=== PATIENT | male | born 1945 | race Caucasian/White ===

== ENCOUNTER 2024-02-17 13:43 | Emergency (ER) | payer MEDICARE, OTHER, SELFPAY ==
[2024-02-17 13:56] VITALS: BP 136/89
[2024-02-17] MEDS: TYLENOL 650 MG PO (17:51)
[2024-02-17] MEDS: MOTRIN 600 MG PO (17:52)
--- NOTE | 2024-02-17 17:57 | ED.GENMED ---
History of Present Illness
General
Chief Complaint: Extremity Pain (non-traumatic)
Source: patient and spouse
Exam Limitations: none
Time Seen by Provider: 02/17/24 15:40
Nursing documentation reviewed up to this point in time: agreed with
History of Present Illness
History of Present Illness:
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 He claims
that he had intermittent pain with movement and positioning over the past few months does have some chronic neck issues. He claims that today after doing the work he noticed increased stiffness discomfort with overhead movement. Denies any chest
pain shortness of breath nausea vomiting or diaphoresis.
Review of Systems
Review of Systems
Allergies reviewed?: Yes
All Other Systems: ROS reviewed and negative except as documented in HPI and ROS
Phy Exam
Physical Exam
Physical Exam:
GENERAL: Alert , in no apparent distress
EYE: pupils equal and reactive
NECK: Supple, no significant adenopathy.
ENT: o/p clr, mmm.
CARDIAC: Regular rate and rhythm .
LUNGS: Clear breath sounds bilaterally, no acute respiratory distress, no wheezes/rales/rhonchi
ABDOMEN: Soft, without focal tenderness, no r/g, no cvat
NEUROLOGICAL: Alert and oriented, no focal neuro deficits
SKIN: Warm and dry, skin intact.
MUSCULOSKELETAL: Increased discomfort with movement of the left shoulder especially with overhead movement and reproducible discomfort to left shoulder when palpating. No edema, well perfused.
PSYCH: Normal and appropriate interaction.
Course
Orders/Labs/Results
Orders:
Orders
02/17/24 13:59
ECG [Electrocardiogram (*1)] Urgent
Reason for Study: Other
Other Reason for Exam: L shoulder pain
EKG- Treatment ONCE
Shoulder, Left, Trauma CR [CR Shoulder, Trauma - Left] Urgent
Comment:
Reason For Exam: pain
02/17/24 17:39
Sling Left-Treatment ONCE
Acetaminophen [Tylenol] 650 mg PO NOW STA
Ibuprofen [Motrin] 600 mg PO NOW STA
Vital Signs
Initial and Last Documented VS:
Initial Vital Signs
Temp Pulse Resp BP Pulse Ox
99.0 F 67 18 136/89 97
02/17/24 13:56 02/17/24 13:56 02/17/24 13:56 02/17/24 13:56 02/17/24 13:56
Last Documented Vital Signs
Temp Pulse Resp BP Pulse Ox
99.0 F 67 18 136/89 97
02/17/24 13:56 02/17/24 13:56 02/17/24 13:56 02/17/24 13:56 02/17/24 13:56
MDM/Problems Addressed
MDM/Problems Addressed:
78-year-old male presenting to the emergency department with concerns of left shoulder discomfort. Pain is made worse with certain movements and palpation blood pressure and vital signs are normal upon arrival here. Denies any chest pain shortness
of breath nausea vomiting. No radiation of symptoms. Initial EKG with no acute abnormalities. X-ray with significant degenerative changes but no acute processes. No evidence of infection redness or warmth. Symptoms do not sound to be consistent
with referred pain with lack of additional associated symptoms and reproducibility of symptoms as well as chronicity of symptoms. Patient advised for close outpatient follow-up return precautions given.
*Critical Care Note
Total Time (30-74mins, 75-104mins- exclusive of procedures): Not Applicable
ED Attending Note
-
Portions of this chart may have been created with voice recognition software.� Occasional wrong word or��sound alike� substitutions may have occurred due to the inherent limitations of voice recognition software.
Discharge Plan
Departure
Patient Disposition: Home (Routine Discharge)
Date of Disposition: 02/17/24
Time of Disposition: 17:57
Patient with high blood pressure during this ER visit?: No
Condition: Good
Covid-19: Not Applicable
Discharge Problem:
Left shoulder pain
Instructions: Shoulder Sprain (DC)
Prescriptions:
New
ibuprofen 400 mg tablet
400 mg PO Q8H PRN (Reason: Pain) Qty: 7 0RF
acetaminophen 325 mg capsule
650 mg PO Q6H PRN (Reason: Pain) Qty: 10 0RF
No Action
cefdinir 300 mg capsule
300 mg PO BID 7 Days Qty: 14 0RF
Referrals:
Chalino nKott MD [Family Provider] -
Elliot Jara MD [Active] - Follow up in 5-7 days
Activity Restrictions/Additional Instructions:
You can to the emergency department today with concerns of shoulder discomfort. Please rest and lightly exercise the area until follow-up orthopedics. Return to the emergency department for any worsening, new or concerning symptoms.
Discharge Date and Time
Print Language: GERMAN
[2024-02-17 18:39] VITALS: BP 172/82
== END 2024-02-17 18:40 | disposition home or self-care (01) ==
LOC: EMR 13:43
PROVIDERS: EMERGENCY PHYSICIAN Emergency Medicine; FAMILY PHYSICIAN Family Medicine
DX: M25.512 Pain in left shoulder (principal); G40.909 Epilepsy, unspecified, not intractable, without status epilepticus; Z86.73 Personal history of transient ischemic attack (TIA), and cerebral infarction without residual deficits
CPT/HCPCS: 99283; 73030; 93005

== ENCOUNTER 2024-05-12 19:03 | Inpatient (IN) | payer MEDICARE, OTHER, SELFPAY ==
[2024-05-12 15:28] VITALS: BP 105/70
[2024-05-12 16:06] LABS: ALT (SGPT) 37 U/L (0-50); AST (SGOT) 33 U/L (17-59); Albumin 3.1 g/dl (3.5-5.0); Alkaline Phosphatase 114 U/L (38-126); Blood Urea Nitrogen 25 mg/dl (9-20); Calcium 8.4 mg/dl (8.4-10.2); Carbon Dioxide 24 mmol/L (22-30); Chloride 97 mmol/L (98-107); Glucose 166 mg/dl (70-99); Potassium 3.7 mmol/L (3.5-5.1); Sodium 136 mmol/L (135-145); Total Bilirubin 0.7 mg/dl (0.2-1.3); Total Protein 5.9 g/dl (6.3-8.2); eGFR > 60.00
[2024-05-12 16:14] LABS: COVID-19 Antigen Negative (Negative)
--- NOTE | 2024-05-12 16:24 | ED.GENMED ---
History of Present Illness
General
Chief Complaint: Cold/Flu/URI Symptoms
Source: patient
Exam Limitations: none
Time Seen by Provider: 05/12/24 16:23
Nursing documentation reviewed up to this point in time: agreed with
History of Present Illness
History of Present Illness:
78-year-old male history of CVA, hypertension, seizure disorder presenting emergency department today with concerns of shortness of breath, fever and cough for the past week. He notes that his cough is productive and he will occasionally cough up
sputum. Patient reports that this started a week ago and he attributed it to the flu. Patient states that he then saw his primary care provider in the office who recommended getting a chest x-ray. His fever today was 103 F, he subsequently took
Tylenol. He lives at home. He also notes chest discomfort across his chest associated with coughing. He denies back pain. Denies recent long distance travel. Denies smoking. Denies redness or swelling in his legs, headaches, sore throat.
Review of Systems
Review of Systems
All Other Systems: ROS reviewed and negative except as documented in HPI and ROS
Phy Exam
Physical Exam
Physical Exam:
General: Patient is well appearing and in no acute distress; non-toxic
Skin: Warm and dry, no rashes or lesions
Head: Normocephalic, atraumatic
Eyes: Sclera non-icteric. EOMs intact. PERRLA.
Cardiac: Regular rate and rhythm, no murmurs
Peripheral Vascular: No lower extremity swelling or edema
Pulm: Patient mildly tachypneic otherwise normal respiratory effort, decreased lung sounds on the left with scattered rhonchi
Abdomen: No abdominal tenderness to palpation, no palpable masses
Neuro: CN II-XII intact, no focal neurologic deficits.
Psychiatric: Appropriate mood and affect.
Sepsis
Sepsis Screening
Sepsis Assessment: Sepsis
Sepsis Screen
Sepsis Screen: Sepsis
Date: 05/12/24
Time: 18:11
Course
Orders/Labs/Results
Orders:
Orders
05/12/24 15:25
CR Chest - 2 Views Urgent
Comment:
Reason For Exam: cough
05/12/24 15:36
COVID-19 Antigen Urgent
Source: Nasal Swab
Complete Blood Count/With Diff Urgent
Comprehensive Metabolic Panel Urgent
Influenza A+B Rapid Molecular Urgent
CRYSTAL Source: Nasal Swab
Specimen Description:
05/12/24 16:47
CT Chest With Iv Contrast Urgent
Comment:
Reason For Exam: generalized chest pain, left pleural effusion
0.9% Sodium Chloride 500 ml [Nss] 500 ml IV BOLUS
Azithromycin [Zithromax] 500 mg PO NOW STA
CefTRIAXone [Rocephin] 1,000 mg IV NOW STA
05/12/24 17:01
Lactic Acid Urgent
Blood Culture Routine
CRYSTAL Source: Blood/Venous
Specimen Description:
Blood Culture Urgent
CRYSTAL Source: Blood/Venous
Specimen Description:
05/12/24 17:07
Sterile Water [Sterile Water For Injection] 10 ml .ROUTE .[facility]
Abnormal Lab Results
05/12/24
15:36
WBC 37.0 H 10^3/uL
(4.8-10.8)
RBC 3.79 L 10^6/uL
(4.70-6.10)
Hgb 11.6 L g/dL
(13.0-18.0)
Hct 32.2 L %
(39.0-52.0)
Plt Count 767 H 10^3/uL
(130-400)
Abs Immat Gran (auto) 0.5 H 10^3/uL
(0-0.05)
Absolute Neuts (auto) 33.5 H 10^3/uL
(1.4-6.5)
Absolute Lymphs (auto) 1.0 L 10^3/uL
(1.2-3.4)
Absolute Monos (auto) 2.0 H 10^3/uL
(0.1-0.6)
Immature Gran % 1.2 H %
(0-0.5)
Neutrophils % 90.5 H %
(42.2-75.2)
Lymphocytes % 2.8 L %
(20.5-51.1)
Chloride 97 L mmol/L
(98-107)
BUN 25 H mg/dl
(9-20)
Glucose 166 H mg/dl
(70-99)
Total Protein 5.9 L g/dl
(6.3-8.2)
Albumin 3.1 L g/dl
(3.5-5.0)
05/12/24 15:36
05/12/24 15:36
Vital Signs
Initial and Last Documented VS:
Initial Vital Signs
Temp Pulse Resp BP Pulse Ox
98.9 F 105 24 105/70 95
05/12/24 15:28 05/12/24 15:28 05/12/24 15:28 05/12/24 15:28 05/12/24 15:28
Last Documented Vital Signs
Temp Pulse Resp BP Pulse Ox
98.9 F 87 26 145/63 92
05/12/24 15:28 05/12/24 17:15 05/12/24 17:15 05/12/24 17:00 05/12/24 17:15
MDM/Problems Addressed
Differential Diagnosis Includes:
Differentials include pneumonia, pleural effusion, COVID-19, influenza, acute bronchitis, heart failure
MDM/Problems Addressed:
78-year-old male history of CVA, hypertension presents emergency department today with a week of shortness of breath, fever, and flulike symptoms. He did have a fever at home but was afebrile upon presentation to the emergency department. He was
mildly hypotensive at 105/70 and mildly tachycardic at 105 upon arrival. He has decreased breath sounds on the left side. He was found to have a left-sided pleural effusion with possible underlying pneumonia or mass, blood cultures ordered,
lactate ordered, IV fluids and antibiotics started. He comes from home and has no obvious risk factors for drug-resistant pneumonia CBC reveals leukocytosis of 37 K with left shift, this will require further workup, concern for malignancy. CT
ordered for better characterization of pulmonary disease. Hospitalist notified.
Chronic conditions affecting care:
HTN, CVA
Acute Exacerbation and/or Progression of Chronic Illness:
n/a
*Pulse Oximetry
Patient hypoxic: no
*Critical Care Note
Total Time (30-74mins, 75-104mins- exclusive of procedures): Not Applicable
Data Reviewed
Review of Other/Old Records Reveals: Records (No hospital discharge summary in [facility] to review, reviewed previous ER physician documentation from 02/17/2024 patient was seen for left shoulder pain, also reviewed previous ER visit or patient was
seen for general malaise and fatigue)
Source: patient and records
Patient Management
Escalation/DeEscalation of care consider admission/obs:
Reviewed case with my attending Dr. Chapa. Patient referred for admission
ED Attending Note
-
Portions of this chart may have been created with voice recognition software.� Occasional wrong word or��sound alike� substitutions may have occurred due to the inherent limitations of voice recognition software.
Discharge Plan
Departure
Patient Disposition: Admit
Date of Disposition: 05/12/24
Time of Disposition: 17:50
Admit to: Med/Surg
Presentation/result/management discussed w/ accepting MD/DO: Hospitalist
Condition: Good
Discharge Problem:
Pleural effusion on right, Community acquired pneumonia
Prescriptions:
No Action
cefdinir 300 mg capsule
300 mg PO BID 7 Days Qty: 14 0RF
ibuprofen 400 mg tablet
400 mg PO Q8H PRN (Reason: Pain) Qty: 7 0RF
acetaminophen 325 mg capsule
650 mg PO Q6H PRN (Reason: Pain) Qty: 10 0RF
Referrals:
UNKNOWN - PT DOES,NOT KNOW [Unknown Provider] -
Interventions
Interventions:
*Risk Screen - Suicide Last Done: 05/12/24 15:28
*General Assessment Last Done: 05/12/24 15:28
*Neglect/Abuse Screening Last Done: 05/12/24 15:28
*ED COVID-19 Vaccine History Last Done: 05/12/24 17:03
ED- Pulmonary Assessment Last Done: 05/12/24 17:03
Discharge Date and Time
Print Language: TRINIDADIAN
[2024-05-12 16:37] LABS: % Basophils 0.2 % (0-2); % Immature Granulocytes 1.2 % (0-0.5); % Lymphocytes 2.8 % (20.5-51.1); % Monocytes 5.3 % (1.7-9.3); % Neutrophils 90.5 % (42.2-75.2); Absolute Basophils 0.1 10^3/uL (0-0.2); Absolute Immature Granulocytes 0.5 10^3/uL (0-0.05); Absolute Neutrophils 33.5 10^3/uL (1.4-6.5); Hematocrit 32.2 % (39.0-52.0); Hemoglobin 11.6 g/dL (13.0-18.0); Mean Corpuscular Hgb 30.6 pg (27.0-31.0); Mean Platelet Volume 8.9 fL (7.4-10.4); Nucleated Red Blood Cells % 0 % (-); Platelet Count 767 10^3/uL (130-400); Red Blood Cell Count 3.79 10^6/uL (4.70-6.10); Red Cell Dist. Width 13.2 % (11.5-14.5)
[2024-05-12 16:54] VITALS: BP 134/74
[2024-05-12 17:00] VITALS: BP 145/63
[2024-05-12 17:02] VITALS: BMI 20.3
[2024-05-12] MEDS: ZITHROMAX 500 MG PO (17:09)
[2024-05-12] MEDS: ROCEPHIN 1000 MG IV (17:09)
[2024-05-12] MEDS: NSS 500 IV (17:09)
[2024-05-12 17:27] LABS: Lactic Acid 1.9 mmol/L (0.7-2.0)
--- NOTE | 2024-05-12 18:26 | HPS.HSE ---
Family Physician
-
Family Physician: Chalino Knott
Chief Complaint
-
Fever, cough and shortness of breath
History of Present Illness
It started 2 weeks ago. He started to have nasal congestion, cough and not feeling well. He took Mucinex. He felt better but then since last week symptoms started to come back. He is having persistent chest congestion now. Inability to
expectorate. Started to have fevers and chills. No sweats. And then he started to notice shortness which is getting worse.
Didn't not yet take antibiotics.
Denies any primary lung problem. Denies any prior history of pneumonia. Neck smoker quit 4 years ago.
Denies any cardiac disease-no CAD or heart failure.
Denies any nausea vomiting or diarrhea.
No abdominal pain.
No recent travel anywhere.
No contact with sick people.
Medical History
Past Medical History
Past Medical History: Reports CVA (TIA), Seizures and Other (TBI)
Past Surgical History: Reports None
Social History
Tobacco: Former Smoker
Personal:
Living: With Family
Employment: Retired
Family History
Family History: Not pertinent
Allergies / Home Medications
Allergies reflects when Allergies were last updated in [facility].
Home Medications with original date entered in [facility]
Allergy/Medication List:
Allergies
Allergy/AdvReac Type Severity Reaction Status Date / Time
levetiracetam [From [facility]] Allergy Unknown Verified 05/12/24 15:33
oxcarbazepine Allergy Unknown Verified 05/12/24 15:33
Home Medications
aspirin 81 mg tablet,delayed release 81 mg PO DAILY@1300 05/12/24
budesonide 3 mg capsule,delayed,extended release 3 mg PO DAILY@1300 05/12/24
cyanocobalamin (vitamin B-12) 1,000 mcg tablet 1,000 mcg PO DAILY@1300 05/12/24
doxazosin 1 mg tablet 1 mg PO DAILY 05/12/24
gabapentin 100 mg capsule 100 mg PO QPM 05/12/24
lacosamide 100 mg tablet 100 mg PO BID 05/12/24
lorazepam 1 mg tablet 1 mg PO QPM 05/12/24
omeprazole 40 mg capsule,delayed release 40 mg PO DAILY@1300 05/12/24
Review of Systems
-
A 12 point ROS was completed and negative except as noted: Yes
Physical Exam
Vital Signs
Vital Signs
Temp Pulse Resp BP Pulse Ox
98.9 F 87 26 145/63 92
05/12/24 15:28 05/12/24 17:15 05/12/24 17:15 05/12/24 17:00 05/12/24 17:15
Physical Exam
General: Comfortable
Respiratory: Crackles (Few in right base), Non Labored Respirations and Decreased Breath Sounds (right base); No Accessory Resp Muscle Use
GI: Soft, Non Tender and No Hepatosplenomegaly
Neuro: AO x 3
Psych: Calm
Laboratory Results
-
05/12/24 15:36
05/12/24 15:36
Laboratory Results
Lactic Acid 1.9 mmol/L (0.7-2.0) 05/12/24 17:01
Total Bilirubin 0.7 mg/dl (0.2-1.3) 05/12/24 15:36
AST 33 U/L (17-59) 05/12/24 15:36
ALT 37 U/L (0-50) 05/12/24 15:36
Alkaline Phosphatase 114 U/L (38-126) 05/12/24 15:36
Data Reviewed
-
Diagnostic Radiology: Report Reviewed by me (cxr)
Lab Data: Labs Reviewed by me
Impression/Plan
-
Community-acquired pneumonia involving the right lung and complicated by moderate right pleural effusion. Patient without any underlying lung disease but I do see a CT in 2020 showed right lower lobe pulmonary nodules. He does not remember getting
a follow-up CAT scan. But based on the history of 2 weeks of symptoms and fevers concerned more about infectious pneumonia. Immunocompetent patient.
Admit to hospital. Start on empirical ceftriaxone and doxycycline. Check blood cultures, sputum cultures and Legionella antigen.
Consult pulmonary.
Start on antitussives.
Consult IR for diagnostic and therapeutic right thoracentesis. Labs were right thoracentesis requested.
Follow Chest CT ordered in ED.
Leukocytosis - significant elevation with thrombocytosis - no prior hx of myeloproliferative disorder. Treat pneumonia and follow white count.
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
Full code
[2024-05-12 18:43] VITALS: BP 139/72
[2024-05-12 19:00] VITALS: BP 144/66
[2024-05-12 20:14] VITALS: BP 127/73
[2024-05-12 20:15] VITALS: BMI 19.8
[2024-05-12] MEDS: NEURONTIN 100 MG PO (21:15)
[2024-05-12] MEDS: TYLENOL 650 MG PO (21:15)
[2024-05-12] MEDS: MELATONIN 5 MG PO (21:15)
[2024-05-12] MEDS: ATIVAN 1 MG PO (21:15)
[2024-05-12] MEDS: VIMPAT 100 MG PO (21:15)
[2024-05-12] MEDS: MUCINEX 600 MG PO (21:15)
[2024-05-12] MEDS: VIBRAMYCIN 100 MG PO (21:15)
[2024-05-12 22:13] LABS: LDH 184 U/L (120-246)
[2024-05-12] MEDS: STERILE WATER FOR INJECTION 10 ML IV (23:00)
[2024-05-12] MEDS: MAXIPIME 1000 MG IV (23:25)
[2024-05-13] VITALS (8 sets, daily range): BP systolic 88–149; BP diastolic 63–79; PULSE 87; O2SAT 96
[2024-05-13 07:27] LABS: Hematocrit 32.7 % (39.0-52.0); Hemoglobin 11.7 g/dL (13.0-18.0); Mean Corp Hgb Conc. 35.8 g/dL (33.0-37.0); Mean Corpuscular Hgb 31.8 pg (27.0-31.0); Mean Corpuscular Volume 88.9 fL (80.0-94.0); Mean Platelet Volume 8.9 fL (7.4-10.4); Platelet Count 803 10^3/uL (130-400); Red Blood Cell Count 3.68 10^6/uL (4.70-6.10); Red Cell Dist. Width 13.2 % (11.5-14.5); White Blood Cell Count 46.8 10^3/uL (4.8-10.8)
[2024-05-13 07:46] LABS: Blood Urea Nitrogen 23 mg/dl (9-20); Calcium 8.2 mg/dl (8.4-10.2); Carbon Dioxide 30 mmol/L (22-30); Chloride 96 mmol/L (98-107); Estimated Creatinine Clearance 68 ml/min; Glucose 100 mg/dl (70-99); Potassium 3.5 mmol/L (3.5-5.1); Sodium 139 mmol/L (135-145); eGFR > 60.00
[2024-05-13] MEDS: MUCINEX 600 MG PO ×2 (07:53→20:12)
[2024-05-13] MEDS: VIBRAMYCIN 100 MG PO ×2 (07:53→20:12)
[2024-05-13] MEDS: VIMPAT 100 MG PO ×2 (07:54→20:13)
[2024-05-13] MEDS: CARDURA 1 MG PO (07:54)
--- NOTE | 2024-05-13 09:39 | PTOTSP ---
Addendum entered and electronically signed by Pam Romero MS, ST, CCC, PIZZA CHEF 05/22/24 07:31:
BEDSIDE SWALLOW ASSESSMENT Not video swallow
Original Note:
Video Swallow Examination
Patient without gross signs of aspiration, but past VSE demonstrated pharyngeal stasis and trace transient laryngeal penetration. Given this history and current CT findings of possible right lower lobe pna, recommend VSE to objectively assess for
aspiration.
Recommend
1. Continue current diet of Regular solids and thin liquids with patient electing to choose soft foods.
2. Video Swallow Examination
3. Aspiration precautions.
4. Meds as tolerated
Further recommendations based on results of VSE.
--- NOTE | 2024-05-13 12:05 | PTOTSP ---
Video Swallow Examination
No aspiration, however one instance of trace upper laryngeal penetration of thin liquid by consecutive straw sips. Mild pharyngeal stasis mainly within pyriform sinuses increases risk for chronic trace penetration/aspiration.
Recommend
1. Continue current diet of regular solids and thin liquids.
2. NO STRAWS. Encourage dry swallows
3. Meds as tolerated.
4. Aspiration precautions.
[2024-05-13 12:27] LABS: Body Fluid pH 6.94
[2024-05-13] MEDS: TYLENOL 650 MG PO (12:39)
[2024-05-13] MEDS: ASPIR LOW (ENTERIC COATED) 81 MG PO (12:40)
[2024-05-13] MEDS: ENTOCORT EC 3 MG PO (12:40)
[2024-05-13] MEDS: PROTONIX 40 MG PO (12:40)
[2024-05-13] MEDS: VITAMIN B-12 1000 MCG PO (12:41)
[2024-05-13 12:45] LABS: Body Fluid Protein 3.7 g/dl
--- NOTE | 2024-05-13 12:45 | PTCARENOTE ---
Pt returned from [facility] s/p right thoracentesis. Bandaid to right back CDI. Pt drowsy, unsteady on feet, feeling warm, temp checked 102.3. Medicated with tylenol, reassessed, more awake, conversive temp 99.0, requesting a fan, Family at bedside,
updated, plan of care continues.
[2024-05-13 12:53] LABS: Body Fluid LDH 1252 U/L
--- NOTE | 2024-05-13 15:22 | W.PN.HOSP.TC ---
Today's Communication/Plan
-
Consult IR for CT.
Consult ID for abx choice.
Follow cx data.
Assessment / Plan
Assessment / Plan
Community-acquired pneumonia involving the right lung and complicated by moderate right pleural effusion. Patient without any underlying lung disease but I do see a CT in 2020 showed right lower lobe pulmonary nodules. He does not remember getting
a follow-up CAT scan. But based on the history of 2 weeks of symptoms and fevers concerned more about infectious pneumonia. Immunocompetent patient.
No ongoing fevers, significant elevation close leukemoid reaction with regards to white count, fluid pH 6.94, and exudative pleural fluid.
only 120 mL of fluid came out with the initial thoracentesis. Post tomosynthesis chest x-ray still shows significant pleural effusion.
Would benefit chest 2. Consulted IR.
cw empirical ceftriaxone and doxycycline. Check blood cultures, sputum cultures and Legionella antigen. Consult IR.
Consult pulmonary -discussed todat
cw antitussives.
Chest CT noted
Leukocytosis - significant elevation with thrombocytosis - no prior hx of myeloproliferative disorder. Treat pneumonia and follow white count.
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
Full code
DW at bedside
Total time spent on today's encounter was 52 minutes which included time spent in counseling the patient/family regarding diagnosis and treatment plan as listed above, goals of care, and symptom management. Case was discussed with nursing staff,
specialists, and care coordinators/case management. All labs and imaging personally reviewed by me. Remainder the time spent in detailed review of previous records, lab data, imaging, and other medical provider documentation.
Anticipated Discharge: > 48 hours
Subjective/Interval History
-
Date of Service: May 13, 2024
Denies right-sided chest pain. Denies shortness of breath at rest. On room air.
Does not really feel the fevers.
No nausea vomiting.
Objective Data
-
Labs:
Laboratory Results
05/13/24
06:53
WBC 46.8 H*
Hgb 11.7 L
Hct 32.7 L
Plt Count 803 H
Sodium 139
Potassium 3.5
Chloride 96 L
Carbon Dioxide 30
BUN 23 H
Creatinine 0.8
Glucose 100 H
Calcium 8.2 L
Vital Signs:
Vital Signs
Temp Pulse Resp BP Pulse Ox
99.0 F 87 18 141/75 98
05/13/24 14:47 05/13/24 12:41 05/13/24 12:41 05/13/24 12:41 05/13/24 12:41
I&O
05/12/24 05/13/24 05/14/24
06:59 06:59 06:59
Intake Total 240 / 240
Output Total 150 / 150
Balance 90 / 90
Review of Systems
-
Constitutional: Denies Fever
EENT: Denies Sore Throat
Respiratory: Denies Cough or Trouble Breathing
Cardiac: Denies Chest Pain
Abdomen/GI: Denies Abdominal Pain, Nausea or Vomiting
Neuro: Denies Dizzy
Physical Exam
-
General: No Apparent Distress
HEENT: Moist Mucous Membranes
Respiratory: Decreased Breath Sounds (rt base); Negative Wheezes
Cardiac: Regular Rhythm and S1/S2
GI: Soft and Nontender
Neuro: AO x 3
Data Reviewed
-
Labs: Labs Reviewed by me
--- NOTE | 2024-05-13 15:44 | CON.PUL ---
Consultation
Consultation Request
Date/Time Consultation Requested: 05/13/2024
Date/Time Consultation Performed: 05/13/2024
Requesting Provider: Dr. Fischer
Performing Provider: Dr. Jose R García
Reason for Consultation: Pneumonia/Pleural effusion
Medical History
-
History of Present Illness:
78-year-old male with past medical history significant for prior CVA, history of seizures, post TBI who came to the hospital with 2-week history of coughing, chest congestion, feeling tired and weak. Reports some phlegm production without
hemoptysis. Low-grade fevers.
Denied any nausea vomiting or diarrhea.
He had difficulty expectorating. Few days ago started having high fevers and chills. Also progressive shortness of breath.
He denies any underlying pulmonary problems from
He does report intermittent swallowing dysfunction.
Admitted to the hospital on 05/12/2024 for further evaluation given significantly abnormal chest x-ray with right lower lobe abnormality with moderate pleural effusion.
Past Medical History
Past Medical History: Other (See assessment and plan)
Social History
Tobacco: Former Smoker (Longer than 20 years ago he quit)
Alcohol: None
Drug: None
Personal:
Living: With Family
Employment: Retired
Family History
Family History: Reviewed & Not Pertinent
Allergies / Home Medications
Allergies
Allergy/AdvReac Type Severity Reaction Status Date / Time
levetiracetam [From Kera] Allergy Unknown Verified 05/12/24 15:33
oxcarbazepine Allergy Unknown Verified 05/12/24 15:33
Home Medications
�Medication �Instructions �Recorded �Confirmed �Last Taken �Type
aspirin 81 mg tablet,delayed 81 mg PO DAILY@1300 05/12/24 05/12/24 05/11/24 History
release
budesonide 3 mg 3 mg PO DAILY@1300 05/12/24 05/12/24 05/11/24 History
capsule,delayed,extended release
cyanocobalamin (vitamin B-12) 1,000 mcg PO DAILY@1300 05/12/24 05/12/24 05/11/24 History
1,000 mcg tablet
doxazosin 1 mg tablet 1 mg PO DAILY 05/12/24 05/12/24 05/12/24 History
gabapentin 100 mg capsule 100 mg PO QPM 05/12/24 05/12/24 05/11/24 History
lacosamide 100 mg tablet 100 mg PO BID 05/12/24 05/12/24 05/12/24 History
lorazepam 1 mg tablet 1 mg PO QPM 05/12/24 05/12/24 05/11/24 History
omeprazole 40 mg capsule,delayed 40 mg PO DAILY@1300 05/12/24 05/12/24 05/11/24 History
release
Review of Systems
-
History Source: Patient
All other systems: Negative unless noted
Vitals / Labs / Diagnostic Testing
Vital Signs
Temp Pulse Resp BP Pulse Ox
99.0 F 87 18 141/75 98
05/13/24 14:47 05/13/24 12:41 05/13/24 12:41 05/13/24 12:41 05/13/24 12:41
Lab Data
05/13/24 06:53
05/13/24 06:53
Microbiology
05/13/24 11:58 Pleural Fluid Gram Stain - Preliminary
05/13/24 07:41 Sputum Gram Stain - Preliminary
05/13/24 05:32 Urine Legionella Urinary Antigen - Final
Negative for Legionella pneumophila Serogroup 1 antigen.
A negative result does not rule out the possiblity of
Legionella infection due to other serogroups or species of
Legionella. Clinical correlation is recommended.
05/12/24 15:36 Nasal Swab Influenza Types A & B (KRISTYN) - Final
Negative for Influenza A & B, NAAT
Negative results must be combined with clinical observations
and patient history.
Nucleic Acid Amplification test (NAAT)performed on the
[employer] platform.
Diagnostic Testing:
Physical Exam
-
HEENT: Normocephalic
Cardiovascular: S1/S2
Respiratory: Other (Decreased breath sounds in the right)
GI: Soft and Non Distended
Neurology: Awake, Alert, AO x 3 and No Motor Deficits
Skin: Warm
General: Comfortable
Assessment
-
Severe large right lower lobe pneumonia with complicated parapneumonic effusion-cannot rule out empyema
Leukocytosis/Fever
Cannot rule out aspiration event as patient has poor dentition and swallowing dysfunction that is chronic.
Conditions present prior admission:
History of CVA
History of TBI
History of seizure disorder.
Assessment and plan:
Imaging reviewed, CT of the chest with right lower lobe consolidation with moderate pleural effusion.
Cannot rule out underlying lung nodule or mass
Aspiration a possibility despite normal bedside speech evaluation.
Continue with aspiration precaution
Broad-spectrum antibiotics: Cefepime/doxycycline-follow cultures and will adjust antibiotics as necessary.
Follow cultures
Secretion clearance interventions will continue
Thoracentesis performed today 05/13/2024: Exudative. pH<7
Repeat chest x-ray reviewed, with persistent right loculated Pleural effusion.
Cultures pending
Discussed with Dr. Rock, agree with chest tube placement.
-
Monitor fever curve and leukocytosis
-
Will continue to follow
-
Dr. García updated patient and at the bedside on 05/13/2024.
[2024-05-13] MEDS: NEURONTIN 100 MG PO (18:17)
[2024-05-13] MEDS: ATIVAN 1 MG PO (18:17)
[2024-05-13] MEDS: LOVENOX 40 MG SC (18:18)
[2024-05-13] MEDS: MAXIPIME 2000 MG IV (18:18)
[2024-05-13] MEDS: STERILE WATER FOR INJECTION 10 ML IV (18:19)
--- NOTE | 2024-05-13 19:43 | CON.ID ---
Consultation
-
Date/Time Consultation Requested: 05/13/2024 1522
Date/Time Consultation Performed: 05/13/2024 1937
Requesting Provider: Dr. Rock
Performing Provider: Dr. Puga
Reason for Consultation: Pneumonia; suspected empyema; leukocytosis
Chief Complaint / Past History
History of Present Illness
Henri Sánchez is a 78-year-old man being evaluated at the request of Dr. Rock in regards to pneumonia and suspected empyema. History is obtained from chart review, along with patient interview. Additional history was obtained from the patient's
who is present at the bedside.
The patient has underlying history of CVA, seizure disorder and TBI. He resides at home with his and was in his usual state of health until approximately 2 weeks ago when he developed a upper respiratory infection with associated nasal
congestion, runny nose and some sputum. This lasted approximately 5 days and then he felt for approximately 2 days, with subsequent development of fevers, anterior chest tightness. Cough also returned, but at this time no sputum was being
produced. Because of the ongoing respiratory cough and pleuritic chest pain he presented to the emergency room for further evaluation. Here he was found to have a marked right lower lobe infiltrate and suspected pleural effusion/possible empyema.
Infectious Diseases is asked to comment upon further antimicrobial therapy.
The patient reports no sick contacts at home. There is been no recent travel. No history of tuberculosis in the family.
Past History
Additional Past Medical History:
CVA
HTN
Seizure disorder
Hx TBI
Additional Past Surgical History:
Neck fracture; C1-2 fusion
Allergy History:
levetiracetam [From Keppra] Allergy (Verified 05/12/24 15:33)
Unknown
oxcarbazepine Allergy (Verified 05/12/24 15:33)
Unknown
Medications Reviewed: Yes
Current Antibiotics:
Cefepime 2 g IV every 8 hours
Doxycycline
Social History
Tobacco: Former Smoker
Alcohol: None
Drug: None
Personal:
Living: With Family
Employment: Retired ( [employer])
Review of Systems
Vital Signs
Temp Pulse Resp BP Pulse Ox
99 F 82 18 132/74 95
05/13/24 16:40 05/13/24 16:40 05/13/24 16:40 05/13/24 16:40 05/13/24 16:40
Physical Exam
Physical Exam
Constitutional: No Acute Distress, Comfortable, Chronically Ill and Non-toxic
Eyes: No Conjunctival Hemorrhage and Sclera Anicteric
Oral: No Thrush and No Ulcers
Cardiovascular: S1/S2; Negative S3/S4
Pulmonary: Coarse, Non Labored and Other (Decreased breath sounds right base)
Gastrointestinal: Soft, Non Tender, Non Distended, Normal Bowel Sounds and No Rebound
Genito-Urinary: Negative CVA Tenderness
Extremities: Negative Edema, Cyanosis or Erythema
Skin: Warm and Dry; Negative Jaundice
Neurological: Awake and Alert
Psychological: Calm
Lab / Diagnostic Study Results
05/13/24 06:53
05/13/24 06:53
Abs Immat Gran (auto) 0.5 10^3/uL (0-0.05) H 05/12/24 15:36
Absolute Neuts (auto) 33.5 10^3/uL (1.4-6.5) H 05/12/24 15:36
Absolute Lymphs (auto) 1.0 10^3/uL (1.2-3.4) L 05/12/24 15:36
Absolute Monos (auto) 2.0 10^3/uL (0.1-0.6) H 05/12/24 15:36
Absolute Basos (auto) 0.1 10^3/uL (0-0.2) 05/12/24 15:36
Immature Gran % 1.2 % (0-0.5) H 05/12/24 15:36
Neutrophils % 90.5 % (42.2-75.2) H 05/12/24 15:36
Lymphocytes % 2.8 % (20.5-51.1) L 05/12/24 15:36
Monocytes % 5.3 % (1.7-9.3) 05/12/24 15:36
Eosinophils % 0.0 % (0-6) 05/12/24 15:36
Basophils % 0.2 % (0-2) 05/12/24 15:36
Lactic Acid 1.9 mmol/L (0.7-2.0) 05/12/24 17:01
Microbiology Results
Micro:
05/12/24 17:01 Blood Culture - Preliminary
Blood/Venous No Growth in 24 hours- Final report to follow
05/12/24 17:01 Blood Culture - Preliminary
Blood/Venous No Growth in 24 hours- Final report to follow
05/13/24 11:58 Body Fluid Culture - Pending
Pleural Fluid Gram Stain - Preliminary
05/13/24 07:41 Respiratory Culture - Pending
Sputum Gram Stain - Preliminary
05/13/24 05:32 Legionella Urinary Antigen - Final
Urine Negative for Legionella pneumophila Serogroup 1 antigen.
A negative result does not rule out the possiblity of
Legionella infection due to other serogroups or species of
Legionella. Clinical correlation is recommended.
05/12/24 15:36 Influenza Types A & B (KRISTYN) - Final
Nasal Swab Negative for Influenza A & B, NAAT
Negative results must be combined with clinical observations
and patient history.
Nucleic Acid Amplification test (NAAT)performed on the
[employer] platform.
Imaging:
05/13/2024 CXR (portable): Persistent moderate loculated right-sided pleural effusion with adjacent atelectasis. No visible pneumothorax.
05/12/2024 CT chest with contrast: Moderate to large lobulated right pleural effusion, possibly partially loculated, new in the interval since the comparison CT of 2020. Accompanying somewhat rounded/oblong shaped area of heterogeneous slight
decreased attenuation in the right lower lobe measuring approximately 5 cm. Differential diagnostic possibilities include infectious process (such as pneumonia) or mass/tumor. Please see full dictation for additional detail. Film personally
reviewed.
Assessment / Plan
Right lower lobe pneumonia
Pleural effusion versus empyema.
Marked leukocytosis; possible leukemoid reaction
Anemia
Thrombocytosis
CVA
HTN
Seizure disorder
Hx TBI
Recommendations:
Continue with empiric cefepime and doxycycline for the present. Transition cefepime to 1 g IV every 6 hours.
Sputum culture and pleural fluid culture are currently pending.
Legionella urinary antigen negative
Follow white count and temperature curve.
Await possible chest tube placement
Check screening MRSA PCR.
[2024-05-13] MEDS: MELATONIN 5 MG PO (20:13)
[2024-05-14] VITALS (14 sets, daily range): BP systolic 80–157; BP diastolic 54–85; PULSE 97; O2SAT 94; BMI 19.5
[2024-05-14] MEDS: STERILE WATER FOR INJECTION 10 ML IV ×4 (00:37→17:58)
[2024-05-14] MEDS: MAXIPIME 1000 MG IV ×4 (00:37→17:58)
[2024-05-14] MEDS: TYLENOL 650 MG PO ×2 (05:59→17:54)
--- NOTE | 2024-05-14 08:19 | CM ---
met with patient at bedside.patient lives with his in house witb no bertram,his bed andbath is on the second level,he amb i and is I with his adl.he hs no home oxygen.he has had a vn in past and has been to ip rehab at [facility]
PCP:dr manpreet newsome Pharmacy: [facility]
DME:walker,shower chair
PMH:fprmer smoker,cva,seizures,post traumatic brain injury
patient is adm with severe rll pna,on iv abx,po doxy,mucinex,sating 93% on ra,sp r thoracentesis for r pleurl effusion with 150cc fluid obtained,follow cxs.seen by therapy-home pt recommnded,may need st rehab.Plan:home pt vs need for ip rehab.
[2024-05-14 09:11] LABS: Hematocrit 29.9 % (39.0-52.0); Hemoglobin 10.3 g/dL (13.0-18.0); Mean Corp Hgb Conc. 34.4 g/dL (33.0-37.0); Mean Corpuscular Hgb 29.8 pg (27.0-31.0); Mean Corpuscular Volume 86.4 fL (80.0-94.0); Mean Platelet Volume 9.3 fL (7.4-10.4); Platelet Count 739 10^3/uL (130-400); Red Blood Cell Count 3.46 10^6/uL (4.70-6.10); Red Cell Dist. Width 13.2 % (11.5-14.5); White Blood Cell Count 32.7 10^3/uL (4.8-10.8)
[2024-05-14] MEDS: CARDURA 1 MG PO (09:52)
[2024-05-14] MEDS: VIMPAT 100 MG PO ×2 (09:52→21:18)
[2024-05-14] MEDS: VIBRAMYCIN 100 MG PO ×2 (09:52→21:18)
[2024-05-14] MEDS: MUCINEX 600 MG PO ×2 (09:52→21:18)
[2024-05-14 10:14] LABS: Blood Urea Nitrogen 24 mg/dl (9-20); Calcium 7.9 mg/dl (8.4-10.2); Carbon Dioxide 28 mmol/L (22-30); Chloride 97 mmol/L (98-107); Estimated Creatinine Clearance 67 ml/min; Glucose 85 mg/dl (70-99); Potassium 3.7 mmol/L (3.5-5.1); Sodium 135 mmol/L (135-145); eGFR > 60.00
--- NOTE | 2024-05-14 11:02 | W.PN.PUL3 ---
Today's Communication / Plan
-
Continue antibiotics
Chest tube placement
Assessment
-
Severe large right lower lobe pneumonia with complicated parapneumonic effusion-cannot rule out empyema
Leukocytosis/Fever
Cannot rule out aspiration event as patient has poor dentition and swallowing dysfunction that is chronic.
Conditions present prior admission:
History of CVA
History of TBI
History of seizure disorder.
Assessment and plan:
Imaging reviewed, CT of the chest with right lower lobe consolidation with moderate pleural effusion-rule out empyema versus complicated parapneumonic effusion.
Cannot rule out underlying lung nodule or mass
Aspiration a possibility despite normal bedside speech evaluation.
Continue with aspiration precaution
Broad-spectrum antibiotics: Cefepime/doxycycline-follow cultures and will adjust antibiotics as necessary.
Infectious disease consulted, correspondence reviewed.
Follow cultures
Secretion clearance interventions will continue
Thoracentesis performed 05/13/2024: Exudative. pH<7, pH 7.94, total protein 3.7, LDH 1252.
Repeat chest x-ray, with persistent right loculated Pleural effusion.
So far pleural fluid negative
Sputum culture with normal respiratory mic
Discussed with Dr. Rock, agree with chest tube placement. Hopefully chest tube placement today.
Thrombolysis/dornase alpha may be necessary.
Daily chest x-ray
-
Monitor fever curve and leukocytosis-fever curves improving. Leukocytosis improving
-
Will continue to follow
-
Dr. García updated patient and at the bedside on 05/13/2024.
Subjective Data
-
Date of Service:
Date of Service: May 14, 2024
Chief Complaint: Pulmonary Follow Up (Pneumonia with parapneumonic effusion)
Subjective:
No new complaints overnight
Fever curve appears to be trending lower
Denies hemoptysis
Continues to report some coughing
Denies any chest pain
Review of Systems
Cardiopulmonary: Dyspnea (none at rest)
GI: Abdominal Pain (n) and Nausea (n)
Neuro: Headache (n)
Objective Data
Data Reviewed
Vital Signs / I&O / Oxygen:
Vital Signs
Temp Pulse Resp BP Pulse Ox
98.4 F 72 22 132/68 93
05/14/24 09:42 05/14/24 09:52 05/14/24 07:22 05/14/24 09:52 05/14/24 09:42
Intake and Output
05/13/24 05/14/24 05/15/24
06:59 06:59 06:59
Intake Total 240 / 240 1200 / 1200
Output Total 150 / 150
Balance 90 / 90 1200 / 1200
SaO2 93
Physical Exam
General: Comfortable
HEENT: Normocephalic
Cardiovascular: S1-S2
Respiratory: Wheeze (n) and Other (Right-sided crackles/decreased breath sounds at bases)
GI: Soft and Non Distended
Neurology: Awake
Labs/Micro/Reports
Lab Data
05/14/24 07:35
05/14/24 07:35
Microbiology
05/13/24 11:58 Pleural Fluid Body Fluid Culture - Preliminary
No Growth After 18-24 Hours
05/13/24 11:58 Pleural Fluid Gram Stain - Preliminary
05/13/24 07:41 Sputum Respiratory Culture - Preliminary
Usual Respiratory Mic
05/13/24 07:41 Sputum Gram Stain - Preliminary
05/12/24 17:01 Blood/Venous Blood Culture - Preliminary
No Growth in 24 hours- Final report to follow
05/12/24 17:01 Blood/Venous Blood Culture - Preliminary
No Growth in 24 hours- Final report to follow
05/13/24 05:32 Urine Legionella Urinary Antigen - Final
Negative for Legionella pneumophila Serogroup 1 antigen.
A negative result does not rule out the possiblity of
Legionella infection due to other serogroups or species of
Legionella. Clinical correlation is recommended.
05/12/24 15:36 Nasal Swab Influenza Types A & B (KRISTYN) - Final
Negative for Influenza A & B, NAAT
Negative results must be combined with clinical observations
and patient history.
Nucleic Acid Amplification test (NAAT)performed on the
[employer] platform.
--- NOTE | 2024-05-14 12:56 | PN.CDI ---
CDI
- -
CDI:
Physician Documentation Request
Admit Date: 05/12/24 19:03
Dear Doctor Pranav,
Patient admitted with pneumonia.
On admission, WBC 37.0, T max 101.8 and RR > 20.
Patient received IV Maxipime, IV Rocephin, po Zithromax and po Doxycycline.
Please clarify which of the following most accurately describes the status of the patient's infection:
Sepsis, POA
Pneumonia Only
Other
Sepsis
- Systemic manifestations of infection, with 2 or more SIRS criteria which include:
- Fever >100.4 degrees F or hypothermia < 96.8 degrees F
- Leukocytosis - WBC > 12,000 or leukopenia - WBC < 4,000 or > 10% bands
- Tachycardia > 90 beats per minute
- Tachypnea - RR > 20 breaths per minute or PaCO2 , 32mmHg
Source: Merck Manual 2013
- Indicate the known or suspected organism
- Indicate the known or suspected underlying infection, such as pneumonia
Localized Infection Only, Without Systemic Illness
- indicate the site/source, such as pneumonia
Other
Unable to Determine
Use of terms such as suspected, likely, concern for, or probable (associated with a specific diagnosis that is being evaluated, monitored, or treated as if it exists) are acceptable and can be coded in the inpatient setting, when documented at the
time of discharge.
Thank you,
Loreto LOPEZ,RN,CCDS
CDI Specialist
Available via [facility] text
Please use your independent medical judgment in providing your response.
[2024-05-14] MEDS: VITAMIN B-12 1000 MCG PO (12:57)
[2024-05-14] MEDS: PROTONIX 40 MG PO (12:57)
[2024-05-14] MEDS: ENTOCORT EC 3 MG PO (12:57)
[2024-05-14] MEDS: ASPIR LOW (ENTERIC COATED) 81 MG PO (13:04)
--- NOTE | 2024-05-14 13:55 | W.PN.HOSP.TC ---
Today's Communication/Plan
-
CW ABX
Chest tube today
Assessment / Plan
Assessment / Plan
Community-acquired pneumonia involving the right lung and complicated by moderate right pleural effusion. Patient without any underlying lung disease but I do see a CT in 2020 showed right lower lobe pulmonary nodules. He does not remember getting
a follow-up CAT scan. But based on the history of 2 weeks of symptoms and fevers concerned more about infectious pneumonia. Immunocompetent patient.
No ongoing fevers, significant elevation close leukemoid reaction with regards to white count, fluid pH 6.94, and exudative pleural fluid.
only 120 mL of fluid came out with the initial thoracentesis. Post tomosynthesis chest x-ray still shows significant pleural effusion.
Would benefit chest 2. Consulted IR.
cw empirical abx per ID. Neg blood cultures so far; Legionella Ag neg .
Pulmonary following.
cw antitussives.
Chest CT noted
Leukocytosis - significant elevation with thrombocytosis - no prior hx of myeloproliferative disorder. Treat pneumonia and follow white count. Improving.
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
Full code
DW at bedside
DW RN
NPO for Chest tube today.
Total time spent on today's encounter was 52 minutes which included time spent in counseling the patient/family regarding diagnosis and treatment plan as listed above, goals of care, and symptom management. Case was discussed with nursing staff,
specialists, and care coordinators/case management. All labs and imaging personally reviewed by me. Remainder the time spent in detailed review of previous records, lab data, imaging, and other medical provider documentation.
Anticipated Discharge: > 48 hours
Subjective/Interval History
-
Date of Service: May 14, 2024
Feeling improved.
Denies shortness of breath or chest pain.
Denies any fevers.
Objective Data
-
Labs:
Laboratory Results
05/14/24
07:35
WBC 32.7 H
Hgb 10.3 L
Hct 29.9 L
Plt Count 739 H
Sodium 135
Potassium 3.7
Chloride 97 L
Carbon Dioxide 28
BUN 24 H
Creatinine 0.8
Glucose 85
Calcium 7.9 L
Vital Signs:
Vital Signs
Temp Pulse Resp BP Pulse Ox
98.4 F 72 22 132/68 93
05/14/24 09:42 05/14/24 09:52 05/14/24 07:22 05/14/24 09:52 05/14/24 09:42
I&O
05/13/24 05/14/24 05/15/24
06:59 06:59 06:59
Intake Total 240 / 240 1200 / 1200
Output Total 150 / 150
Balance 90 / 90 1200 / 1200
Review of Systems
-
Abdomen/GI: Denies Abdominal Pain, Nausea or Vomiting
Neuro: Denies Dizzy
Physical Exam
-
General: No Apparent Distress
HEENT: Moist Mucous Membranes
Respiratory: Non Labored Respirations and Decreased Breath Sounds (rt base); Negative Accessory Resp Muscle Use
Cardiac: Regular Rhythm and S1/S2
GI: Soft
Neuro: AO x 3
Psych: Calm
Data Reviewed
-
Labs: Labs Reviewed by me
--- NOTE | 2024-05-14 15:21 | W.PN.UPDATE ---
Update Note
Progress Note Update
Procedure:
- US/fluoro guided R chest tube placement. 12F
- US images showed densely loculated effusion. Cloudy yellow aspirate obtained.
- Pt tolerate well. Chest tube orders placed
- Will discuss with pulm moving forward with pleural lysis this evening.
--- NOTE | 2024-05-14 16:25 | PTCARENOTE ---
Received Pt from IR with CT. CT intact. VSS are stable. Denies any SOB or pain at the insertion site.
[2024-05-14] MEDS: NEURONTIN 100 MG PO (17:55)
[2024-05-14] MEDS: ATIVAN 1 MG PO (17:55)
[2024-05-14] MEDS: LOVENOX 40 MG SC (18:00)
[2024-05-14] MEDS: MOTRIN 400 MG PO (19:57)
[2024-05-14] MEDS: MELATONIN 5 MG PO (21:18)
[2024-05-15] MEDS: STERILE WATER FOR INJECTION 10 ML IV ×4 (00:50→17:51)
[2024-05-15] MEDS: MAXIPIME 1000 MG IV ×4 (00:50→17:50)
[2024-05-15 03:30] VITALS: BP 144/75
[2024-05-15 06:08] VITALS: BMI 19.9
[2024-05-15 07:30] VITALS: BP 138/82
[2024-05-15 08:45] LABS: Hematocrit 33.3 % (39.0-52.0); Hemoglobin 11.6 g/dL (13.0-18.0); Mean Corp Hgb Conc. 34.8 g/dL (33.0-37.0); Mean Corpuscular Hgb 30.2 pg (27.0-31.0); Mean Corpuscular Volume 86.7 fL (80.0-94.0); Mean Platelet Volume 9.2 fL (7.4-10.4); Platelet Count 800 10^3/uL (130-400); Red Blood Cell Count 3.84 10^6/uL (4.70-6.10); Red Cell Dist. Width 13.4 % (11.5-14.5); White Blood Cell Count 25.6 10^3/uL (4.8-10.8)
[2024-05-15] MEDS: CARDURA 1 MG PO (09:15)
[2024-05-15] MEDS: VIBRAMYCIN 100 MG PO ×2 (09:15→21:37)
[2024-05-15] MEDS: MUCINEX 600 MG PO ×2 (09:15→21:37)
[2024-05-15] MEDS: VIMPAT 100 MG PO ×2 (09:15→21:36)
[2024-05-15 11:25] VITALS: BP 136/72
--- NOTE | 2024-05-15 11:52 | W.PN.PUL3 ---
Today's Communication / Plan
-
Cont. ABX
Follow chest tube output
Follow clx
CXR in AM
Assessment
-
Severe large right lower lobe pneumonia with complicated parapneumonic effusion-cannot rule out empyema
Chest tube placed -05/14/2024
s.p - TPA/DORnase
Leukocytosis/Fever
Cannot rule out aspiration event as patient has poor dentition and swallowing dysfunction that is chronic.
Conditions present prior admission:
History of CVA
History of TBI
History of seizure disorder.
Assessment and plan:
Imaging reviewed, CT of the chest with right lower lobe consolidation with moderate pleural effusion-rule out empyema versus complicated parapneumonic effusion.
Cannot rule out underlying lung nodule or mass, Will need radiographic follow upl
Aspiration a possibility despite normal bedside speech evaluation.
Continue with aspiration precaution
-
Broad-spectrum antibiotics: Cefepime/doxycycline-follow cultures and will adjust antibiotics as necessary.
Infectious disease consulted, correspondence reviewed.
Fevere and WBC improving.
Follow cultures
Secretion clearance interventions will continue
Thoracentesis performed 05/13/2024: Exudative. pH<7, pH 7.94, total protein 3.7, LDH 1252.
s/p chest tube placement 05/14/2024-Thrombolysis/dornase alpha -y. 1700 cc output.
So far pleural fluid negative
Sputum culture with normal respiratory mic
CXR today reviewed, almost complete resolution of infiltrate.
Cont. to follow output, hopefully can DC in 24hr if improved.
Repeat CXR in AM.
-
Will continue to follow
-
Dr. García updated patient and at the bedside on 05/13/2024 and 05/14/2024.
Subjective Data
-
Date of Service:
Date of Service: May 15, 2024
Chief Complaint: Pulmonary Follow Up (Pneumonia with parapneumonic effusion)
Subjective:
Feels better.
Chest tube in place
Denies significant chest pain.
Review of Systems
General: Fever (n)
Cardiopulmonary: Dyspnea (improved)
GI: Abdominal Pain (n) and Nausea (n)
Neuro: Headache (n)
Objective Data
Data Reviewed
Vital Signs / I&O / Oxygen:
Vital Signs
Temp Pulse Resp BP Pulse Ox
97.4 F 78 16 138/82 95
05/15/24 07:30 05/15/24 09:15 05/15/24 07:30 05/15/24 09:15 05/15/24 07:30
Intake and Output
05/14/24 05/15/24 05/16/24
06:59 06:59 06:59
Intake Total 1200 / 1200 790 / 790
Output Total 2525 / 2525
Balance 1200 / 1200 -1735 / -1735
SaO2 95
Physical Exam
General: Comfortable
HEENT: Normocephalic
Cardiovascular: S1-S2
Respiratory: Wheeze (n) and Other (Right-sided crackles/decreased breath sounds at bases)
GI: Soft and Non Distended
Neurology: Awake
Labs/Micro/Reports
Lab Data
05/15/24 07:55
05/14/24 07:35
Microbiology
05/13/24 20:52 Nose MRSA Screen - Final
No Methicillin Resistant Staphylococcus aureus isolated.
05/12/24 17:01 Blood/Venous Blood Culture - Preliminary
No Growth in 48 hours- Final report to follow
05/12/24 17:01 Blood/Venous Blood Culture - Preliminary
No Growth in 48 hours- Final report to follow
05/13/24 11:58 Pleural Fluid Body Fluid Culture - Preliminary
No Growth After 18-24 Hours
05/13/24 11:58 Pleural Fluid Gram Stain - Preliminary
05/13/24 07:41 Sputum Respiratory Culture - Preliminary
Usual Respiratory Mic
05/13/24 07:41 Sputum Gram Stain - Preliminary
05/13/24 05:32 Urine Legionella Urinary Antigen - Final
Negative for Legionella pneumophila Serogroup 1 antigen.
A negative result does not rule out the possiblity of
Legionella infection due to other serogroups or species of
Legionella. Clinical correlation is recommended.
05/12/24 15:36 Nasal Swab Influenza Types A & B (KRISTYN) - Final
Negative for Influenza A & B, NAAT
Negative results must be combined with clinical observations
and patient history.
Nucleic Acid Amplification test (NAAT)performed on the
[employer] platform.
[2024-05-15] MEDS: PROTONIX 40 MG PO (13:06)
[2024-05-15] MEDS: ENTOCORT EC 3 MG PO (13:06)
[2024-05-15] MEDS: ASPIR LOW (ENTERIC COATED) 81 MG PO (13:06)
[2024-05-15] MEDS: VITAMIN B-12 1000 MCG PO (13:06)
--- NOTE | 2024-05-15 14:16 | W.PN.HOSP.TC ---
Today's Communication/Plan
-
CW CT
CW abx
Assessment / Plan
Assessment / Plan
Community-acquired pneumonia involving the right lung and complicated by empyema. S/P chest tube placement and Intra pleural tPA with significant output and improvement of the pleural effusion. So far culture from the fluid is negative. Cytology
pending.
cw empirical abx per ID. Neg blood cultures so far; Legionella Ag neg .
Pulmonary following.
cw antitussives.
Chest CT noted
Leukocytosis - significant elevation with thrombocytosis - no prior hx of myeloproliferative disorder. Treat pneumonia and follow white count. Improving.
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
Full code
DW at bedside
DW RN
.
Anticipated Discharge: 24 - 48 hours
Subjective/Interval History
-
Date of Service: May 15, 2024
Feeling much better. Chest tube in place.
Denies any shortness of breath at rest. No fever.
Objective Data
-
Labs:
Laboratory Results
05/15/24
07:55
WBC 25.6 H
Hgb 11.6 L
Hct 33.3 L
Plt Count 800 H
Vital Signs:
Vital Signs
Temp Pulse Resp BP Pulse Ox
97.4 F 78 16 138/82 95
05/15/24 07:30 05/15/24 09:15 05/15/24 07:30 05/15/24 09:15 05/15/24 07:30
I&O
05/14/24 05/15/24 05/16/24
06:59 06:59 06:59
Intake Total 1200 / 1200 790 / 790
Output Total 2525 / 2525
Balance 1200 / 1200 -1735 / -1735
Review of Systems
-
Constitutional: Denies Fever
Cardiac: Denies Chest Pain
Abdomen/GI: Denies Abdominal Pain, Nausea or Vomiting
Neuro: Denies Dizzy
Physical Exam
-
General: No Apparent Distress
HEENT: Moist Mucous Membranes
Respiratory: Clear to Auscultation and Non Labored Respirations; Negative Wheezes or Accessory Resp Muscle Use
Cardiac: Regular Rhythm and S1/S2
Neuro: AO x 3
Data Reviewed
-
Labs: Labs Reviewed by me
--- NOTE | 2024-05-15 15:28 | W.PN.ID1 ---
Date of Service
Date of Service: May 15, 2024
Today's Communication
Continue antibiotics.
Assessment / Plan
Right lower lobe pneumonia
Pleural effusion versus empyema.
Marked leukocytosis; possible leukemoid reaction
Anemia
Thrombocytosis
CVA
HTN
Seizure disorder
Hx TBI
Recommendations:
Continue with empiric cefepime (d#4) and doxycycline (d#4) for the present.
Sputum culture and pleural fluid culture are currently pending.
Legionella urinary antigen negative
Follow white count and temperature curve. White count noted to be improved.
MRSA PCR negative.
����������������������������������������������������������
Chief Complaint
-: Pneumonia (Suspected empyema)
Subjective / Review of Systems
Patient seen and examined. Overall feels improved. Little cough.
Review of Systems: No Fever and No Chills
Vital Signs / Physical Exam
Vital Signs
Vital Signs
Temp Pulse Resp BP Pulse Ox
97.4 F 78 16 138/82 95
05/15/24 07:30 05/15/24 09:15 05/15/24 07:30 05/15/24 09:15 05/15/24 07:30
Physical Exam
Constitutional: No Acute Distress, Comfortable and Non-toxic
Eyes: Sclera Anicteric
Cardiovascular: S1/S2; Negative S3/S4
Pulmonary: Non Labored and Other (Decreased breath sounds right side. Right chest tube in place.)
Gastrointestinal: Soft, Non Tender and Non Distended
Neurological: Awake and Alert
Psychological: Confused
Objective Data
Lab Data
Lab Results
05/15/24 07:55
05/14/24 07:35
Estimated Creat Clear 67 ml/min 05/14/24 07:35
Lactic Acid 1.9 mmol/L (0.7-2.0) 05/12/24 17:01
Total Bilirubin 0.7 mg/dl (0.2-1.3) 05/12/24 15:36
AST 33 U/L (17-59) 05/12/24 15:36
ALT 37 U/L (0-50) 05/12/24 15:36
Alkaline Phosphatase 114 U/L (38-126) 05/12/24 15:36
Most recent labs reviewed.
Micro Results:
05/13/24 11:58 Body Fluid Culture - Preliminary
Pleural Fluid No Growth After 48 Hours
Gram Stain - Preliminary
05/13/24 07:41 Respiratory Culture - Final
Sputum Usual Respiratory Noemi
Gram Stain - Final
05/13/24 20:52 MRSA Screen - Final
Nose No Methicillin Resistant Staphylococcus aureus isolated.
05/12/24 17:01 Blood Culture - Preliminary
Blood/Venous No Growth in 48 hours- Final report to follow
05/12/24 17:01 Blood Culture - Preliminary
Blood/Venous No Growth in 48 hours- Final report to follow
05/13/24 05:32 Legionella Urinary Antigen - Final
Urine Negative for Legionella pneumophila Serogroup 1 antigen.
A negative result does not rule out the possiblity of
Legionella infection due to other serogroups or species of
Legionella. Clinical correlation is recommended.
05/12/24 15:36 Influenza Types A & B (KRISTYN) - Final
Nasal Swab Negative for Influenza A & B, NAAT
Negative results must be combined with clinical observations
and patient history.
Nucleic Acid Amplification test (NAAT)performed on the
[employer] platform.
Imaging:
05/13/2024 CXR (portable): Persistent moderate loculated right-sided pleural effusion with adjacent atelectasis. No visible pneumothorax.
05/12/2024 CT chest with contrast: Moderate to large lobulated right pleural effusion, possibly partially loculated, new in the interval since the comparison CT of 2020. Accompanying somewhat rounded/oblong shaped area of heterogeneous slight
decreased attenuation in the right lower lobe measuring approximately 5 cm. Differential diagnostic possibilities include infectious process (such as pneumonia) or mass/tumor. Please see full dictation for additional detail. Film personally
reviewed.
[2024-05-15 15:33] VITALS: BP 147/74
[2024-05-15] MEDS: BENADRYL 25 MG PO (16:13)
[2024-05-15] MEDS: ATIVAN 1 MG PO (17:44)
[2024-05-15] MEDS: LOVENOX 40 MG SC (17:45)
[2024-05-15] MEDS: NEURONTIN 100 MG PO (17:45)
[2024-05-15 19:35] VITALS: BP 102/60
[2024-05-15] MEDS: MELATONIN 5 MG PO (21:37)
[2024-05-15 23:00] VITALS: BP 134/66
[2024-05-16] MEDS: STERILE WATER FOR INJECTION 10 ML IV ×5 (00:33→22:58)
[2024-05-16] MEDS: MAXIPIME 1000 MG IV ×4 (00:33→18:19)
[2024-05-16 07:08] VITALS: BMI 18.9
[2024-05-16 07:50] VITALS: BP 162/82
[2024-05-16 08:52] VITALS: BP 162/82
--- NOTE | 2024-05-16 09:50 | W.PN.ID1 ---
Date of Service
Date of Service: May 16, 2024
Today's Communication
Continue antibiotics.
Assessment / Plan
Right lower lobe pneumonia
Pleural effusion vs. empyema
- cultures negative thus far
Marked leukocytosis
- trending down
Anemia
Thrombocytosis
- suspect reactive
CVA
HTN
Seizure disorder
Hx TBI
Recommendations:
Continue with empiric cefepime (d#5) and doxycycline (d#5)
Sputum culture and pleural fluid culture are currently pending but NGTD
Legionella urinary antigen negative
Follow white count and temperature curve. Improvement in leukocytosis encouraging.
����������������������������������������������������������
Chief Complaint
-: Pneumonia (Suspected empyema)
Subjective / Review of Systems
Review of Systems: No Fever, No Chills and No Cough
Vital Signs / Physical Exam
Vital Signs
Vital Signs
Temp Pulse Resp BP Pulse Ox
98.6 F 67 16 162/82 97
05/16/24 07:50 05/16/24 07:50 05/16/24 07:50 05/16/24 07:50 05/16/24 07:50
Physical Exam
Constitutional: No Acute Distress, Comfortable and Non-toxic
Eyes: Sclera Anicteric
Cardiovascular: S1/S2; Negative S3/S4
Pulmonary: Non Labored and Other (Decreased breath sounds right side. Right chest tube in place.)
Gastrointestinal: Soft, Non Tender and Non Distended
Extremities: Negative Edema
Neurological: Awake and Alert
Objective Data
Lab Data
Lab Results
05/15/24 07:55
05/14/24 07:35
Estimated Creat Clear 67 ml/min 05/14/24 07:35
Lactic Acid 1.9 mmol/L (0.7-2.0) 05/12/24 17:01
Total Bilirubin 0.7 mg/dl (0.2-1.3) 05/12/24 15:36
AST 33 U/L (17-59) 05/12/24 15:36
ALT 37 U/L (0-50) 05/12/24 15:36
Alkaline Phosphatase 114 U/L (38-126) 05/12/24 15:36
Most recent labs reviewed.
Micro Results:
05/12/24 17:01 Blood Culture - Preliminary
Blood/Venous No Growth in 72 hours- Final report to follow
05/12/24 17:01 Blood Culture - Preliminary
Blood/Venous No Growth in 72 hours- Final report to follow
05/13/24 11:58 Body Fluid Culture - Preliminary
Pleural Fluid No Growth After 48 Hours
Gram Stain - Preliminary
05/13/24 07:41 Respiratory Culture - Final
Sputum Usual Respiratory Noemi
Gram Stain - Final
05/13/24 20:52 MRSA Screen - Final
Nose No Methicillin Resistant Staphylococcus aureus isolated.
05/13/24 05:32 Legionella Urinary Antigen - Final
Urine Negative for Legionella pneumophila Serogroup 1 antigen.
A negative result does not rule out the possiblity of
Legionella infection due to other serogroups or species of
Legionella. Clinical correlation is recommended.
05/12/24 15:36 Influenza Types A & B (KRISTYN) - Final
Nasal Swab Negative for Influenza A & B, NAAT
Negative results must be combined with clinical observations
and patient history.
Nucleic Acid Amplification test (NAAT)performed on the
[email or web address] platform.
Imaging:
05/13/2024 CXR (portable): Persistent moderate loculated right-sided pleural effusion with adjacent atelectasis. No visible pneumothorax.
05/12/2024 CT chest with contrast: Moderate to large lobulated right pleural effusion, possibly partially loculated, new in the interval since the comparison CT of 2020. Accompanying somewhat rounded/oblong shaped area of heterogeneous slight
decreased attenuation in the right lower lobe measuring approximately 5 cm. Differential diagnostic possibilities include infectious process (such as pneumonia) or mass/tumor. Please see full dictation for additional detail. Film personally
reviewed.
[2024-05-16] MEDS: VIBRAMYCIN 100 MG PO ×2 (09:51→21:10)
[2024-05-16] MEDS: MUCINEX 600 MG PO ×2 (09:51→21:11)
[2024-05-16] MEDS: VIMPAT 100 MG PO ×2 (09:51→21:10)
[2024-05-16] MEDS: CARDURA 1 MG PO (09:51)
[2024-05-16] MEDS: BENADRYL 12.5 MG IV (11:44)
--- NOTE | 2024-05-16 12:42 | W.PN.PUL3 ---
Today's Communication / Plan
-
No new events, stable on RA
Chest tube to suction s/p tpa/dornase, follow output
Repeat CXR with more infiltrate appearance and potential PTX
Will FU with CT chest and evaluate
Continue chest tube for now
Abx per team
Assessment
-
78-year-old male with past medical history significant for prior CVA, history of seizures, post TBI who came to the hospital with 2-week history of coughing, chest congestion, feeling tired and weak.
Admitted to the hospital on 05/12/2024 for further evaluation given significantly abnormal chest x-ray with right lower lobe abnormality with moderate pleural effusion.
Severe large right lower lobe pneumonia with complicated parapneumonic effusion-cannot rule out empyema
Chest tube placed -05/14/2024
s/p TPA/Dornase
Leukocytosis/Fever
Cannot rule out aspiration event as patient has poor dentition and swallowing dysfunction that is chronic.
Conditions present prior admission:
History of CVA
History of TBI
History of seizure disorder.
Plan:
Imaging reviewed, CT of the chest with right lower lobe consolidation with moderate pleural effusion-rule out empyema versus complicated parapneumonic effusion.
Cannot rule out underlying lung nodule or mass, Will need radiographic follow up
Aspiration a possibility despite normal bedside speech evaluation.
Continue with aspiration precaution
Broad-spectrum antibiotics: Cefepime/doxycycline-follow cultures and will adjust antibiotics as necessary.
Infectious disease consulted, correspondence reviewed.
Fever and WBC improving.
Follow cultures
Secretion clearance interventions will continue
Thoracentesis performed 05/13/2024: Exudative. pH<7, pH 7.94, total protein 3.7, LDH 1252--suggesting empyema
s/p chest tube placement 05/14/2024-Thrombolysis/dornase alpha -y. 1700 cc output.
So far pleural fluid negative
Sputum culture with normal respiratory mic
CXR today reviewed, almost complete resolution of infiltrate.
Repeat CXR in AM-showing interval worsening wtih possible PTX
Will obtain chest CT to eval
Dr. García updated patient and at the bedside on 05/13/2024 and 05/14/2024.
Diagnostic Data
Chest X-Ray: 05/16/24- Stable position of a right basilar chest tube. Pleural line with peripheral lucency at the apical and medial portions of the right lung suggesting development of a small pneumothorax. Small right pleural effusion. Bibasilar
atelectasis, right greater than left.
Linear interface overlying the periphery of the left lung favored to represent a skinfold in correlation with previous examinations.
The cardiomediastinal silhouette is stable. Contrast material in the transverse colon. Chronic degenerative changes of the spine.
CT Scan: 05/12/24- Moderate to large lobulated right pleural effusion, possibly partially loculated new in the interval since relative remote prior CT. Accompanying somewhat rounded/oblong-shaped area of heterogeneous slight decreased attenuation in
the right lower lobe measuring approximately 5 cm. Differential diagnostic possibilities include infectious process such as pneumonia or mass/tumor.
Approximate 2 cm slightly low attenuation left adrenal nodule, indeterminate.
Echo:
PFT's:
Reports and relevant images were personally reviewed.
Subjective Data
-
Date of Service:
Date of Service: May 16, 2024
Chief Complaint: Pulmonary Follow Up (Pneumonia with parapneumonic effusion)
Subjective:
Stable overnight, no new issues
Currently on RA
Chest tube in place
No new complaints
Objective Data
Data Reviewed
Vital Signs / I&O / Oxygen:
Vital Signs
Temp Pulse Resp BP Pulse Ox
98.6 F 67 16 162/82 97
05/16/24 07:50 05/16/24 07:50 05/16/24 07:50 05/16/24 07:50 05/16/24 07:50
Intake and Output
05/15/24 05/16/24 05/17/24
06:59 06:59 06:59
Intake Total 790 / 790 300 / 300
Output Total 2525 / 2525 350 / 350 800 / 800
Balance -1735 / -1735 -50 / -50 -800 / -800
SaO2 97
Physical Exam
General: Comfortable and Good Appetite
HEENT: Normocephalic, Anicteric and Moist Mucous Membranes
Cardiovascular: S1-S2 and Regular Rhythm
Respiratory: Wheeze (n), Crackles, Non-Labored Respirations, Chest Tube and Other (Right-sided crackles/decreased breath sounds at bases)
GI: Soft, Non Distended and Non Tender
Neurology: Awake, Alert, Oriented and No Motor Deficits
Skin: Warm, Dry and Good Color
Labs/Micro/Reports
Lab Data
05/15/24 07:55
05/14/24 07:35
Microbiology
05/12/24 17:01 Blood/Venous Blood Culture - Preliminary
No Growth in 72 hours- Final report to follow
05/12/24 17:01 Blood/Venous Blood Culture - Preliminary
No Growth in 72 hours- Final report to follow
05/13/24 11:58 Pleural Fluid Body Fluid Culture - Preliminary
No Growth After 48 Hours
05/13/24 11:58 Pleural Fluid Gram Stain - Preliminary
05/13/24 07:41 Sputum Respiratory Culture - Final
Usual Respiratory Mic
05/13/24 07:41 Sputum Gram Stain - Final
05/13/24 20:52 Nose MRSA Screen - Final
No Methicillin Resistant Staphylococcus aureus isolated.
[2024-05-16] MEDS: PROTONIX 40 MG PO (13:48)
[2024-05-16] MEDS: VITAMIN B-12 1000 MCG PO (13:48)
[2024-05-16] MEDS: ENTOCORT EC 3 MG PO (13:48)
[2024-05-16] MEDS: ASPIR LOW (ENTERIC COATED) 81 MG PO (13:48)
--- NOTE | 2024-05-16 15:15 | W.PN.HOSP.TC ---
Today's Communication/Plan
-
cw abx
follow CT output
Assessment / Plan
Assessment / Plan
Community-acquired pneumonia involving the right lung and complicated by empyema. S/P chest tube placement and Intra pleural tPA with significant output and improvement of the pleural effusion. So far culture from the fluid is negative. Cytology
pending.
Decreasing CT output. CW CT per pulm.
cw empirical abx per ID. Neg blood cultures so far; Legionella Ag neg .
Pulmonary following.
cw antitussives.
Chest CT noted
Leukocytosis - significant elevation with thrombocytosis - no prior hx of myeloproliferative disorder. Treat pneumonia and follow white count. Improving.
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
Full code
DW at bedside today
DW RN
.
Anticipated Discharge: 24 - 48 hours
Subjective/Interval History
-
Date of Service: May 16, 2024
Breathing is okay. No chest pain. Tolerating diet.
Complains of itchy back pain ever since hospitalization. There is a faint rash noted by staff. Denies any rash in the limbs. Prior coming to the hospital he had some itchy rash to the anterior chest area. Denies any allergic reaction to
antibiotics in the past. Denies any tongue swelling. No tingle or numbness of the lips.
Objective Data
-
Vital Signs:
Vital Signs
Temp Pulse Resp BP Pulse Ox
98.6 F 67 16 162/82 97
05/16/24 07:50 05/16/24 07:50 05/16/24 07:50 05/16/24 07:50 05/16/24 07:50
I&O
05/15/24 05/16/24 05/17/24
06:59 06:59 06:59
Intake Total 790 / 790 300 / 300
Output Total 2525 / 2525 350 / 350 800 / 800
Balance -1735 / -1735 -50 / -50 -800 / -800
Review of Systems
-
Abdomen/GI: Denies Abdominal Pain, Nausea or Vomiting
Neuro: Denies Dizzy
Physical Exam
-
General: Comfortable
Respiratory: Clear to Auscultation and Non Labored Respirations; Negative Accessory Resp Muscle Use
Cardiac: Regular Rhythm and S1/S2; Negative Tachycardic
GI: Soft
Skin: Rash (geovanni macular localized to back - unclear if allergic dermatitis)
Neuro: AO x 3
Psych: Calm
Data Reviewed
-
Labs: Labs Reviewed by me
[2024-05-16 15:35] VITALS: BP 140/60
[2024-05-16] MEDS: ATIVAN 1 MG PO (18:18)
[2024-05-16] MEDS: LOVENOX 40 MG SC (18:18)
[2024-05-16] MEDS: NEURONTIN 100 MG PO (18:19)
[2024-05-16] MEDS: BENADRYL 25 MG PO (18:24)
[2024-05-16] MEDS: MELATONIN 5 MG PO (21:10)
[2024-05-16] MEDS: MERREM 500 MG IV (22:58)
[2024-05-16 23:30] VITALS: BP 172/83
[2024-05-17] MEDS: STERILE WATER FOR INJECTION 10 ML IV ×4 (04:40→22:32)
[2024-05-17] MEDS: MERREM 500 MG IV ×4 (04:40→22:31)
[2024-05-17 06:08] VITALS: BMI 18.8
[2024-05-17 07:00] VITALS: BP 143/74
[2024-05-17 07:23] LABS: Hematocrit 32.6 % (39.0-52.0); Hemoglobin 11.4 g/dL (13.0-18.0); Mean Corpuscular Volume 88.6 fL (80.0-94.0); Mean Platelet Volume 8.6 fL (7.4-10.4); Platelet Count 789 10^3/uL (130-400); Red Blood Cell Count 3.68 10^6/uL (4.70-6.10); Red Cell Dist. Width 13.2 % (11.5-14.5); White Blood Cell Count 21.9 10^3/uL (4.8-10.8)
[2024-05-17 07:24] LABS: Blood Urea Nitrogen 15 mg/dl (9-20); Carbon Dioxide 31 mmol/L (22-30); Chloride 99 mmol/L (98-107); Estimated Creatinine Clearance 65 ml/min; Glucose 96 mg/dl (70-99); Potassium 4.5 mmol/L (3.5-5.1); Sodium 139 mmol/L (135-145); eGFR > 60.00
[2024-05-17] MEDS: CARDURA 1 MG PO (09:04)
[2024-05-17] MEDS: MUCINEX 600 MG PO ×2 (09:05→20:01)
[2024-05-17] MEDS: VIBRAMYCIN 100 MG PO ×2 (09:05→20:02)
[2024-05-17] MEDS: VIMPAT 100 MG PO ×2 (09:05→20:02)
--- NOTE | 2024-05-17 11:53 | W.PN.ID1 ---
Date of Service
Date of Service: May 17, 2024
Today's Communication
Continue current antibiotics.
Assessment / Plan
Right lower lobe pneumonia
Pleural effusion vs. empyema
- cultures negative thus far
Marked leukocytosis
- trending down
Anemia
Thrombocytosis
- suspect reactive
Reported rash.
- Not clear whether this is secondary to antibiotics, or if this is a contact of rash (would favor the latter)
CVA
HTN
Seizure disorder
Hx TBI
Recommendations:
Continue with empiric meropenem (d#1; d#6 abx) and doxycycline (d#6)
Sputum culture and pleural fluid culture are currently pending but NGTD
Legionella urinary antigen negative
Follow white count and temperature curve. Improvement in leukocytosis encouraging.
����������������������������������������������������������
Chief Complaint
-: Pneumonia (Suspected empyema)
Subjective / Review of Systems
Patient seen and examined. Received call from nurse last evening as patient reported rash on chest and back. Antibiotics transitioned from cefepime to meropenem.
Today, he notes some ongoing pruritus on the back, but appears to be somewhat intermittent.
Review of Systems: No Fever and No Chills
Vital Signs / Physical Exam
Vital Signs
Vital Signs
Temp Pulse Resp BP Pulse Ox
99.4 F 80 18 143/74 96
05/17/24 07:00 05/17/24 07:00 05/17/24 07:00 05/17/24 07:00 05/17/24 07:00
Physical Exam
Constitutional: No Acute Distress, Comfortable and Non-toxic
Eyes: Sclera Anicteric
Cardiovascular: S1/S2; Negative S3/S4
Pulmonary: Non Labored and Other (Decreased breath sounds right side. Right chest tube in place.)
Gastrointestinal: Soft, Non Tender and Non Distended
Extremities: Negative Edema
Skin: Rash (Minimal rash on back. Not especially erythematous or confluent.)
Neurological: Awake and Alert
Objective Data
Lab Data
Lab Results
05/17/24 06:50
05/17/24 06:50
Estimated Creat Clear 65 ml/min 05/17/24 06:50
Lactic Acid 1.9 mmol/L (0.7-2.0) 05/12/24 17:01
Total Bilirubin 0.7 mg/dl (0.2-1.3) 05/12/24 15:36
AST 33 U/L (17-59) 05/12/24 15:36
ALT 37 U/L (0-50) 05/12/24 15:36
Alkaline Phosphatase 114 U/L (38-126) 05/12/24 15:36
Most recent labs reviewed.
Micro Results:
05/12/24 17:01 Blood Culture - Preliminary
Blood/Venous No Growth in 4 days- Final report to follow
05/12/24 17:01 Blood Culture - Preliminary
Blood/Venous No Growth in 4 days- Final report to follow
05/13/24 11:58 Body Fluid Culture - Final
Pleural Fluid No Growth After 72 Hours
Gram Stain - Final
05/13/24 07:41 Respiratory Culture - Final
Sputum Usual Respiratory Noemi
Gram Stain - Final
05/13/24 20:52 MRSA Screen - Final
Nose No Methicillin Resistant Staphylococcus aureus isolated.
05/13/24 05:32 Legionella Urinary Antigen - Final
Urine Negative for Legionella pneumophila Serogroup 1 antigen.
A negative result does not rule out the possiblity of
Legionella infection due to other serogroups or species of
Legionella. Clinical correlation is recommended.
05/12/24 15:36 Influenza Types A & B (KRISTYN) - Final
Nasal Swab Negative for Influenza A & B, NAAT
Negative results must be combined with clinical observations
and patient history.
Nucleic Acid Amplification test (NAAT)performed on the
[employer] platform.
Imaging:
05/13/2024 CXR (portable): Persistent moderate loculated right-sided pleural effusion with adjacent atelectasis. No visible pneumothorax.
05/12/2024 CT chest with contrast: Moderate to large lobulated right pleural effusion, possibly partially loculated, new in the interval since the comparison CT of 2020. Accompanying somewhat rounded/oblong shaped area of heterogeneous slight
decreased attenuation in the right lower lobe measuring approximately 5 cm. Differential diagnostic possibilities include infectious process (such as pneumonia) or mass/tumor. Please see full dictation for additional detail. Film personally
reviewed.
--- NOTE | 2024-05-17 13:40 | W.PN.PUL3 ---
Today's Communication / Plan
-
CT reviewed showing improvement but with persistent RLL infiltrate
Overall output from chest tube otherwise remains low, ptx very small
Repeat CXR in AM, based on this and further low output, can consider discontinuation of tube
Reviewed this with patient and
Remains on IV abx
Assessment
-
78-year-old male with past medical history significant for prior CVA, history of seizures, post TBI who came to the hospital with 2-week history of coughing, chest congestion, feeling tired and weak.
Admitted to the hospital on 05/12/2024 for further evaluation given significantly abnormal chest x-ray with right lower lobe abnormality with moderate pleural effusion.
Severe large right lower lobe pneumonia with complicated parapneumonic effusion-cannot rule out empyema
Chest tube placed -05/14/2024
s/p TPA/Dornase
Leukocytosis/Fever
Cannot rule out aspiration event as patient has poor dentition and swallowing dysfunction that is chronic.
Conditions present prior admission:
History of CVA
History of TBI
History of seizure disorder.
Plan:
Imaging reviewed, CT of the chest with right lower lobe consolidation with moderate pleural effusion-rule out empyema versus complicated parapneumonic effusion.
Cannot rule out underlying lung nodule or mass
Repeat CT chest obtained with persistent RLL consolidation, but otherwise improved appearance compared to AM CXR
Path still pending
Aspiration a possibility despite normal bedside speech evaluation.
VSE 05/13- No aspiration, however one instance of trace upper laryngeal penetration of thin liquid by consecutive straw sips. Mild pharyngeal stasis mainly within pyriform sinuses increases risk for chronic trace penetration/aspiration.
Speech following
Continue with aspiration precaution
Broad-spectrum antibiotics: Cefepime/doxycycline-follow cultures and will adjust antibiotics as necessary.
Infectious disease consulted, correspondence reviewed.
Fever and WBC improving.
Follow cultures
Secretion clearance interventions will continue
Thoracentesis performed 05/13/2024: Exudative. pH<7, pH 7.94, total protein 3.7, LDH 1252--suggesting empyema
s/p chest tube placement 05/14/2024-Thrombolysis/dornase alpha -1700 cc output.
So far pleural fluid negative, path still pending
Sputum culture with normal respiratory mic
If no further drainage, can likely discontinue catheter
Total output <100 in past 48 hours
CXR today reviewed, almost complete resolution of infiltrate.
Repeat CXR in AM-showing interval worsening with possible PTX
Executive [employer] film/CT obtained later in the day seemed improved
Dr. García updated patient and at the bedside on 05/13/2024 and 05/14/2024.
I updated patient and today at bedside.
Diagnostic Data
Chest X-Ray: 05/16/24- Stable position of a right basilar chest tube. Pleural line with peripheral lucency at the apical and medial portions of the right lung suggesting development of a small pneumothorax. Small right pleural effusion. Bibasilar
atelectasis, right greater than left.
Linear interface overlying the periphery of the left lung favored to represent a skinfold in correlation with previous examinations.
The cardiomediastinal silhouette is stable. Contrast material in the transverse colon. Chronic degenerative changes of the spine.
CT Scan: 05/12/24- Moderate to large lobulated right pleural effusion, possibly partially loculated new in the interval since relative remote prior CT. Accompanying somewhat rounded/oblong-shaped area of heterogeneous slight decreased attenuation in
the right lower lobe measuring approximately 5 cm. Differential diagnostic possibilities include infectious process such as pneumonia or mass/tumor.
Approximate 2 cm slightly low attenuation left adrenal nodule, indeterminate.
Echo:
PFT's:
Reports and relevant images were personally reviewed.
-----
Total time spent on this encounter __51__ includes review of history, physical exam, medications, laboratory data, personal review of imaging, extensive review of outpatient records, discussion with care team and respiratory therapy.
Subjective Data
-
Date of Service:
Date of Service: May 17, 2024
Chief Complaint: Pulmonary Follow Up (Pneumonia with parapneumonic effusion)
Subjective:
Stable on RA, no new complaints
chest tube with minimal output
at bedside
Objective Data
Data Reviewed
Vital Signs / I&O / Oxygen:
Vital Signs
Temp Pulse Resp BP Pulse Ox
99.4 F 80 18 143/74 96
05/17/24 07:00 05/17/24 07:00 05/17/24 07:00 05/17/24 07:00 05/17/24 07:00
Intake and Output
05/16/24 05/17/24 05/18/24
06:59 06:59 06:59
Intake Total 300 / 300 60 / 60
Output Total 350 / 350 2310 / 2310
Balance -50 / -50 -2250 / -2250
SaO2 96
Physical Exam
General: Comfortable and Good Appetite
HEENT: Normocephalic, Anicteric and Moist Mucous Membranes
Cardiovascular: S1-S2 and Regular Rhythm
Respiratory: Wheeze (n), Crackles, Non-Labored Respirations, Chest Tube and Other (Right-sided crackles/decreased breath sounds at bases)
GI: Soft, Non Distended and Non Tender
Neurology: Awake, Alert, Oriented and No Motor Deficits
Skin: Warm, Dry and Good Color
Labs/Micro/Reports
Lab Data
05/17/24 06:50
05/17/24 06:50
Microbiology
05/12/24 17:01 Blood/Venous Blood Culture - Preliminary
No Growth in 4 days- Final report to follow
05/12/24 17:01 Blood/Venous Blood Culture - Preliminary
No Growth in 4 days- Final report to follow
05/13/24 11:58 Pleural Fluid Body Fluid Culture - Final
No Growth After 72 Hours
05/13/24 11:58 Pleural Fluid Gram Stain - Final
05/13/24 07:41 Sputum Respiratory Culture - Final
Usual Respiratory Mic
05/13/24 07:41 Sputum Gram Stain - Final
05/13/24 20:52 Nose MRSA Screen - Final
No Methicillin Resistant Staphylococcus aureus isolated.
[2024-05-17] MEDS: PROTONIX 40 MG PO (13:51)
[2024-05-17] MEDS: ENTOCORT EC 3 MG PO (13:51)
[2024-05-17] MEDS: VITAMIN B-12 1000 MCG PO (13:51)
[2024-05-17] MEDS: ASPIR LOW (ENTERIC COATED) 81 MG PO (13:51)
--- NOTE | 2024-05-17 14:40 | W.PN.HOSP.TC ---
Today's Communication/Plan
-
Continue with the chest tube
Antibiotics per ID
Follow the rash while cefepime is discontinued.
Assessment / Plan
Assessment / Plan
Community-acquired pneumonia involving the right lung and complicated by empyema. S/P chest tube placement and Intra pleural tPA with significant output and improvement of the pleural effusion. So far culture from the fluid is negative. Cytology
pending.
Decreasing CT output. CW CT per pulm.
cw empirical abx per ID. Neg blood cultures so far; Legionella Ag neg .
Pulmonary following.
cw antitussives.
Chest CT noted
Leukocytosis - significant elevation with thrombocytosis - no prior hx of myeloproliferative disorder. Treat pneumonia and follow white count. Improving.
Skin rash - less prominent in back now . unclear if related abx . Cefepime switched to Meropenem.
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
Full code
DW at bedside today
DW RN
.
Anticipated Discharge: > 48 hours
Subjective/Interval History
-
Date of Service: May 17, 2024
He has itchiness in his back today.
denies SOB.
Objective Data
-
Labs:
Laboratory Results
05/17/24
06:50
WBC 21.9 H
Hgb 11.4 L
Hct 32.6 L
Plt Count 789 H
Sodium 139
Potassium 4.5
Chloride 99
Carbon Dioxide 31 H
BUN 15
Creatinine 0.8
Glucose 96
Calcium 8.0 L
Vital Signs:
Vital Signs
Temp Pulse Resp BP Pulse Ox
99.4 F 80 18 143/74 96
05/17/24 07:00 05/17/24 07:00 05/17/24 07:00 05/17/24 07:00 05/17/24 07:00
I&O
05/16/24 05/17/24 05/18/24
06:59 06:59 06:59
Intake Total 300 / 300 60 / 60
Output Total 350 / 350 2310 / 2310
Balance -50 / -50 -2250 / -2250
Physical Exam
-
General: Comfortable
Respiratory: Clear to Auscultation (Few in left base) and Non Labored Respirations; Negative Accessory Resp Muscle Use
Cardiac: Regular Rhythm and S1/S2
GI: Soft
Skin: Rash (less prominent on back)
Neuro: AO x 3
Data Reviewed
-
Labs: Labs Reviewed by me
[2024-05-17 15:00] VITALS: BP 113/61
[2024-05-17] MEDS: BENADRYL 25 MG PO (16:54)
[2024-05-17] MEDS: ATIVAN 1 MG PO (17:18)
[2024-05-17] MEDS: NEURONTIN 100 MG PO (17:18)
[2024-05-17] MEDS: LOVENOX 40 MG SC (17:18)
[2024-05-17] MEDS: MELATONIN 5 MG PO (22:32)
[2024-05-17 23:15] VITALS: BP 148/81
[2024-05-18] MEDS: BENADRYL 25 MG PO (01:41)
[2024-05-18 04:34] VITALS: BMI 18.7
[2024-05-18] MEDS: MERREM 500 MG IV ×4 (04:40→21:32)
[2024-05-18] MEDS: STERILE WATER FOR INJECTION 10 ML IV ×4 (04:40→21:33)
[2024-05-18 08:38] VITALS: BP 132/70
[2024-05-18] MEDS: CARDURA 1 MG PO (09:04)
[2024-05-18] MEDS: VIMPAT 100 MG PO ×2 (09:04→21:31)
[2024-05-18] MEDS: VIBRAMYCIN 100 MG PO ×2 (09:04→21:31)
[2024-05-18] MEDS: MUCINEX 600 MG PO ×2 (09:05→21:31)
--- NOTE | 2024-05-18 09:30 | W.PN.HOSP.TC ---
Today's Communication/Plan
-
see bold
Assessment / Plan
Assessment / Plan
Community-acquired pneumonia involving the right lung and complicated by empyema. S/P chest tube placement and Intra pleural tPA with significant output and improvement of the pleural effusion. So far culture from the fluid is negative. Cytology
pending.
Decreasing CT output. Continue chest tube management as per pulmonology, possible removal 05/19 if output is decreased
cw empirical abx per ID. Neg blood cultures so far; Legionella Ag neg .
Pulmonary following.
cw antitussives.
Chest CT noted
Leukocytosis - significant elevation with thrombocytosis - no prior hx of myeloproliferative disorder. Treat pneumonia and follow white count. Improving.
Skin rash - less prominent in back now . unclear if related abx . Cefepime switched to Meropenem. Start triamcinolone ointment 3 times daily, continue Benadryl as needed
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
DVT prophylaxis�subcu Lovenox
Full code
Updated at bedside 05/18
Total time spent to see the patient on the floor, examine the patient, review data and lab results, discuss treatment plan with patient, nursing staff around 42 minutes.
Physical Exam
General: No acute distress
HEENT: Normocephalic, Atraumatic, EOMI, MMM
Respiratory: Diminished breath sounds at the right lung base
Cardiac: Normal S1/S2, Regular Rate and Rhythm
GI: Soft, Nontender, Nondistended, Normal Bowel Sounds
Extremities: No Clubbing, Cyanosis, or Edema
Neuro: Nonfocal/Grossly Intact
Psych: Calm, Cooperative
Derm: Erythematous macules scattered all over back
.
Anticipated Discharge: 24 - 48 hours
Subjective/Interval History
-
Date of Service: May 18, 2024
Patient complains of itching on his back from the rash. No chest pain, shortness of breath, or palpitations. No fever.
Objective Data
-
Vital Signs:
Vital Signs
Temp Pulse Resp BP Pulse Ox
98.4 F 69 18 132/70 95
05/18/24 08:38 05/18/24 08:38 05/18/24 08:38 05/18/24 08:38 05/18/24 08:38
I&O
05/17/24 05/18/24 05/19/24
06:59 06:59 06:59
Intake Total 60 / 60 1260 / 1260
Output Total 2310 / 2310 485 / 485
Balance -2250 / -2250 775 / 775
--- NOTE | 2024-05-18 09:47 | W.PN.PUL.V3 ---
Today's Communication / Plan
-
.
Monitor chest tube output.
Dr. Huff contacted interventional radiology.-If minimal pleural fluid 05/19/24, then chest tube likely will be removed.
Continue antibiotics.
Outpatient pulmonary follow-up
Assessment
-
78-year-old male with past medical history significant for prior CVA, history of seizures, post TBI who came to the hospital with 2-week history of coughing, chest congestion, feeling tired and weak.
Admitted to the hospital on 05/12/2024 for further evaluation given significantly abnormal chest x-ray with right lower lobe abnormality with moderate pleural effusion.
Severe large right lower lobe pneumonia with complicated parapneumonic effusion-cannot rule out empyema
Chest tube placed -05/14/2024
s/p TPA/Dornase
Leukocytosis/Fever
Cannot rule out aspiration event as patient has poor dentition and swallowing dysfunction that is chronic.
Conditions present prior admission:
History of CVA
History of TBI
History of seizure disorder.
Plan:
Respiratory status relatively stable.
Wean oxygen.
Increase activity.
CT chest 05/16/24-small right hydropneumothorax with small amount of loculated pleural fluid anteriorly, rounded atelectasis, improved posteriorly.
Chest x-ray 05/18/24-stable appearance of right-sided chest tube with slightly improved aeration of the lung bases with residual trace pleural effusion
Aspiration precautions.
Video swallow 05/13/24-no aspiration, mild pharyngeal stasis.
Speech therapy following
Thoracentesis 05/13/24-exudate, pH less than 7, total protein 3.7, LDH 1252-suggest empyema.
Chest tube placed 05/14/24 with subsequent probable lysis/DNase--1700 mL, output
Monitor chest tube output
Dr. Huff contacted interventional radiology for potential chest tube removal-we'll obtain chest x-ray 05/19/24 and if minimal pleural fluid, then chest tube likely will be removed
Chest tube with minimal drainage-less than 25 mL last 24-48 hours.
Consider discontinuing chest tube with minimal pleural fluid left.
Pleural fluid cytology 05/13/24-negative for malignant cells.
Cultures reviewed.
Sputum with usual respiratory mic.
Pleural fluid, 05/13/24-no growth.
MRSA screen negative.
Urine Legionella antigen negative.
Blood cultures negative.
Influenza negative.
Empiric antibiotics continues- finish a finite course
Infectious disease following-correspondence reviewed
DVT prophylaxis-on Lovenox..
GI prophylaxis-on pantoprazole
Eventual outpatient pulmonary follow-up
Diagnostic Data
Chest X-Ray: 05/16/24- Stable position of a right basilar chest tube. Pleural line with peripheral lucency at the apical and medial portions of the right lung suggesting development of a small pneumothorax. Small right pleural effusion. Bibasilar
atelectasis, right greater than left.
Linear interface overlying the periphery of the left lung favored to represent a skinfold in correlation with previous examinations.
The cardiomediastinal silhouette is stable. Contrast material in the transverse colon. Chronic degenerative changes of the spine.
CT Scan: 05/12/24- Moderate to large lobulated right pleural effusion, possibly partially loculated new in the interval since relative remote prior CT. Accompanying somewhat rounded/oblong-shaped area of heterogeneous slight decreased attenuation in
the right lower lobe measuring approximately 5 cm. Differential diagnostic possibilities include infectious process such as pneumonia or mass/tumor.
Approximate 2 cm slightly low attenuation left adrenal nodule, indeterminate.
Subjective Data
-
Date of Service:
Date of Service: May 18, 2024
Chief Complaint: Pulmonary Follow Up (Pneumonia with parapneumonic effusion) and Dyspnea Follow Up
Subjective:
States that he feels well, no increased shortness of breath, chest congestion, productive cough, chest pain, or abdominal pain
Review of Systems
General: Other ( per HPI)
Objective Data
Data Reviewed
Vital Signs / I&O:
Vital Signs
Temp Pulse Resp BP Pulse Ox
98.4 F 69 18 132/70 95
05/18/24 08:38 05/18/24 08:38 05/18/24 08:38 05/18/24 08:38 05/18/24 08:38
Intake and Output
05/17/24 05/18/24 05/19/24
06:59 06:59 06:59
Intake Total 60 / 60 1260 / 1260
Output Total 2310 / 2310 485 / 485
Balance -2250 / -2250 775 / 775
SaO2: 95
Physical Exam
General: Respiratory Distress (n), Comfortable and Good Appetite
HEENT: Normocephalic, Anicteric and Moist Mucous Membranes
Cardiovascular: Regular Rhythm
Respiratory: Wheeze (n), Crackles, Non-Labored Respirations, Chest Tube and Other (Right-sided crackles/decreased breath sounds at bases)
GI: Soft, Non Distended and Non Tender
Neurology: Awake, Alert and No Motor Deficits
Skin: Warm, Dry, Good Color, Cyanosis (n), Jaundice (n) and Rash (n)
Labs/Micro/Reports
Lab Data
05/17/24 06:50
05/17/24 06:50
Microbiology
05/12/24 17:01 Blood/Venous Blood Culture - Final
No Growth - Final Report
05/12/24 17:01 Blood/Venous Blood Culture - Final
No Growth - Final Report
05/13/24 11:58 Pleural Fluid Body Fluid Culture - Final
No Growth After 72 Hours
05/13/24 11:58 Pleural Fluid Gram Stain - Final
05/13/24 07:41 Sputum Respiratory Culture - Final
Usual Respiratory Mic
05/13/24 07:41 Sputum Gram Stain - Final
05/13/24 20:52 Nose MRSA Screen - Final
No Methicillin Resistant Staphylococcus aureus isolated.
--- NOTE | 2024-05-18 10:55 | CM ---
Patient seen bedside with, discussed PT recommendation of home PT. Patient unsure at this time. confirms patient has had some therapy in the past. Patient remains on medsitter. CM will continue to follow for all discharge planning needs.
Plan; home with vs home with VN.
--- NOTE | 2024-05-18 11:15 | W.PN.ID1 ---
Date of Service
Date of Service: May 18, 2024
Today's Communication
Continue antibiotics.
Assessment / Plan
Right lower lobe pneumonia
Pleural effusion vs. empyema
- cultures negative thus far
Marked leukocytosis
- trending down
Anemia
Thrombocytosis
- suspect reactive
Reported rash.
- Not clear whether this is secondary to antibiotics, or if this is a contact of rash (would favor the latter)
CVA
HTN
Seizure disorder
Hx TBI
Recommendations:
Continue with empiric meropenem (d#2; d#7 abx) and doxycycline (d#7)
Sputum culture and pleural fluid culture are currently pending but NGTD
Legionella urinary antigen negative
Follow white count and temperature curve. Improvement in leukocytosis encouraging.
Follow Pleur-evac output.
����������������������������������������������������������
Chief Complaint
-: Pneumonia (Suspected empyema)
Subjective / Review of Systems
Patient seen and examined. Overall feels well. Chest tube remains in place. Continues to note some pruritus in the back and slightly on the anterior chest.
Review of Systems: No Fever and No Chills
Vital Signs / Physical Exam
Vital Signs
Vital Signs
Temp Pulse Resp BP Pulse Ox
98.4 F 69 18 132/70 95
05/18/24 08:38 05/18/24 08:38 05/18/24 08:38 05/18/24 08:38 05/18/24 09:47
Physical Exam
Constitutional: No Acute Distress, Comfortable and Non-toxic
Eyes: Sclera Anicteric
Cardiovascular: S1/S2; Negative S3/S4
Pulmonary: Non Labored and Other (Decreased breath sounds right side. Right chest tube in place.)
Gastrointestinal: Soft, Non Tender and Non Distended
Extremities: Negative Edema
Skin: Rash (Minimal rash on back. Not especially erythematous or confluent.)
Neurological: Awake and Alert
Objective Data
Lab Data
Lab Results
05/17/24 06:50
05/17/24 06:50
Estimated Creat Clear 65 ml/min 05/17/24 06:50
Lactic Acid 1.9 mmol/L (0.7-2.0) 05/12/24 17:01
Total Bilirubin 0.7 mg/dl (0.2-1.3) 05/12/24 15:36
AST 33 U/L (17-59) 05/12/24 15:36
ALT 37 U/L (0-50) 05/12/24 15:36
Alkaline Phosphatase 114 U/L (38-126) 05/12/24 15:36
Most recent labs reviewed.
Micro Results:
05/12/24 17:01 Blood Culture - Final
Blood/Venous No Growth - Final Report
05/12/24 17:01 Blood Culture - Final
Blood/Venous No Growth - Final Report
05/13/24 11:58 Body Fluid Culture - Final
Pleural Fluid No Growth After 72 Hours
Gram Stain - Final
05/13/24 07:41 Respiratory Culture - Final
Sputum Usual Respiratory Noemi
Gram Stain - Final
05/13/24 20:52 MRSA Screen - Final
Nose No Methicillin Resistant Staphylococcus aureus isolated.
05/13/24 05:32 Legionella Urinary Antigen - Final
Urine Negative for Legionella pneumophila Serogroup 1 antigen.
A negative result does not rule out the possiblity of
Legionella infection due to other serogroups or species of
Legionella. Clinical correlation is recommended.
05/12/24 15:36 Influenza Types A & B (KRISTYN) - Final
Nasal Swab Negative for Influenza A & B, NAAT
Negative results must be combined with clinical observations
and patient history.
Nucleic Acid Amplification test (NAAT)performed on the
[employer] platform.
Imaging:
05/13/2024 CXR (portable): Persistent moderate loculated right-sided pleural effusion with adjacent atelectasis. No visible pneumothorax.
05/12/2024 CT chest with contrast: Moderate to large lobulated right pleural effusion, possibly partially loculated, new in the interval since the comparison CT of 2020. Accompanying somewhat rounded/oblong shaped area of heterogeneous slight
decreased attenuation in the right lower lobe measuring approximately 5 cm. Differential diagnostic possibilities include infectious process (such as pneumonia) or mass/tumor. Please see full dictation for additional detail. Film personally
reviewed.
[2024-05-18] MEDS: TRIAMCINOLONE 0.1% OINTMENT 1 APPLIC TOPICAL ×3 (12:33→21:33)
[2024-05-18] MEDS: ASPIR LOW (ENTERIC COATED) 81 MG PO (12:35)
[2024-05-18] MEDS: ENTOCORT EC 3 MG PO (12:35)
[2024-05-18] MEDS: PROTONIX 40 MG PO (12:35)
[2024-05-18] MEDS: VITAMIN B-12 1000 MCG PO (12:35)
[2024-05-18 15:23] VITALS: BP 109/65; PULSE 65; O2SAT 98
[2024-05-18 16:32] VITALS: BP 135/73
[2024-05-18] MEDS: NEURONTIN 100 MG PO (17:14)
[2024-05-18] MEDS: ATIVAN 1 MG PO (17:14)
[2024-05-18] MEDS: LOVENOX 40 MG SC (17:14)
[2024-05-18] MEDS: MELATONIN 5 MG PO (21:32)
[2024-05-18 22:59] VITALS: BP 149/62
[2024-05-19] MEDS: STERILE WATER FOR INJECTION 10 ML IV ×4 (04:22→22:32)
[2024-05-19] MEDS: MERREM 500 MG IV ×4 (04:22→22:32)
[2024-05-19 07:40] VITALS: BP 132/77
[2024-05-19 07:48] LABS: Hemoglobin 11.1 g/dL (13.0-18.0); Mean Corp Hgb Conc. 33.6 g/dL (33.0-37.0); Mean Corpuscular Hgb 29.7 pg (27.0-31.0); Mean Corpuscular Volume 88.2 fL (80.0-94.0); Mean Platelet Volume 8.6 fL (7.4-10.4); Platelet Count 815 10^3/uL (130-400); Red Blood Cell Count 3.74 10^6/uL (4.70-6.10); Red Cell Dist. Width 13.4 % (11.5-14.5); White Blood Cell Count 17.2 10^3/uL (4.8-10.8)
[2024-05-19] MEDS: MUCINEX 600 MG PO (08:15)
[2024-05-19] MEDS: CARDURA 1 MG PO (08:15)
[2024-05-19] MEDS: TRIAMCINOLONE 0.1% OINTMENT 1 APPLIC TOPICAL ×3 (08:15→22:31)
[2024-05-19] MEDS: VIBRAMYCIN 100 MG PO ×2 (08:16→20:02)
[2024-05-19] MEDS: VIMPAT 100 MG PO ×2 (08:16→20:03)
--- NOTE | 2024-05-19 08:52 | W.PN.HOSP.TC ---
Today's Communication/Plan
-
see bold
Assessment / Plan
Assessment / Plan
Community-acquired pneumonia involving the right lung and complicated by empyema. S/P chest tube placement and Intra pleural tPA with significant output and improvement of the pleural effusion. So far culture from the fluid is negative. Cytology
neg for malignancy.
Decreasing CT output. Continue chest tube management as per pulmonology, possible removal 05/19
Neg blood cultures so far; Legionella Ag neg
Chest CT noted
Continue meropenem and doxycycline as per ID
BMI 18.7 is not significant
Leukocytosis - significant elevation with thrombocytosis - no prior hx of myeloproliferative disorder. Treat pneumonia and follow white count. Improving.
Skin rash - less prominent in back now . unclear if related abx . Cefepime switched to Meropenem. Started triamcinolone ointment 3 times daily 05/18, continue Benadryl as needed
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
DVT prophylaxis�subcu Lovenox
Full code
Updated at bedside 05/18
Updated on phone 05/19
Total time spent to see the patient on the floor, examine the patient, review data and lab results, discuss treatment plan with patient, nursing staff around 45 minutes.
Physical Exam
General: No acute distress
HEENT: Normocephalic, Atraumatic, EOMI, MMM
Respiratory: Diminished breath sounds at the right lung base
Cardiac: Normal S1/S2, Regular Rate and Rhythm
GI: Soft, Nontender, Nondistended, Normal Bowel Sounds
Extremities: No Clubbing, Cyanosis, or Edema
Neuro: Nonfocal/Grossly Intact
Psych: Calm, Cooperative
Derm: Erythematous macules scattered all over back
.
Anticipated Discharge: Within 24 hours
Subjective/Interval History
-
Date of Service: May 19, 2024
Patient reports that the itchiness on his back from his rash is improved. He has a difficult time bringing up his sputum today. No fever, no vomiting. No shortness of breath.
Objective Data
-
Labs:
Laboratory Results
05/19/24
07:17
WBC 17.2 H
Hgb 11.1 L
Hct 33.0 L
Plt Count 815 H
Vital Signs:
Vital Signs
Temp Pulse Resp BP Pulse Ox
98.1 F 75 16 132/77 97
05/19/24 07:40 05/19/24 07:40 05/19/24 07:40 05/19/24 07:40 05/19/24 07:40
I&O
05/18/24 05/19/24 05/20/24
06:59 06:59 06:59
Intake Total 1260 / 1260 240 / 240
Output Total 495 / 495 610 / 610
Balance 765 / 765 -370 / -370
[2024-05-19] MEDS: TYLENOL 650 MG PO (09:13)
--- NOTE | 2024-05-19 10:12 | CM ---
Chart reviewed and physical therapy are recommending home with spouse will follow for possible home care services, closer to discharge.
Plan; To follow with patient progress and assist with discharge planning.
--- NOTE | 2024-05-19 10:18 | W.PN.PUL.V3 ---
Today's Communication / Plan
-
.
Minimal chest tube output.
Chest x-ray reviewed
Reviewed with interventional radiology.-If majority of fluid evacuated and minimal drainage then chest tube may be removed.
Assessment
-
78-year-old male with past medical history significant for prior CVA, history of seizures, post TBI who came to the hospital with 2-week history of coughing, chest congestion, feeling tired and weak.
Admitted to the hospital on 05/12/2024 for further evaluation given significantly abnormal chest x-ray with right lower lobe abnormality with moderate pleural effusion.
Severe large right lower lobe pneumonia with complicated parapneumonic effusion-cannot rule out empyema
Chest tube placed -05/14/2024
s/p TPA/Dornase
Leukocytosis/Fever
Cannot rule out aspiration event as patient has poor dentition and swallowing dysfunction that is chronic.
Conditions present prior admission:
History of CVA
History of TBI
History of seizure disorder.
Plan:
Respiratory status relatively stable.
Wean oxygen.
Increase activity.
CT chest 05/16/24-small right hydropneumothorax with small amount of loculated pleural fluid anteriorly, rounded atelectasis, improved posteriorly.
Chest x-ray 05/18/24-stable appearance of right-sided chest tube with slightly improved aeration of the lung bases with residual trace pleural effusion.
Chest x-ray 05/19/24-right pleural pigtail catheter present, no evidence for significant pneumothorax, small to moderate right pleural effusion
Aspiration precautions.
Video swallow 05/13/24-no aspiration, mild pharyngeal stasis.
Speech therapy following
Thoracentesis 05/13/24-exudate, pH less than 7, total protein 3.7, LDH 1252-suggest empyema.
Chest tube placed 05/14/24 with subsequent probable lysis/DNase--1700 mL, output
Monitor chest tube output
Dr. Huff contacted interventional radiology for potential chest tube removal-we'll obtain chest x-ray 05/19/24 and if minimal pleural fluid, then chest tube likely will be removed
Chest tube with minimal drainage-less than 25 mL last 24-48 hours.
Consider discontinuing chest tube with minimal pleural fluid left.
Pleural fluid cytology 05/13/24-negative for malignant cells.
Cultures reviewed.
Sputum with usual respiratory mic.
Pleural fluid, 05/13/24-no growth.
MRSA screen negative.
Urine Legionella antigen negative.
Blood cultures negative.
Influenza negative.
Empiric antibiotics continues- finish a finite course
Infectious disease following-correspondence reviewed
DVT prophylaxis-on Lovenox..
GI prophylaxis-on pantoprazole
Eventual outpatient pulmonary follow-up
Diagnostic Data
Chest X-Ray: 05/16/24- Stable position of a right basilar chest tube. Pleural line with peripheral lucency at the apical and medial portions of the right lung suggesting development of a small pneumothorax. Small right pleural effusion. Bibasilar
atelectasis, right greater than left.
Linear interface overlying the periphery of the left lung favored to represent a skinfold in correlation with previous examinations.
The cardiomediastinal silhouette is stable. Contrast material in the transverse colon. Chronic degenerative changes of the spine.
CT Scan: 05/12/24- Moderate to large lobulated right pleural effusion, possibly partially loculated new in the interval since relative remote prior CT. Accompanying somewhat rounded/oblong-shaped area of heterogeneous slight decreased attenuation in
the right lower lobe measuring approximately 5 cm. Differential diagnostic possibilities include infectious process such as pneumonia or mass/tumor.
Approximate 2 cm slightly low attenuation left adrenal nodule, indeterminate.
Subjective Data
-
Date of Service:
Date of Service: May 19, 2024
Chief Complaint: Pulmonary Follow Up (Pneumonia with parapneumonic effusion) and Dyspnea Follow Up
Subjective:
No complaints shortness of breath, chest pain, productive cough
Review of Systems
General: Other ( per HPI)
Objective Data
Data Reviewed
Vital Signs / I&O:
Vital Signs
Temp Pulse Resp BP Pulse Ox
98.1 F 75 16 132/77 97
05/19/24 07:40 05/19/24 07:40 05/19/24 07:40 05/19/24 07:40 05/19/24 07:40
Intake and Output
05/18/24 05/19/24 05/20/24
06:59 06:59 06:59
Intake Total 1260 / 1260 240 / 240
Output Total 495 / 495 610 / 610
Balance 765 / 765 -370 / -370
SaO2: 97
Physical Exam
General: Respiratory Distress (n), Comfortable and Good Appetite
HEENT: Normocephalic, Anicteric and Moist Mucous Membranes
Cardiovascular: Regular Rhythm
Respiratory: Wheeze (n), Crackles, Non-Labored Respirations, Chest Tube and Other (Right-sided crackles/decreased breath sounds at bases)
GI: Soft, Non Distended and Non Tender
Neurology: Awake, Alert and No Motor Deficits
Skin: Warm, Dry, Good Color, Cyanosis (n), Jaundice (n) and Rash (n)
Labs/Micro/Reports
Lab Data
05/19/24 07:17
05/17/24 06:50
Microbiology
05/12/24 17:01 Blood/Venous Blood Culture - Final
No Growth - Final Report
05/12/24 17:01 Blood/Venous Blood Culture - Final
No Growth - Final Report
05/13/24 11:58 Pleural Fluid Body Fluid Culture - Final
No Growth After 72 Hours
05/13/24 11:58 Pleural Fluid Gram Stain - Final
--- NOTE | 2024-05-19 11:16 | PN.CDI ---
CDI
- -
CDI:
Physician Documentation Request
Admit Date: 05/12/24 19:03
Dear Doctor Do,
Patient admitted with pneumonia.
Please review the following and provide your response in the progress notes.
Clinical Indicators:
Height: 5' 11'
Weight: 134 lb 4 oz
BMI: 18.7
Please provide an associated diagnosis related to the abnormal BMI, such as:
Underweight
Cachectic
Anorexia
BMI is not significant
Other
BMI < or = to 19
Underweight
Weight Loss
Cachectic
Anorexia
Use of terms such as suspected, likely, concern for, or probable (associated with a specific diagnosis that is being evaluated, monitored, or treated as if it exists) are acceptable and can be coded in the inpatient setting, when documented at the
time of discharge.
Thank you,
Loreto LOPEZ,RN,CCDS
CDI Specialist
Available via [place] text
Please use your independent medical judgment in providing your response.
[2024-05-19] MEDS: ENTOCORT EC 3 MG PO (13:18)
[2024-05-19] MEDS: VITAMIN B-12 1000 MCG PO (13:18)
[2024-05-19] MEDS: ASPIR LOW (ENTERIC COATED) 81 MG PO (13:18)
[2024-05-19] MEDS: PROTONIX 40 MG PO (13:18)
[2024-05-19 15:21] VITALS: BP 101/60
--- NOTE | 2024-05-19 16:05 | W.PN.ID1 ---
Date of Service
Date of Service: May 19, 2024
Today's Communication
Continue antibiotics.
Assessment / Plan
Right lower lobe pneumonia
Pleural effusion vs. empyema
- cultures negative thus far
Marked leukocytosis
- trending down
Anemia
Thrombocytosis
- suspect reactive
Reported rash.
- Not clear whether this is secondary to antibiotics, or if this is a contact of rash (would favor the latter)
CVA
HTN
Seizure disorder
Hx TBI
Recommendations:
Continue with empiric meropenem (d#3; d#8 abx) and doxycycline (d#8)
Sputum culture and pleural fluid culture NGTD
Legionella urinary antigen negative
Follow white count and temperature curve. Improvement in leukocytosis encouraging.
Follow Pleur-evac output.
����������������������������������������������������������
Chief Complaint
-: Pneumonia (Suspected empyema)
Subjective / Review of Systems
Review of Systems: No Fever and No Chills
Vital Signs / Physical Exam
Vital Signs
Vital Signs
Temp Pulse Resp BP Pulse Ox
97.5 F 95 18 101/60 93
05/19/24 15:21 05/19/24 15:21 05/19/24 15:21 05/19/24 15:21 05/19/24 15:21
Physical Exam
Constitutional: No Acute Distress, Comfortable and Non-toxic
Eyes: Sclera Anicteric
Cardiovascular: S1/S2; Negative S3/S4
Pulmonary: Non Labored and Other (Decreased breath sounds right side. Right chest tube in place.)
Gastrointestinal: Soft, Non Tender and Non Distended
Extremities: Negative Edema
Skin: Rash (Minimal rash on back. Not especially erythematous or confluent.)
Neurological: Awake and Alert
Objective Data
Lab Data
Lab Results
05/19/24 07:17
05/17/24 06:50
Estimated Creat Clear 65 ml/min 05/17/24 06:50
Lactic Acid 1.9 mmol/L (0.7-2.0) 05/12/24 17:01
Total Bilirubin 0.7 mg/dl (0.2-1.3) 05/12/24 15:36
AST 33 U/L (17-59) 05/12/24 15:36
ALT 37 U/L (0-50) 05/12/24 15:36
Alkaline Phosphatase 114 U/L (38-126) 05/12/24 15:36
Most recent labs reviewed.
Micro Results:
05/12/24 17:01 Blood Culture - Final
Blood/Venous No Growth - Final Report
05/12/24 17:01 Blood Culture - Final
Blood/Venous No Growth - Final Report
05/13/24 11:58 Body Fluid Culture - Final
Pleural Fluid No Growth After 72 Hours
Gram Stain - Final
05/13/24 07:41 Respiratory Culture - Final
Sputum Usual Respiratory Noemi
Gram Stain - Final
05/13/24 20:52 MRSA Screen - Final
Nose No Methicillin Resistant Staphylococcus aureus isolated.
05/13/24 05:32 Legionella Urinary Antigen - Final
Urine Negative for Legionella pneumophila Serogroup 1 antigen.
A negative result does not rule out the possiblity of
Legionella infection due to other serogroups or species of
Legionella. Clinical correlation is recommended.
05/12/24 15:36 Influenza Types A & B (KRISTYN) - Final
Nasal Swab Negative for Influenza A & B, NAAT
Negative results must be combined with clinical observations
and patient history.
Nucleic Acid Amplification test (NAAT)performed on the
[employer] platform.
Imaging:
05/13/2024 CXR (portable): Persistent moderate loculated right-sided pleural effusion with adjacent atelectasis. No visible pneumothorax.
05/12/2024 CT chest with contrast: Moderate to large lobulated right pleural effusion, possibly partially loculated, new in the interval since the comparison CT of 2020. Accompanying somewhat rounded/oblong shaped area of heterogeneous slight
decreased attenuation in the right lower lobe measuring approximately 5 cm. Differential diagnostic possibilities include infectious process (such as pneumonia) or mass/tumor. Please see full dictation for additional detail. Film personally
reviewed.
[2024-05-19] MEDS: ATIVAN 1 MG PO (17:59)
[2024-05-19] MEDS: NEURONTIN 100 MG PO (17:59)
[2024-05-19] MEDS: LOVENOX 40 MG SC (17:59)
[2024-05-19] MEDS: MELATONIN 5 MG PO (20:02)
[2024-05-19] MEDS: MUCINEX 1200 MG PO (20:02)
[2024-05-19 23:00] VITALS: BP 112/63
[2024-05-20] MEDS: MERREM 500 MG IV ×4 (04:29→22:06)
[2024-05-20] MEDS: STERILE WATER FOR INJECTION 10 ML IV ×4 (04:30→22:06)
[2024-05-20 07:20] VITALS: BP 148/80
--- NOTE | 2024-05-20 07:32 | W.PN.HOSP.TC ---
Today's Communication/Plan
-
IR to pull chest tube today
Assessment / Plan
Assessment / Plan
Community-acquired pneumonia involving the right lung and complicated by empyema. S/P chest tube placement and Intra pleural tPA with significant output and improvement of the pleural effusion. So far culture from the fluid is negative. Cytology
neg for malignancy.
Decreasing CT output. Appreciate pulmonology input, plan for chest tube removal today
Neg blood cultures so far; Legionella Ag neg
Chest CT noted
Continue meropenem and doxycycline as per ID
Dysphagia -cleared by [facility] for soft diet with thin liquids
BMI 18.7 is not significant
Leukocytosis - significant elevation with thrombocytosis - no prior hx of myeloproliferative disorder. Treat pneumonia and follow white count. Improving.
Skin rash - less prominent in back now . unclear if related abx . Cefepime switched to Meropenem. Started triamcinolone ointment 3 times daily 05/18, continue Benadryl as needed
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
DVT prophylaxis�subcu Lovenox
Full code
Updated at bedside 05/18
Updated on phone 05/19
Total time spent to see the patient on the floor, examine the patient, review data and lab results, discuss treatment plan with patient, nursing staff around 40 minutes.
Physical Exam
General: No acute distress
HEENT: Normocephalic, Atraumatic, EOMI, MMM
Respiratory: Diminished breath sounds at the right lung base
Cardiac: Normal S1/S2, Regular Rate and Rhythm
GI: Soft, Nontender, Nondistended, Normal Bowel Sounds
Extremities: No Clubbing, Cyanosis, or Edema
Neuro: Nonfocal/Grossly Intact
Psych: Calm, Cooperative
Derm: Erythematous macules scattered all over back
.
Anticipated Discharge: 24 - 48 hours
Subjective/Interval History
-
Date of Service: May 20, 2024
Patient had a pill stuck in his throat. Denies shortness of breath, chest pain. No fever, no vomiting. Itchiness on back improved.
Objective Data
-
Labs:
Laboratory Results
05/20/24
06:00
WBC Pending
Hgb Pending
Hct Pending
Plt Count Pending
Vital Signs:
Vital Signs
Temp Pulse Resp BP Pulse Ox
98.7 F 79 20 112/63 95
05/19/24 23:00 05/19/24 23:00 05/19/24 23:00 05/19/24 23:00 05/19/24 23:00
I&O
05/19/24 05/20/24 05/21/24
06:59 06:59 06:59
Intake Total 240 / 240 900 / 900
Output Total 610 / 610 1201 / 1201
Balance -370 / -370 -301 / -301
[2024-05-20] MEDS: TRIAMCINOLONE 0.1% OINTMENT 1 APPLIC TOPICAL ×2 (08:10→17:12)
[2024-05-20] MEDS: CARDURA 1 MG PO (08:11)
[2024-05-20] MEDS: VIBRAMYCIN 100 MG PO (08:11)
[2024-05-20] MEDS: MUCINEX 1200 MG PO ×2 (08:11→20:39)
[2024-05-20] MEDS: VIMPAT 100 MG PO ×2 (08:11→20:39)
[2024-05-20 08:52] LABS: Hematocrit 32.6 % (39.0-52.0); Hemoglobin 11.3 g/dL (13.0-18.0); Mean Corp Hgb Conc. 34.7 g/dL (33.0-37.0); Mean Corpuscular Hgb 31.4 pg (27.0-31.0); Mean Corpuscular Volume 90.6 fL (80.0-94.0); Mean Platelet Volume 8.7 fL (7.4-10.4); Platelet Count 783 10^3/uL (130-400); Red Cell Dist. Width 13.5 % (11.5-14.5); White Blood Cell Count 14.2 10^3/uL (4.8-10.8)
--- NOTE | 2024-05-20 09:08 | W.PN.PUL.V3 ---
Today's Communication / Plan
-
.
Wean oxygen.
Pull chest tube.
Continue antibiotics.
Follow clinically and radiographically-small amount of fluid still present, could not be fully evacuated-small chance of residual empyema which could increase over time
Assessment
-
78-year-old male with past medical history significant for prior CVA, history of seizures, post TBI who came to the hospital with 2-week history of coughing, chest congestion, feeling tired and weak.
Admitted to the hospital on 05/12/2024 for further evaluation given significantly abnormal chest x-ray with right lower lobe abnormality with moderate pleural effusion.
Severe large right lower lobe pneumonia with complicated parapneumonic effusion-cannot rule out empyema
Chest tube placed -05/14/2024
s/p TPA/Dornase
Leukocytosis/Fever
Cannot rule out aspiration event as patient has poor dentition and swallowing dysfunction that is chronic.
Conditions present prior admission:
History of CVA
History of TBI
History of seizure disorder.
Plan:
Respiratory status relatively stable..
Continue attempts at weaning oxygen
Increase activity.
CT chest 05/16/24-small right hydropneumothorax with small amount of loculated pleural fluid anteriorly, rounded atelectasis, improved posteriorly.
Chest x-ray 05/18/24-stable appearance of right-sided chest tube with slightly improved aeration of the lung bases with residual trace pleural effusion.
Chest x-ray 05/19/24-right pleural pigtail catheter present, no evidence for significant pneumothorax, small to moderate right pleural effusion
Aspiration precautions.
Video swallow 05/13/24-no aspiration, mild pharyngeal stasis.
Speech therapy following
Thoracentesis 05/13/24-exudate, pH less than 7, total protein 3.7, LDH 1252-suggest empyema.
Chest tube placed 05/14/24 with subsequent probable lysis/DNase--1700 mL, output
Monitor chest tube output
Dr. Huff contacted interventional radiology for potential chest tube removal on 05/18/24-we'll obtain chest x-ray 05/19/24 and if minimal pleural fluid, then chest tube likely will be removed
Chest x-ray -right pleural pigtail catheter present, no evidence for significant pneumothorax
Chest tube with minimal drainage-less than 1 mL last 24-48 hours.
Consider discontinuing chest tube with minimal pleural fluid left.
Pleural fluid cytology 05/13/24-negative for malignant cells.
Cultures reviewed.
Sputum with usual respiratory mic.
Pleural fluid, 05/13/24-no growth.
MRSA screen negative.
Urine Legionella antigen negative.
Blood cultures negative.
Influenza negative.
Empiric antibiotics continues- finish a finite course
Infectious disease following-correspondence reviewed
DVT prophylaxis-on Lovenox..
GI prophylaxis-on pantoprazole
Reviewed with nursing as well as primary team and Dr. Huff called interventional radiology
Eventual outpatient pulmonary follow-up
Diagnostic Data
Chest X-Ray: 05/16/24- Stable position of a right basilar chest tube. Pleural line with peripheral lucency at the apical and medial portions of the right lung suggesting development of a small pneumothorax. Small right pleural effusion. Bibasilar
atelectasis, right greater than left.
Linear interface overlying the periphery of the left lung favored to represent a skinfold in correlation with previous examinations.
The cardiomediastinal silhouette is stable. Contrast material in the transverse colon. Chronic degenerative changes of the spine.
CT Scan: 05/12/24- Moderate to large lobulated right pleural effusion, possibly partially loculated new in the interval since relative remote prior CT. Accompanying somewhat rounded/oblong-shaped area of heterogeneous slight decreased attenuation in
the right lower lobe measuring approximately 5 cm. Differential diagnostic possibilities include infectious process such as pneumonia or mass/tumor.
Approximate 2 cm slightly low attenuation left adrenal nodule, indeterminate.
Subjective Data
-
Date of Service:
Date of Service: May 20, 2024
Chief Complaint: Pulmonary Follow Up (Pneumonia with parapneumonic effusion) and Dyspnea Follow Up
Subjective:
No complaints of increased shortness of breath, minimal drainage, no abdominal pain
Review of Systems
General: Other ( per HPI)
Objective Data
Data Reviewed
Vital Signs / I&O:
Vital Signs
Temp Pulse Resp BP Pulse Ox
97.8 F 76 18 148/88 96
05/20/24 07:20 05/20/24 08:11 05/20/24 07:20 05/20/24 08:11 05/20/24 07:45
Intake and Output
05/19/24 05/20/24 05/21/24
06:59 06:59 06:59
Intake Total 240 / 240 900 / 900
Output Total 610 / 610 1201 / 1201
Balance -370 / -370 -301 / -301
SaO2: 96
Physical Exam
General: Respiratory Distress (n), Comfortable and Good Appetite
HEENT: Normocephalic, Anicteric and Moist Mucous Membranes
Cardiovascular: Regular Rhythm
Respiratory: Wheeze (n), Crackles, Non-Labored Respirations, Chest Tube and Other (Right-sided crackles/decreased breath sounds at bases)
GI: Soft, Non Distended and Non Tender
Neurology: Awake, Alert and No Motor Deficits
Skin: Warm, Dry, Good Color, Cyanosis (n), Jaundice (n) and Rash (n)
Labs/Micro/Reports
Lab Data
05/20/24 08:14
05/17/24 06:50
Microbiology
05/12/24 17:01 Blood/Venous Blood Culture - Final
No Growth - Final Report
05/12/24 17:01 Blood/Venous Blood Culture - Final
No Growth - Final Report
--- NOTE | 2024-05-20 13:39 | PTOTSP ---
SPEECH THERAPY SWALLOW FOLLOW UP:
Patient continues to exhibit clinical signs of oropharyngeal dysphagia, likely chronic related to history of CVA/TBI. Patient remains at risk for aspiration and related complications.
RECOMMEND:
1) diet downgrade to IDDSI Level 6 Soft and bite size diet, thin liquids
2) medications crushed in puree if medically cleared to do so
3) Aspiration precautions: 100% supervision/assistance with meals; NO STRAWS; single sips/bites; slow rate; alternate textures; extra dry swallows during meals; Upright positioning; Remain upright 30 minutes after eating/drinking; Monitor for signs
of aspiration and d/c oral diet if any decline in mental or respiratory status
4) ST to continue to follow at the acute care level; Recommend continued ST services upon discharge
5) Oral care 3x/day and increased mobility as able/tolerated to reduce risk for nosocomial infection
[2024-05-20] MEDS: ENTOCORT EC 3 MG PO (13:54)
[2024-05-20] MEDS: VITAMIN B-12 1000 MCG PO (13:54)
[2024-05-20] MEDS: ASPIR LOW (ENTERIC COATED) 81 MG PO (13:55)
[2024-05-20] MEDS: PROTONIX 40 MG PO (13:55)
[2024-05-20 14:28] VITALS: BP 125/64; PULSE 93; O2SAT 97
[2024-05-20 15:04] VITALS: BP 125/64
--- NOTE | 2024-05-20 15:16 | W.PN.ID1 ---
Date of Service
Date of Service: May 20, 2024
Today's Communication
Continue antibiotics.
Assessment / Plan
Right lower lobe pneumonia
Pleural effusion vs. empyema
- cultures negative thus far
Marked leukocytosis
- trending down
Anemia
Thrombocytosis
- suspect reactive
Reported rash.
- Not clear whether this is secondary to antibiotics, or if this is a contact of rash (would favor the latter)
CVA
HTN
Seizure disorder
Hx TBI
Recommendations:
Continue with empiric meropenem (d#4; d#9 abx). Discontinue further doxycycline.
Sputum culture and pleural fluid culture NGTD
Legionella urinary antigen negative
Follow white count and temperature curve. Ongoing improvement in leukocytosis encouraging.
����������������������������������������������������������
Chief Complaint
-: Pneumonia (Suspected empyema)
Subjective / Review of Systems
Review of Systems: No Fever and No Chills
Vital Signs / Physical Exam
Vital Signs
Vital Signs
Temp Pulse Resp BP Pulse Ox
97.6 F 93 18 125/64 96
05/20/24 15:04 05/20/24 15:04 05/20/24 15:04 05/20/24 15:04 05/20/24 15:09
Physical Exam
Constitutional: No Acute Distress, Comfortable and Non-toxic
Eyes: Sclera Anicteric
Cardiovascular: S1/S2; Negative S3/S4
Pulmonary: Non Labored and Other (Chest tube now removed.)
Gastrointestinal: Soft, Non Tender and Non Distended
Extremities: Negative Edema
Skin: Rash (Minimal rash on back. Not especially erythematous or confluent.)
Neurological: Awake and Alert
Objective Data
Lab Data
Lab Results
05/20/24 08:14
05/17/24 06:50
Estimated Creat Clear 65 ml/min 05/17/24 06:50
Lactic Acid 1.9 mmol/L (0.7-2.0) 05/12/24 17:01
Total Bilirubin 0.7 mg/dl (0.2-1.3) 05/12/24 15:36
AST 33 U/L (17-59) 05/12/24 15:36
ALT 37 U/L (0-50) 05/12/24 15:36
Alkaline Phosphatase 114 U/L (38-126) 05/12/24 15:36
Most recent labs reviewed.
Micro Results:
05/12/24 17:01 Blood Culture - Final
Blood/Venous No Growth - Final Report
05/12/24 17:01 Blood Culture - Final
Blood/Venous No Growth - Final Report
05/13/24 11:58 Body Fluid Culture - Final
Pleural Fluid No Growth After 72 Hours
Gram Stain - Final
05/13/24 07:41 Respiratory Culture - Final
Sputum Usual Respiratory Noemi
Gram Stain - Final
05/13/24 20:52 MRSA Screen - Final
Nose No Methicillin Resistant Staphylococcus aureus isolated.
05/13/24 05:32 Legionella Urinary Antigen - Final
Urine Negative for Legionella pneumophila Serogroup 1 antigen.
A negative result does not rule out the possiblity of
Legionella infection due to other serogroups or species of
Legionella. Clinical correlation is recommended.
05/12/24 15:36 Influenza Types A & B ([facility]STYN) - Final
Nasal Swab Negative for Influenza A & B, NAAT
Negative results must be combined with clinical observations
and patient history.
Nucleic Acid Amplification test (NAAT)performed on the
[employer] platform.
Imaging:
05/13/2024 CXR (portable): Persistent moderate loculated right-sided pleural effusion with adjacent atelectasis. No visible pneumothorax.
05/12/2024 CT chest with contrast: Moderate to large lobulated right pleural effusion, possibly partially loculated, new in the interval since the comparison CT of 2020. Accompanying somewhat rounded/oblong shaped area of heterogeneous slight
decreased attenuation in the right lower lobe measuring approximately 5 cm. Differential diagnostic possibilities include infectious process (such as pneumonia) or mass/tumor. Please see full dictation for additional detail. Film personally
reviewed.
[2024-05-20] MEDS: NEURONTIN 100 MG PO (18:16)
[2024-05-20] MEDS: LOVENOX 40 MG SC (18:16)
[2024-05-20] MEDS: ATIVAN 1 MG PO (18:16)
--- NOTE | 2024-05-20 19:48 | PTCARENOTE ---
Patient's right sided chest tube was removed in IR today. Patient with dressing on right flank area. Dressing has small amount of serosanguinous drainage noted on the 4 x 4. Patient denies complaints at this time.
[2024-05-20] MEDS: MELATONIN 5 MG PO (20:39)
[2024-05-20] MEDS: TRIAMCINOLONE 0.1% OINTMENT TOPICAL (22:06)
[2024-05-20 23:53] VITALS: BP 120/62
[2024-05-21] MEDS: STERILE WATER FOR INJECTION 10 ML IV ×2 (04:35→11:19)
[2024-05-21] MEDS: MERREM 500 MG IV ×2 (04:35→11:19)
[2024-05-21 07:38] VITALS: BP 158/83
[2024-05-21 08:37] LABS: Hematocrit 32.5 % (39.0-52.0); Mean Corp Hgb Conc. 33.8 g/dL (33.0-37.0); Mean Corpuscular Hgb 29.8 pg (27.0-31.0); Mean Corpuscular Volume 88.1 fL (80.0-94.0); Mean Platelet Volume 8.5 fL (7.4-10.4); Platelet Count 793 10^3/uL (130-400); Red Blood Cell Count 3.69 10^6/uL (4.70-6.10); Red Cell Dist. Width 13.4 % (11.5-14.5); White Blood Cell Count 13.5 10^3/uL (4.8-10.8)
[2024-05-21] MEDS: CARDURA 1 MG PO (08:42)
[2024-05-21] MEDS: MUCINEX 1200 MG PO ×2 (08:42→19:53)
[2024-05-21] MEDS: TRIAMCINOLONE 0.1% OINTMENT 1 APPLIC TOPICAL ×2 (08:43→22:30)
[2024-05-21] MEDS: VIMPAT 100 MG PO ×2 (08:43→19:53)
--- NOTE | 2024-05-21 09:03 | W.PN.HOSP.TC ---
Today's Communication/Plan
-
see bold
Assessment / Plan
Assessment / Plan
Community-acquired pneumonia involving the right lung and complicated by empyema. S/P chest tube placement and Intra pleural tPA with significant output and improvement of the pleural effusion. So far culture from the fluid is negative. Cytology
neg for malignancy.
Decreasing CT output. Appreciate pulmonology input, chest tube removed 05/20, pulmonology signed off.
Neg blood cultures so far; Legionella Ag neg
Chest CT noted. Status post cefepime, then meropenem/Doxy, now on Zosyn as per ID
Dysphagia -SPL recommends soft diet with honey thickened liquids, for VSE tomorrow
BMI 18.7 is not significant
Leukocytosis - significant elevation with thrombocytosis - no prior hx of myeloproliferative disorder. Treat pneumonia and follow white count. Improving.
Skin rash - less prominent in back now . unclear if related abx . Cefepime switched to Meropenem. Started triamcinolone ointment 3 times daily 05/18, continue Benadryl as needed
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
DVT prophylaxis�subcu Lovenox
Full code
Updated at bedside 05/18
Updated on phone 05/19
Updated on phone 05/21
Total time spent to see the patient on the floor, examine the patient, review data and lab results, discuss treatment plan with patient, nursing staff around 50 minutes.
Physical Exam
General: No acute distress
HEENT: Normocephalic, Atraumatic, EOMI, MMM
Respiratory: Diminished breath sounds at the right lung base
Cardiac: Normal S1/S2, Regular Rate and Rhythm
GI: Soft, Nontender, Nondistended, Normal Bowel Sounds
Extremities: No Clubbing, Cyanosis, or Edema
Neuro: Nonfocal/Grossly Intact
Psych: Calm, Cooperative
Derm: Erythematous macules scattered all over back
.
Anticipated Discharge: 24 - 48 hours
Subjective/Interval History
-
Date of Service: May 21, 2024
Patient complains of choking on thin liquids. Denies chest pain, no shortness of breath. No fever.
Objective Data
-
Labs:
Laboratory Results
05/21/24
07:41
WBC 13.5 H
Hgb 11.0 L
Hct 32.5 L
Plt Count 793 H
Vital Signs:
Vital Signs
Temp Pulse Resp BP Pulse Ox
98.1 F 74 20 158/83 97
05/21/24 07:38 05/21/24 08:42 05/21/24 07:38 05/21/24 08:42 05/21/24 07:38
I&O
05/20/24 05/21/24 05/22/24
06:59 06:59 06:59
Intake Total 900 / 900 1080 / 1080
Output Total 1201 / 1201 1350 / 1350
Balance -301 / -301 -270 / -270
--- NOTE | 2024-05-21 09:54 | W.PN.PUL.V3 ---
Today's Communication / Plan
-
. Antibiotics per infectious disease.
Chest tube out.
Pulmonary will sign off-please call with questions
Assessment
-
78-year-old male with past medical history significant for prior CVA, history of seizures, post TBI who came to the hospital with 2-week history of coughing, chest congestion, feeling tired and weak.
Admitted to the hospital on 05/12/2024 for further evaluation given significantly abnormal chest x-ray with right lower lobe abnormality with moderate pleural effusion.
Severe large right lower lobe pneumonia with complicated parapneumonic effusion-cannot rule out empyema
Chest tube placed -05/14/2024
s/p TPA/Dornase
Leukocytosis/Fever
Cannot rule out aspiration event as patient has poor dentition and swallowing dysfunction that is chronic.
Conditions present prior admission:
History of CVA
History of TBI
History of seizure disorder.
Plan:
Respiratory status relatively stable
Continue attempts at weaning oxygen
Increase activity
CT chest 05/16/24-small right hydropneumothorax with small amount of loculated pleural fluid anteriorly, rounded atelectasis, improved posteriorly.
Chest x-ray 05/18/24-stable appearance of right-sided chest tube with slightly improved aeration of the lung bases with residual trace pleural effusion.
Chest x-ray 05/19/24-right pleural pigtail catheter present, no evidence for significant pneumothorax, small to moderate right pleural effusion
Aspiration precautions.
Video swallow 05/13/24-no aspiration, mild pharyngeal stasis.
Speech therapy following
Thoracentesis 05/13/24-exudate, pH less than 7, total protein 3.7, LDH 1252-suggest empyema.
Chest tube placed 05/14/24 with subsequent probable lysis/DNase--1700 mL, output
Monitor chest tube output
Chest tube removed
Chest x-ray 05/19/24-right pleural pigtail catheter present, no evidence for significant pneumothorax
Pleural fluid cytology 05/13/24-negative for malignant cells.
Cultures reviewed.
Sputum with usual respiratory mic.
Pleural fluid, 05/13/24-no growth.
MRSA screen negative.
Urine Legionella antigen negative.
Blood cultures negative.
Influenza negative.
Empiric antibiotics continues- finish a finite course
Infectious disease following-correspondence reviewed
DVT prophylaxis-on Lovenox..
GI prophylaxis-on pantoprazole
Respiratory status stable-Pulmonary. We'll sign off-. Please call with questions
Reviewed with nursing as well as primary team
Eventual outpatient pulmonary follow-up
Diagnostic Data
Chest X-Ray: 05/16/24- Stable position of a right basilar chest tube. Pleural line with peripheral lucency at the apical and medial portions of the right lung suggesting development of a small pneumothorax. Small right pleural effusion. Bibasilar
atelectasis, right greater than left.
Linear interface overlying the periphery of the left lung favored to represent a skinfold in correlation with previous examinations.
The cardiomediastinal silhouette is stable. Contrast material in the transverse colon. Chronic degenerative changes of the spine.
CT Scan: 05/12/24- Moderate to large lobulated right pleural effusion, possibly partially loculated new in the interval since relative remote prior CT. Accompanying somewhat rounded/oblong-shaped area of heterogeneous slight decreased attenuation in
the right lower lobe measuring approximately 5 cm. Differential diagnostic possibilities include infectious process such as pneumonia or mass/tumor.
Approximate 2 cm slightly low attenuation left adrenal nodule, indeterminate.
Subjective Data
-
Date of Service:
Date of Service: May 21, 2024
Chief Complaint: Pulmonary Follow Up (Pneumonia with parapneumonic effusion) and Dyspnea Follow Up
Subjective:
no complaints worsen shortness of breath, chest pain or abdominal pain, chest tube out
Review of Systems
General: Other ( per HPI)
Objective Data
Data Reviewed
Vital Signs / I&O:
Vital Signs
Temp Pulse Resp BP Pulse Ox
98.1 F 74 20 158/83 97
05/21/24 07:38 05/21/24 08:42 05/21/24 07:38 05/21/24 08:42 05/21/24 07:38
Intake and Output
05/20/24 05/21/24 05/22/24
06:59 06:59 06:59
Intake Total 900 / 900 1080 / 1080
Output Total 1201 / 1201 1350 / 1350
Balance -301 / -301 -270 / -270
SaO2: 97
Physical Exam
General: Respiratory Distress (n), Comfortable and Good Appetite
HEENT: Normocephalic, Anicteric and Moist Mucous Membranes
Cardiovascular: Regular Rhythm
Respiratory: Wheeze (n), Crackles, Non-Labored Respirations and Other (Right-sided crackles/decreased breath sounds at bases)
GI: Soft, Non Distended and Non Tender
Neurology: Awake, Alert and No Motor Deficits
Skin: Warm, Dry, Good Color, Cyanosis (n), Jaundice (n) and Rash (n)
Labs/Micro/Reports
Lab Data
05/21/24 07:41
05/17/24 06:50
--- NOTE | 2024-05-21 14:04 | W.PN.ID1 ---
Date of Service
Date of Service: May 21, 2024
Today's Communication
Continue antibiotics. Antibiotics transitioned to Zosyn. See below�
Assessment / Plan
Right lower lobe pneumonia
Pleural effusion vs. empyema
- cultures negative thus far
Marked leukocytosis
- trending down
Anemia
Thrombocytosis
- suspect reactive
Reported rash.
- Not clear whether this is secondary to antibiotics, or if this is a contact of rash (would favor the latter)
CVA
HTN
Seizure disorder
Hx TBI
Recommendations:
Patient previously reports rash with cefepime, limiting antibiotic selection.
Patient tentatively for discharge to home, and would be administering IV antibiotics.
Patient with an underlying history of epilepsy. I have. The options of home antibiotics, which at this point in time would be her ertapenem, which is once daily, but carries a slightly higher risk for seizures, versus Zosyn which is 3 times a
day, but with lower risk of seizure potential. After weighing the pros and cons of each, the has decided upon Zosyn via shared decision making.
Will transition to Zosyn, and home infusion antibiotic sheet will be placed on paper chart.
Will follow-up with with patient in the office in 2 to 3 weeks.
Ongoing improvement in leukocytosis encouraging.
����������������������������������������������������������
Chief Complaint
-: Pneumonia (Suspected empyema)
Subjective / Review of Systems
Patient seen and examined. Reports ongoing cough. Sputum production, though.
Review of Systems: No Fever and No Chills
Vital Signs / Physical Exam
Vital Signs
Vital Signs
Temp Pulse Resp BP Pulse Ox
98.1 F 74 20 158/83 97
05/21/24 07:38 05/21/24 08:42 05/21/24 07:38 05/21/24 08:42 05/21/24 09:54
Physical Exam
Constitutional: No Acute Distress, Comfortable and Non-toxic
Eyes: Sclera Anicteric
Cardiovascular: S3/S4
Pulmonary: Coarse and Non Labored
Gastrointestinal: Soft, Non Tender and Non Distended
Extremities: Negative Edema
Skin: Rash (Minimal rash on back. Not especially erythematous or confluent.)
Neurological: Awake and Alert
Objective Data
Lab Data
Lab Results
05/21/24 07:41
05/17/24 06:50
Estimated Creat Clear 65 ml/min 05/17/24 06:50
Lactic Acid 1.9 mmol/L (0.7-2.0) 05/12/24 17:01
Total Bilirubin 0.7 mg/dl (0.2-1.3) 05/12/24 15:36
AST 33 U/L (17-59) 05/12/24 15:36
ALT 37 U/L (0-50) 05/12/24 15:36
Alkaline Phosphatase 114 U/L (38-126) 05/12/24 15:36
Most recent labs reviewed.
Micro Results:
05/12/24 17:01 Blood Culture - Final
Blood/Venous No Growth - Final Report
05/12/24 17:01 Blood Culture - Final
Blood/Venous No Growth - Final Report
05/13/24 11:58 Body Fluid Culture - Final
Pleural Fluid No Growth After 72 Hours
Gram Stain - Final
05/13/24 07:41 Respiratory Culture - Final
Sputum Usual Respiratory Noemi
Gram Stain - Final
05/13/24 20:52 MRSA Screen - Final
Nose No Methicillin Resistant Staphylococcus aureus isolated.
05/13/24 05:32 Legionella Urinary Antigen - Final
Urine Negative for Legionella pneumophila Serogroup 1 antigen.
A negative result does not rule out the possiblity of
Legionella infection due to other serogroups or species of
Legionella. Clinical correlation is recommended.
05/12/24 15:36 Influenza Types A & B (KRISTYN) - Final
Nasal Swab Negative for Influenza A & B, NAAT
Negative results must be combined with clinical observations
and patient history.
Nucleic Acid Amplification test (NAAT)performed on the
[employer] platform.
Imaging:
05/13/2024 CXR (portable): Persistent moderate loculated right-sided pleural effusion with adjacent atelectasis. No visible pneumothorax.
05/12/2024 CT chest with contrast: Moderate to large lobulated right pleural effusion, possibly partially loculated, new in the interval since the comparison CT of 2020. Accompanying somewhat rounded/oblong shaped area of heterogeneous slight
decreased attenuation in the right lower lobe measuring approximately 5 cm. Differential diagnostic possibilities include infectious process (such as pneumonia) or mass/tumor. Please see full dictation for additional detail. Film personally
reviewed.
Care Review
Plan reviewed with: Physician (Hospitalist)
[2024-05-21] MEDS: ENTOCORT EC 3 MG PO (14:28)
[2024-05-21] MEDS: ASPIR LOW (ENTERIC COATED) 81 MG PO (14:28)
[2024-05-21] MEDS: VITAMIN B-12 1000 MCG PO (14:28)
[2024-05-21] MEDS: PROTONIX 40 MG PO (14:28)
--- NOTE | 2024-05-21 15:05 | CM ---
Addendum entered by Zarina Hopper 05/21/24 15:38:
Patient accepted by [facility]
Original Note:
Spoke with patients spouse Ofe.
CM discussed home antibiotics with spouse.
Spouse agreeable to home with [facility] and [facility].
Had [facility] in the past. Referral via [facility].
Script and clinicals sent to [facility] for costs.
PICC line pending. Will need to send PICC/Midline information and CXR confirmation to [facility].
Plan: home with IV anbx, pending costs and VN.
--- NOTE | 2024-05-21 15:27 | PTOTSP ---
ST Follow-Up
Pt continues to present with clinical signs of mild to moderate oropharyngeal dysphagia.
Recommendations:
- DOWNGRADE pt's diet to soft bite sized solids with moderately thick liquids and meds crushed in puree as able.
- STRICT aspiration precautions: HOB upright for all PO intake, no talking while eating/drinking, small bites/sips, slow intake rate, moisten all foods.
- Repeat VFSS with multiple trials of thin liquids via open cup for more information regarding airway protection.
- BEER RUNNER to f/u and provide additional recommendations after VFSS has been completed.
[2024-05-21 15:51] VITALS: BP 112/67
[2024-05-21 16:13] VITALS: PULSE 84; O2SAT 97
[2024-05-21] MEDS: ZOSYN 50 IV ×2 (16:27→22:30)
[2024-05-21] MEDS: TRIAMCINOLONE 0.1% OINTMENT TOPICAL (16:45)
[2024-05-21] MEDS: ATIVAN 1 MG PO (19:52)
[2024-05-21] MEDS: LOVENOX 40 MG SC (19:52)
[2024-05-21] MEDS: NEURONTIN 100 MG PO (19:53)
[2024-05-21] MEDS: MELATONIN 5 MG PO (19:53)
--- NOTE | 2024-05-21 20:14 | PTCARENOTE ---
Patient with coughing while drinking thin liquids. Patient states that he 'feels as though there is something caught in his throat'. Notified Dr. Peña and speech and swallowing. Speech and swallowing saw patient at bedside. Recommends a repeat more
extensive video swallow tomorrow. Currently on IDDSI 6 - soft and bite sized. Aspiration precautions followed.
[2024-05-21 23:00] VITALS: BP 117/75
[2024-05-22] MEDS: ZOSYN 50 IV ×4 (03:16→22:09)
[2024-05-22 07:35] VITALS: BP 128/58
[2024-05-22 08:20] LABS: Hematocrit 33.4 % (39.0-52.0); Mean Corp Hgb Conc. 32.9 g/dL (33.0-37.0); Mean Corpuscular Hgb 29.3 pg (27.0-31.0); Mean Corpuscular Volume 88.8 fL (80.0-94.0); Mean Platelet Volume 8.7 fL (7.4-10.4); Platelet Count 723 10^3/uL (130-400); Red Blood Cell Count 3.76 10^6/uL (4.70-6.10); Red Cell Dist. Width 13.7 % (11.5-14.5); White Blood Cell Count 17.3 10^3/uL (4.8-10.8)
[2024-05-22] MEDS: MUCINEX 1200 MG PO ×2 (08:48→22:03)
[2024-05-22] MEDS: VIMPAT 100 MG PO ×2 (08:48→22:03)
[2024-05-22] MEDS: CARDURA 1 MG PO (08:48)
[2024-05-22] MEDS: TRIAMCINOLONE 0.1% OINTMENT 1 APPLIC TOPICAL ×3 (08:49→22:34)
--- NOTE | 2024-05-22 08:51 | W.PN.HOSP.TC ---
Today's Communication/Plan
-
see bold
Assessment / Plan
Assessment / Plan
Community-acquired pneumonia involving the right lung and complicated by empyema. S/P chest tube placement and Intra pleural tPA with significant output and improvement of the pleural effusion. So far culture from the fluid is negative. Cytology
neg for malignancy.
Decreasing CT output. Appreciate pulmonology input, chest tube removed 05/20, pulmonology signed off.
Neg blood cultures so far; Legionella Ag neg
Chest CT noted. Status post cefepime, then meropenem/Doxy, now on Zosyn as per ID
Cleared by ID for discharge Zosyn until seen by ID in the office
Insert PICC
Dysphagia -05/22 VSE shows aspiration with thin liquids, deeply penetrated nectar liquids via straw, severe retention with pur�es. Neurology consulted for possible neurologic causes of oropharyngeal dysphagia. SPL recommends clear liquid diet with
mildly thickened liquids, meds and mildly thickened liquids.
BMI 18.7 is not significant, continue protein supplement
Leukocytosis - significant elevation with thrombocytosis - no prior hx of myeloproliferative disorder. Treat pneumonia and follow white count. Improving.
Skin rash - less prominent in back now . unclear if related abx . Cefepime switched to Meropenem. Started triamcinolone ointment 3 times daily 05/18, continue Benadryl as needed
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
DVT prophylaxis�subcu Lovenox
Full code
Updated at bedside 05/18
Updated on phone 05/19
Updated on phone 05/21
Updated at bedside 05/22
Total time spent to see the patient on the floor, examine the patient, review data and lab results, discuss treatment plan with patient, nursing staff around 54 minutes.
Physical Exam
General: No acute distress
HEENT: Normocephalic, Atraumatic, EOMI, MMM
Respiratory: Diminished breath sounds at the right lung base
Cardiac: Normal S1/S2, Regular Rate and Rhythm
GI: Soft, Nontender, Nondistended, Normal Bowel Sounds
Extremities: No Clubbing, Cyanosis, or Edema
Neuro: Nonfocal/Grossly Intact
Psych: Calm, Cooperative
Derm: Erythematous macules scattered all over back
.
Anticipated Discharge: 24 - 48 hours
Subjective/Interval History
-
Date of Service: May 22, 2024
Patient denies chest pain, shortness of breath. No fever, no vomiting.
Objective Data
-
Labs:
Laboratory Results
05/22/24
07:36
WBC 17.3 H
Hgb 11.0 L
Hct 33.4 L
Plt Count 723 H
Vital Signs:
Vital Signs
Temp Pulse Resp BP Pulse Ox
98.1 F 69 18 128/58 97
05/22/24 07:35 05/22/24 07:35 05/22/24 07:35 05/22/24 07:35 05/22/24 07:35
I&O
05/21/24 05/22/24 05/23/24
06:59 06:59 06:59
Intake Total 1080 / 1080 720 / 720
Output Total 1350 / 1350 475 / 475
Balance -270 / -270 245 / 245
--- NOTE | 2024-05-22 09:22 | CM ---
Script and clinicals sent to [facility] for costs yesterday.
TC from [facility] today requesting face sheet and H+P.
[facility] updated and resent referral to [facility] (file did not completely send per [facility])
[facility] has accepted patient.
PICC line pending. Will need to send PICC/Midline information and CXR confirmation to [facility] and [facility]
--- NOTE | 2024-05-22 12:02 | PTOTSP ---
Video Swallow Study
Summary: Patient presents with mild oral and at least moderate-severe pharyngeal dysphagia that has worsened compared to mild oral/pharyngeal dysphagia noted on video swallow study 05/13/2024. Given worsened swallowing function of unknown
etiology, consider neurology consult and further medical work up.
Recommend diet below for swallowing maintenance only. Consider temporary non-oral means pending goals of care.
Recommend:
1. IDDSI Level 2 Mildly Thick Liquids via single CUP sips; consider supplemental temporary non-oral means for primary nutrition/hydration
2. Medications - via non-oral means
3. Oral care 3x daily
4. Strategies: supervision, single sips, double swallows, avoid straw
5. Aspiration Risk Hydration Protocol - sparing ice chips after oral care with supervision
6. Dysphagia therapy at the acute care level and after D/C
[2024-05-22] MEDS: D5/0.9% SODIUM CHLORIDE 1000 IV (12:16)
--- NOTE | 2024-05-22 13:09 | CM ---
Addendum entered by Enrico Almazan 05/22/24 14:35:
CM spoke to [facility] liaison and she stated she feels it might not feasible that pt will be discharged tomorrow and if pt will be discharged tomorrow it has to be by 9:00 a.m.
Per [facility] liaison they will be able to accept the pt as early as Saturday05/26/24. Per liaison they do not have availability to accept the pt on Saturday.
CM will follow to continue coordinating pt's discharge with [facility] infusion therapy and [facility].
Original Note:
CM following re: discharge planning.
Reviewed pt's chart, met with pt and pt's spouse at bedside.
Per CM note a plan is for pt to return back home with [facility] infusion therapy, [facility] and family support.
CM had many phone calls with [facility] liaison and [facility] liaison to coordinate pt's smooth transition to home with infusion therapy and VN services.
Per ID pt will need Zosyn IV TID till 06/12/24.
Per [facility] liaison, pt will have $20.00 per each day co-pay for services and $71.78 per week for antibiotic co-pay and altogether will be $211.78 per week. CM spoke to the pt and his spouse and they are OK with co-pays.
CM spoke to [facility] liaison and she stated that [facility] will have RN available tomorrow 05/23/24 afternoon if pt will be discharged.
No PICC line information available yet.
Per chart review, pt failed video swallowing and ST recommend skilled services, medications via tube and thick liquid diet. Both pt and his spouse agree that pt's diet needs to be upgraded at discharge. CM discussed with with EDMUNDO Cross and MD.
Awaiting for MD recommendations. Per MD Neurology consulted.
Per [facility] office, PICC line information needs to be faxed to [facility] at [phone]. Per [facility] veterans employment representative [employer] they will be able to delivery medications to pt's home tomorrow if they are notified of pt's discharge today or
tomorrow morning. [facility] lia[facility] stated she will keep RN on schedule for tomorrow afternoon in case pt will be discharged tomorrow.
Per [facility] they will not be able to delivery medications on Saturday and at that point pt will need to be discharged on Saturday.
IMM reviewed, placed on chart, pt has a copy.
D/C plan: home with [facility] and family support when pt is medically stable.
CM will follow to continue coordinating pt's discharge with [facility], [facility]
[2024-05-22] MEDS: ASPIR LOW (ENTERIC COATED) 81 MG PO (13:40)
[2024-05-22] MEDS: ENTOCORT EC 3 MG PO (13:40)
[2024-05-22] MEDS: VITAMIN B-12 1000 MCG PO (13:40)
[2024-05-22] MEDS: PROTONIX 40 MG PO (13:40)
[2024-05-22 14:18] VITALS: BMI 18.7
[2024-05-22 15:25] VITALS: BP 130/77
[2024-05-22] MEDS: LOVENOX 40 MG SC (18:42)
[2024-05-22] MEDS: ATIVAN 1 MG PO (18:42)
[2024-05-22] MEDS: NEURONTIN 100 MG PO (18:42)
--- NOTE | 2024-05-22 21:24 | VATNOTE ---
Xray after first redirect positioned PICC line in axilla and bent upon itself. This RN spoke to radiologist and it was suggested to pull PICC back 6-8cm then redirect. PICC redirected for 2nd time. Awaiting portable CXR reading. Will continue to
monitor.
[2024-05-22] MEDS: MELATONIN 5 MG PO (22:03)
--- NOTE | 2024-05-22 22:54 | VATNOTE ---
PICC line still malpositioned after 2nd redirect. Unable to try for third redirect, IR will have to be consulted. This information was communicated to pt's primary nurse. Pt's RN will place do not use earth observations chief scientist PICC.
[2024-05-22 23:00] VITALS: BP 138/73
--- NOTE | 2024-05-22 23:38 | PTCARENOTE ---
PICC line unable to be used per IV Team. RAIL SIGNAL MECHANIC notified and IR consult placed for 05/23. PICC line labeled with Do Not Use.
[2024-05-23] MEDS: ZOSYN 50 IV ×4 (03:39→21:20)
[2024-05-23] MEDS: TYLENOL 650 MG PO (05:26)
[2024-05-23 05:41] LABS: Hematocrit 33.5 % (39.0-52.0); Hemoglobin 11.5 g/dL (13.0-18.0); Mean Corp Hgb Conc. 34.3 g/dL (33.0-37.0); Mean Corpuscular Hgb 30.4 pg (27.0-31.0); Mean Corpuscular Volume 88.6 fL (80.0-94.0); Mean Platelet Volume 8.7 fL (7.4-10.4); Platelet Count 645 10^3/uL (130-400); Red Blood Cell Count 3.78 10^6/uL (4.70-6.10); Red Cell Dist. Width 13.6 % (11.5-14.5); White Blood Cell Count 12.7 10^3/uL (4.8-10.8)
[2024-05-23 07:35] VITALS: BP 136/80
--- NOTE | 2024-05-23 09:16 | W.PN.HOSP.TC ---
Today's Communication/Plan
-
see bold
Assessment / Plan
Assessment / Plan
Community-acquired pneumonia involving the right lung and complicated by empyema. S/P chest tube placement and Intra pleural tPA with significant output and improvement of the pleural effusion. So far culture from the fluid is negative. Cytology
neg for malignancy.
Decreasing CT output. Appreciate pulmonology input, chest tube removed 05/20, pulmonology signed off.
Neg blood cultures so far; Legionella Ag neg
Chest CT noted. Status post cefepime, then meropenem/Doxy, now on Zosyn as per ID
Cleared by ID for discharge Zosyn until seen by ID in the office
PICC inserted 05/22
Dysphagia -05/22/24 VSE shows aspiration with thin liquids, deeply penetrated nectar liquids via straw, severe retention with pur�es. His dysphagia has worsened in 8 days since his last VSE on 05/13/24, that was neg for aspiration. SPL recommends
clear liquid diet with mildly thickened liquids, meds by nonoral means. Appreciate neurology input, rec Brain MRI, check vit B12/TSH, SPEP/IF. No driving. OP NCS/EMG with RNS
BMI 18.7 is not significant, continue protein supplement
Leukocytosis - significant elevation with thrombocytosis - no prior hx of myeloproliferative disorder. Treat pneumonia and follow white count. Improving.
Skin rash - less prominent in back now . unclear if related abx . Cefepime switched to Meropenem, now on Zosyn. Started triamcinolone ointment 3 times daily 05/18, continue Benadryl as needed
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
History of stroke�continue aspirin
DVT prophylaxis�subcu Lovenox
Full code
Updated at bedside 05/18
Updated on phone 05/19
Updated on phone 05/21
Updated at bedside 05/22
Updated at bedside 05/22
Total time spent to see the patient on the floor, examine the patient, review data and lab results, discuss treatment plan with patient, nursing staff around 52 minutes.
Physical Exam
General: No acute distress
HEENT: Normocephalic, Atraumatic, EOMI, MMM
Respiratory: Diminished breath sounds at the right lung base
Cardiac: Normal S1/S2, Regular Rate and Rhythm
GI: Soft, Nontender, Nondistended, Normal Bowel Sounds
Extremities: No Clubbing, Cyanosis, or Edema
Neuro: Nonfocal/Grossly Intact
Psych: Calm, Cooperative
Derm: Erythematous macules scattered all over back
.
Anticipated Discharge: 24 - 48 hours
Subjective/Interval History
-
Date of Service: May 23, 2024
Patient continues to have intermittent problems swallowing. No chest pain, no shortness of breath. No fever, no vomiting.
Objective Data
-
Labs:
Laboratory Results
05/23/24
05:21
WBC 12.7 H
Hgb 11.5 L
Hct 33.5 L
Plt Count 645 H
Vital Signs:
Vital Signs
Temp Pulse Resp BP Pulse Ox
98.3 F 67 18 136/80 96
05/23/24 07:35 05/23/24 07:35 05/23/24 07:35 05/23/24 07:35 05/22/24 23:00
I&O
05/22/24 05/23/24 05/24/24
06:59 06:59 06:59
Intake Total 720 / 720 1710 / 1710
Output Total 475 / 475 1900 / 1900
Balance 245 / 245 -190 / -190
--- NOTE | 2024-05-23 10:07 | CON.NEURO ---
Addendum entered and electronically signed by Leonarda Brothers MD 05/24/24 16:42:
Brain MRi wo julio césar(05/22/2024) showed inferior left temporal likely late subacute/chronic infarction.
Plan: TTE
-Continue ASA 81mg Qd
-Cardiology consult: Holter/ILR
Original Note:
Consultation
Order
Date of Consultation: 05/22/24
Requesting Provider: Geremias Peña MD
Reason for Consult: dysphagia
CC: none
HPI: This is a 78-year-old RH man who was admitted to [facility] on May 12, 2024 with malaise and was found to have right lower lobe heterogeneous attenuation and moderate pleural effusion.
Neurology consultation was requested for evaluation and management of dysphagia. According to patient's spouse Mr. David Goldman has had progressive non fluctuating dysphagia to liquids over the last 1-1/2 years. He was reportedly seen by ENT. No
reports of diplopia, sialorrhea. He has reportedly has had cognitive deficits for at least 1-2 years.
Brain MRI wo julio césar(06/08/2021) done for dizziness, weakness and memory loss showed mild diffuse atrophy and a small focus of hemosiderin deposition.
PMH: HTN, stroke, TBI, seizure DO?, BMI�18, dysphagia
PSH: C1-C2 laminectomy, chest tub(05/14/2024)
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
FH: Mother�coronary artery disease,
All:Oxcarbazepine, Keppra
ROS:Constitutional: positive for weight change.
HENT: Positive for dysphagia to liquids.
Eyes: Negative. Negative for photophobia, pain and visual disturbance.
Respiratory: Negative for cough, choking and shortness of breath.
Cardiovascular: Negative for chest pain, palpitations and leg swelling.
Gastrointestinal: Negative for abdominal pain and vomiting.
Endocrine: Negative. Negative for cold intolerance.
Genitourinary: Negative for dysuria, flank pain and urgency.
Musculoskeletal: positive for left side weakness
Skin: Negative for rash.
Allergic/Immunologic: Negative. Negative for immunocompromised state.
Neurological: Positive for cognitive deficits
General: Slim In no acute distress.
Cardio: Regular rate and rhythm without murmur. Extremities are without cyanosis or edema.
Neuro:
Mental Status: Alert, oriented to self, place, and date. Poor attention and recall. Follows simple requests. Nonfluent, no hemineglect.
Cranial Nerves: Unable to visualize optic discs due to insufficient dilatation. Pupils are equally round and reactive to light. EOMs full. Visual win full to confrontation. No ptosis. No nystagmus. V1-V3 intact to light touch and pinprick
bilaterally, symmetric. Face symmetric. Normal hearing AU. The palate elevated well. SCMs and traps 5/5. Tongue midline. Mild lingual/pharyngeal dysarthria.
Motor: Mo fasciculations, ataxic left hemiparesis
Reflexes: 3+ on the L
Sensory: absent vibration at the toes, ankles and reduced at the knees
Coordination: dysmetria on FTN on the left. Mild gen chorea?
Gait: deferred
Assessment and Plan:
I. Dysphagia to liquids
II. History of stroke and TBI
III. Multifactorial encephalopathy(posttraumatic, neurodegenerative?)
IV. Severe distal symmetric large fiber polyneuropathy
-Fall and aspiration precautions
-No driving
-Vit b12, TFTs, vit B12, SPEP/IF
-May consider paraneoplastic panel based on the above results
-Brain MRI without julio césar
-Polyneuropathy blood work
-OP NCS/EMG with RNS
-Please obtain medical records from [facility] for review
I personally reviewed all radiology and labs along with past medical records pertinent to current medical problems. Total time spent in patient care is 60 minutes.
Thank you for allowing us to participate in the care of this patient. We will continue to follow. Please do not hesitate to contact us with any questions or concerns.
Subjective/Objective
Subjective Data
Date of Service: May 23, 2024
Objective Data
Vital Signs
Temp Pulse Resp BP Pulse Ox
36.8 C 67 18 136/80 96
05/23/24 07:35 05/23/24 07:35 05/23/24 07:35 05/23/24 07:35 05/22/24 23:00
Lab Results
05/23/24 05:21
05/17/24 06:50
Sodium 139 mmol/L (135-145) 05/17/24 06:50
Potassium 4.5 mmol/L (3.5-5.1) 05/17/24 06:50
BUN 15 mg/dl (9-20) 05/17/24 06:50
Glucose 96 mg/dl (70-99) 05/17/24 06:50
Calcium 8.0 mg/dl (8.4-10.2) L 05/17/24 06:50
Patient Allergies
levetiracetam [From Keppra] Allergy (Verified 05/12/24 15:33)
Unknown
oxcarbazepine Allergy (Verified 05/12/24 15:33)
Unknown
Medications
-
Active Medications
Generic Name Dose Route Start Last Admin
Trade Name Freq PRN Reason Stop Dose Admin
Acetaminophen 650 mg 05/14/24 16:38 05/23/24 05:26
Acetaminophen 325 Mg Tablet PO 06/09/24 20:10 650 mg
Q4HPRN PRN Administration
mild pain /fever>100.4 F
Al Hydrox/Mg Hydrox/Simethicone 15 ml 05/12/24 20:11
Mag/Al/Simethicone Suspension 30 Ml Cup PO 06/09/24 20:10
QIDPRN PRN
dyspepsia
Aspirin 81 mg 05/13/24 13:00 05/22/24 13:40
Aspirin 81 Mg (Enteric Coated) Tablet PO 06/10/24 12:59 81 mg
DAILY@1300 FRIDA Administration
Benzonatate 100 mg 05/12/24 20:11
Benzonatate 100 Mg Capsule PO 06/09/24 20:10
TIDPRN PRN
cough
Budesonide 3 mg 05/13/24 13:00 05/22/24 13:40
Budesonide 3 Mg Capsule PO 06/10/24 12:59 3 mg
DAILY@1300 FRIDA Administration
Cyanocobalamin 1,000 mcg 05/13/24 13:00 05/22/24 13:40
Cyanocobalamin 1,000 Mcg Tablet PO 06/10/24 12:59 1,000 mcg
DAILY@1300 FRIDA Administration
Diphenhydramine HCl 25 mg 05/16/24 15:17 05/18/24 01:41
Diphenhydramine 25 Mg Capsule PO 06/13/24 15:16 25 mg
Q4HPRN PRN Administration
itching
Docusate Sodium 100 mg 05/12/24 20:11
Docusate Sodium 100 Mg Capsule PO 06/09/24 20:10
BIDPRN PRN
constipation
Doxazosin Mesylate 1 mg 05/13/24 08:00 05/22/24 08:48
Doxazosin 1 Mg Tablet PO 06/10/24 07:59 1 mg
DAILY FRIDA Administration
Enoxaparin Sodium 40 mg 05/13/24 18:00 05/22/24 18:42
Enoxaparin Sodium 40 Mg/0.4 Ml Syringe SC 06/10/24 17:59 40 mg
QPM FRIDA Administration
Gabapentin 100 mg 05/12/24 20:11 05/22/24 18:42
Gabapentin 100 Mg Capsule PO 06/09/24 20:10 100 mg
QPM FRIDA Administration
Guaifenesin 1,200 mg 05/19/24 14:09 05/22/24 22:03
Guaifenesin 600 Mg Extended Release Tablet PO 06/09/24 20:10 1,200 mg
Q12 FRIDA Administration
Guaifenesin/Dextromethorphan 5 ml 05/12/24 20:11
Guaifenesin/Dextromethorphan 200 Mg/10 Ml Cup PO 06/09/24 20:10
Q6HPRN PRN
cough
Piperacillin Sod/Tazobactam Sod 3.375 gram in 50 mls @ 100 mls/hr 05/21/24 16:00 05/23/24 03:39
Zosyn IV 50 mls
Q6H FRIDA Administration
Dextrose/Sodium Chloride 1,000 mls @ 75 mls/hr 05/22/24 11:00 05/22/24 12:16
D5/0.9% Sodium Chloride IV 1,000 mls
.[id number] FRIDA Administration
Lacosamide 100 mg 05/12/24 21:00 05/22/24 22:03
Lacosamide (Vimpat) 100 Mg Tablet PO 06/09/24 20:59 100 mg
BID FRIDA Administration
Lorazepam 1 mg 05/12/24 21:00 05/22/24 18:42
Lorazepam 1 Mg Tablet PO 06/09/24 20:59 1 mg
QPM FRIDA Administration
Magnesium Hydroxide 30 ml 05/12/24 20:11
Milk Of Magnesia 30 Ml Cup PO 06/09/24 20:10
Q4HPRN PRN
constipation
Melatonin 5 mg 05/12/24 22:00 05/22/24 22:03
Melatonin 5 Mg Tablet PO 06/09/24 21:59 5 mg
HS FRIDA Administration
Pantoprazole Sodium 40 mg 05/13/24 13:00 05/22/24 13:40
Pantoprazole 40 Mg Delayed Release Tablet PO 06/10/24 12:59 40 mg
DAILY@1300 FRIDA Administration
Sodium Chloride 0 flush 05/12/24 21:00
Sodium Chloride 0.9% (Flush) Syringe IV 06/09/24 20:59
PER PROTOCOL FRIDA
Triamcinolone Acetonide 0 applic 05/18/24 10:45 05/22/24 22:34
Triamcinolone Acetonide 0.1% (Ointment) 15 Gram Tube TOPICAL 06/15/24 10:44 1 applic
TID FRIDA Administration
Home Medications
�Medication �Instructions �Recorded
aspirin 81 mg tablet,delayed 81 mg PO DAILY@1300 05/12/24
release
budesonide 3 mg 3 mg PO DAILY@1300 05/12/24
capsule,delayed,extended release
cyanocobalamin (vitamin B-12) 1,000 mcg PO DAILY@1300 05/12/24
1,000 mcg tablet
doxazosin 1 mg tablet 1 mg PO DAILY 05/12/24
gabapentin 100 mg capsule 100 mg PO QPM 05/12/24
lacosamide 100 mg tablet 100 mg PO BID 05/12/24
lorazepam 1 mg tablet 1 mg PO QPM 05/12/24
omeprazole 40 mg capsule,delayed 40 mg PO DAILY@1300 05/12/24
release
Vital Signs and Labs
-
Vital Signs and Labs:
Vital Signs
Temp Pulse Resp BP Pulse Ox
36.8 C 67 18 136/80 96
05/23/24 07:35 05/23/24 07:35 05/23/24 07:35 05/23/24 07:35 05/22/24 23:00
Lab Results
05/23/24 05:21
05/17/24 06:50
Sodium 139 mmol/L (135-145) 05/17/24 06:50
Potassium 4.5 mmol/L (3.5-5.1) 05/17/24 06:50
BUN 15 mg/dl (9-20) 05/17/24 06:50
Glucose 96 mg/dl (70-99) 05/17/24 06:50
Calcium 8.0 mg/dl (8.4-10.2) L 05/17/24 06:50
Medications
-
Medications:
Generic Name Dose Route Start Last Admin
Trade Name Freq PRN Reason Stop Dose Admin
Acetaminophen 650 mg 05/14/24 16:38 05/23/24 05:26
Acetaminophen 325 Mg Tablet PO 06/09/24 20:10 650 mg
Q4HPRN PRN Administration
mild pain /fever>100.4 F
Al Hydrox/Mg Hydrox/Simethicone 15 ml 05/12/24 20:11
Mag/Al/Simethicone Suspension 30 Ml Cup PO 06/09/24 20:10
QIDPRN PRN
dyspepsia
Aspirin 81 mg 05/13/24 13:00 05/22/24 13:40
Aspirin 81 Mg (Enteric Coated) Tablet PO 06/10/24 12:59 81 mg
DAILY@1299 FRIDA Administration
Benzonatate 100 mg 05/12/24 20:11
Benzonatate 100 Mg Capsule PO 06/09/24 20:10
TIDPRN PRN
cough
Budesonide 3 mg 05/13/24 13:00 05/22/24 13:40
Budesonide 3 Mg Capsule PO 06/10/24 12:59 3 mg
DAILY@1299 FRIDA Administration
Cyanocobalamin 1,000 mcg 05/13/24 13:00 05/22/24 13:40
Cyanocobalamin 1,000 Mcg Tablet PO 06/10/24 12:59 1,000 mcg
DAILY@1300 FRIDA Administration
Diphenhydramine HCl 25 mg 05/16/24 15:17 05/18/24 01:41
Diphenhydramine 25 Mg Capsule PO 06/13/24 15:16 25 mg
Q4HPRN PRN Administration
itching
Docusate Sodium 100 mg 05/12/24 20:11
Docusate Sodium 100 Mg Capsule PO 06/09/24 20:10
BIDPRN PRN
constipation
Doxazosin Mesylate 1 mg 05/13/24 08:00 05/22/24 08:48
Doxazosin 1 Mg Tablet PO 06/10/24 07:59 1 mg
DAILY FRIDA Administration
Enoxaparin Sodium 40 mg 05/13/24 18:00 05/22/24 18:42
Enoxaparin Sodium 40 Mg/0.4 Ml Syringe SC 06/10/24 17:59 40 mg
QPM FRIDA Administration
Gabapentin 100 mg 05/12/24 20:11 05/22/24 18:42
Gabapentin 100 Mg Capsule PO 06/09/24 20:10 100 mg
QPM FRIDA Administration
Guaifenesin 1,200 mg 05/19/24 14:09 05/22/24 22:03
Guaifenesin 600 Mg Extended Release Tablet PO 06/09/24 20:10 1,200 mg
Q12 FRIDA Administration
Guaifenesin/Dextromethorphan 5 ml 05/12/24 20:11
Guaifenesin/Dextromethorphan 200 Mg/10 Ml Cup PO 06/09/24 20:10
Q6HPRN PRN
cough
Piperacillin Sod/Tazobactam Sod 3.375 gram in 50 mls @ 100 mls/hr 05/21/24 16:00 05/23/24 03:39
Zosyn IV 50 mls
Q6H FRIDA Administration
Dextrose/Sodium Chloride 1,000 mls @ 75 mls/hr 05/22/24 11:00 05/22/24 12:16
D5/0.9% Sodium Chloride IV 1,000 mls
.[id number] FRIDA Administration
Lacosamide 100 mg 05/12/24 21:00 05/22/24 22:03
Lacosamide (Vimpat) 100 Mg Tablet PO 06/09/24 20:59 100 mg
BID FRIDA Administration
Lorazepam 1 mg 05/12/24 21:00 05/22/24 18:42
Lorazepam 1 Mg Tablet PO 06/09/24 20:59 1 mg
QPM FRIDA Administration
Magnesium Hydroxide 30 ml 05/12/24 20:11
Milk Of Magnesia 30 Ml Cup PO 06/09/24 20:10
Q4HPRN PRN
constipation
Melatonin 5 mg 05/12/24 22:00 05/22/24 22:03
Melatonin 5 Mg Tablet PO 06/09/24 21:59 5 mg
HS FRIDA Administration
Pantoprazole Sodium 40 mg 05/13/24 13:00 05/22/24 13:40
Pantoprazole 40 Mg Delayed Release Tablet PO 06/10/24 12:59 40 mg
DAILY@1300 FRIDA Administration
Sodium Chloride 0 flush 05/12/24 21:00
Sodium Chloride 0.9% (Flush) Syringe IV 06/09/24 20:59
PER PROTOCOL FRIDA
Triamcinolone Acetonide 0 applic 05/18/24 10:45 05/22/24 22:34
Triamcinolone Acetonide 0.1% (Ointment) 15 Gram Tube TOPICAL 06/15/24 10:44 1 applic
TID FRIDA Administration
Home Medications
-
Home Medications
aspirin 81 mg tablet,delayed release 81 mg PO DAILY@1300 05/12/24
budesonide 3 mg capsule,delayed,extended release 3 mg PO DAILY@1300 05/12/24
cyanocobalamin (vitamin B-12) 1,000 mcg tablet 1,000 mcg PO DAILY@1300 05/12/24
doxazosin 1 mg tablet 1 mg PO DAILY 05/12/24
gabapentin 100 mg capsule 100 mg PO QPM 05/12/24
lacosamide 100 mg tablet 100 mg PO BID 05/12/24
lorazepam 1 mg tablet 1 mg PO QPM 05/12/24
omeprazole 40 mg capsule,delayed release 40 mg PO DAILY@1300 05/12/24
[2024-05-23] MEDS: MUCINEX 1200 MG PO (10:39)
[2024-05-23] MEDS: CARDURA 1 MG PO (10:39)
[2024-05-23] MEDS: VIMPAT 100 MG PO (10:43)
[2024-05-23] MEDS: TRIAMCINOLONE 0.1% OINTMENT 1 APPLIC TOPICAL ×2 (10:43→21:27)
[2024-05-23] MEDS: FLUSH (NSS) 1 FLUSH IV (10:44)
--- NOTE | 2024-05-23 11:00 | PTCARENOTE ---
Pt having difficulty swallowing mucinex with thickened fluid. Discussed with Dr. Yolande Peña and she will change to liquid as well as change meds that she can to IV. Maintaining Aspiration Precautions. Discussed with pt and pt's at bedside.
--- NOTE | 2024-05-23 11:29 | VATNOTE ---
Right PICC line redirected. Brisk blood return obtained. Flushed easily with 10 mls NSS. Repeat chest xray ordered.
[2024-05-23] MEDS: D5/0.9% SODIUM CHLORIDE 1000 IV (12:08)
[2024-05-23 13:06] LABS: Creatine Phosphokinase 52 U/L (55-170)
[2024-05-23 13:58] LABS: Vitamin B12 > 1000 pg/ml (239-931)
[2024-05-23] MEDS: PROTONIX IV 40 MG IV (14:50)
[2024-05-23] MEDS: ENTOCORT EC 3 MG PO (14:50)
[2024-05-23] MEDS: NSS (PRESERVATIVE FREE) 10 ML IV (14:51)
[2024-05-23] MEDS: ROBITUSSIN 200 MG PO ×3 (14:51→21:20)
[2024-05-23 15:10] VITALS: BP 155/81
--- NOTE | 2024-05-23 16:28 | W.PN.ID1 ---
Date of Service
Date of Service: May 23, 2024
Today's Communication
Continue Zosyn.
Assessment / Plan
Right lower lobe pneumonia
Pleural effusion vs. empyema
- cultures negative thus far
Dysphagia/aspiration
Marked leukocytosis
- trending down
Anemia
Thrombocytosis
- suspect reactive
Reported rash.
- Not clear whether this is secondary to antibiotics, or if this is a contact of rash (would favor the latter)
CVA
HTN
Seizure disorder
Hx TBI
Recommendations:
Patient previously reports rash with cefepime, limiting antibiotic selection.
Patient tentatively for discharge to home, and would be administering IV antibiotics.
Continue Zosyn.
Aspiration precaution
Follow-up with Dr. Puga in the office in 2 to 3 weeks.
����������������������������������������������������������
Chief Complaint
-: Pneumonia (Suspected empyema)
Subjective / Review of Systems
Trying to expectorate secretions.
Vital Signs / Physical Exam
Vital Signs
Vital Signs
Temp Pulse Resp BP Pulse Ox
98.3 F 69 18 136/73 95
05/23/24 07:35 05/23/24 10:39 05/23/24 07:35 05/23/24 10:39 05/23/24 08:00
Physical Exam
Constitutional: Cachetic
Pulmonary: Other (decreased airway movement bilaterally; coughing up phlegm)
Gastrointestinal: Soft, Non Tender and Non Distended
Neurological: AO x 3
Objective Data
Lab Data
Lab Results
05/23/24 05:21
05/17/24 06:50
Estimated Creat Clear 65 ml/min 05/17/24 06:50
Lactic Acid 1.9 mmol/L (0.7-2.0) 05/12/24 17:01
Total Bilirubin 0.7 mg/dl (0.2-1.3) 05/12/24 15:36
AST 33 U/L (17-59) 05/12/24 15:36
ALT 37 U/L (0-50) 05/12/24 15:36
Alkaline Phosphatase 114 U/L (38-126) 05/12/24 15:36
Most recent labs reviewed.
Micro Results:
05/12/24 17:01 Blood Culture - Final
Blood/Venous No Growth - Final Report
05/12/24 17:01 Blood Culture - Final
Blood/Venous No Growth - Final Report
05/13/24 11:58 Body Fluid Culture - Final
Pleural Fluid No Growth After 72 Hours
Gram Stain - Final
05/13/24 07:41 Respiratory Culture - Final
Sputum Usual Respiratory Noemi
Gram Stain - Final
05/13/24 20:52 MRSA Screen - Final
Nose No Methicillin Resistant Staphylococcus aureus isolated.
05/13/24 05:32 Legionella Urinary Antigen - Final
Urine Negative for Legionella pneumophila Serogroup 1 antigen.
A negative result does not rule out the possiblity of
Legionella infection due to other serogroups or species of
Legionella. Clinical correlation is recommended.
05/12/24 15:36 Influenza Types A & B (KRISTYN) - Final
Nasal Swab Negative for Influenza A & B, NAAT
Negative results must be combined with clinical observations
and patient history.
Nucleic Acid Amplification test (NAAT)performed on the
[employer] platform.
Imaging:
05/13/2024 CXR (portable): Persistent moderate loculated right-sided pleural effusion with adjacent atelectasis. No visible pneumothorax.
05/12/2024 CT chest with contrast: Moderate to large lobulated right pleural effusion, possibly partially loculated, new in the interval since the comparison CT of 2020. Accompanying somewhat rounded/oblong shaped area of heterogeneous slight
decreased attenuation in the right lower lobe measuring approximately 5 cm. Differential diagnostic possibilities include infectious process (such as pneumonia) or mass/tumor. Please see full dictation for additional detail. Film personally
reviewed.
[2024-05-23] MEDS: TRIAMCINOLONE 0.1% OINTMENT TOPICAL (17:40)
[2024-05-23] MEDS: LOVENOX 40 MG SC (17:41)
[2024-05-23 19:20] VITALS: BP 142/73
[2024-05-23] MEDS: VIMPAT 100 MG IV (20:28)
[2024-05-23 23:20] VITALS: BP 117/69
[2024-05-24] MEDS: D5/0.9% SODIUM CHLORIDE 1000 IV ×2 (00:40→14:26)
[2024-05-24] MEDS: ZOSYN 50 IV ×4 (04:17→21:40)
[2024-05-24 07:17] VITALS: BP 163/83
[2024-05-24] MEDS: D5/0.9% SODIUM CHLORIDE IV (07:44)
[2024-05-24] MEDS: PROTONIX IV 40 MG IV (07:45)
[2024-05-24] MEDS: VIMPAT 100 MG IV ×2 (07:45→19:55)
[2024-05-24] MEDS: NSS (PRESERVATIVE FREE) 10 ML IV (07:49)
[2024-05-24] MEDS: FLUSH (NSS) 3 FLUSH IV (07:50)
[2024-05-24] MEDS: TRIAMCINOLONE 0.1% OINTMENT 1 APPLIC TOPICAL (07:55)
[2024-05-24] MEDS: ROBITUSSIN PO (07:56)
--- NOTE | 2024-05-24 08:42 | W.PN.HOSP.TC ---
Today's Communication/Plan
-
see bold
Assessment / Plan
Assessment / Plan
Community-acquired pneumonia involving the right lung and complicated by empyema. S/P chest tube placement and Intra pleural tPA with significant output and improvement of the pleural effusion. So far culture from the fluid is negative. Cytology
neg for malignancy.
Decreasing CT output. Appreciate pulmonology input, chest tube removed 05/20, pulmonology signed off.
Neg blood cultures so far; Legionella Ag neg
Chest CT noted. Status post cefepime, then meropenem/Doxy, now on Zosyn as per ID
Cleared by ID for discharge Zosyn until seen by ID in the office
PICC inserted 05/22
Dysphagia -05/22/24 VSE shows aspiration with thin liquids, deeply penetrated nectar liquids via straw, severe retention with pur�es. His dysphagia has worsened in 8 days since his last VSE on 05/13/24, that was neg for aspiration. SPL recommends
clear liquid diet with mildly thickened liquids, meds by nonoral means. Currently tolerating diet. Appreciate neurology input, rec Brain MRI, SPEP/IF pending. B12 normal. No driving. OP NCS/EMG with RNS. Continue SPL therapy
BMI 18.7 is not significant, continue protein supplement
Leukocytosis - significant elevation with thrombocytosis - no prior hx of myeloproliferative disorder. Treat pneumonia and follow white count. Improving.
Skin rash - less prominent in back now . unclear if related abx . Cefepime switched to Meropenem, now on Zosyn. Resolved s/p triamcinolone ointment 3 times daily, continue Benadryl as needed
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
History of stroke�continue aspirin
DVT prophylaxis�subcu Lovenox
Full code
Updated at bedside 05/24
Total time spent to see the patient on the floor, examine the patient, review data and lab results, discuss treatment plan with patient, nursing staff around 50 minutes.
Physical Exam
General: No acute distress
HEENT: Normocephalic, Atraumatic, EOMI, MMM
Respiratory: Diminished breath sounds at the right lung base
Cardiac: Normal S1/S2, Regular Rate and Rhythm
GI: Soft, Nontender, Nondistended, Normal Bowel Sounds
Extremities: No Clubbing, Cyanosis, or Edema
Neuro: Nonfocal/Grossly Intact
Psych: Calm, Cooperative
Derm: Erythematous macules scattered all over back
.
Anticipated Discharge: 24 - 48 hours
Subjective/Interval History
-
Date of Service: May 24, 2024
Denies chest pain, denies shortness of breath. Itching on back has resolved. No coughing or choking with his liquid diet. No fever, no vomiting.
Objective Data
-
Vital Signs:
Vital Signs
Temp Pulse Resp BP Pulse Ox
98.2 F 73 16 163/83 95
05/24/24 07:17 05/24/24 07:17 05/24/24 07:17 05/24/24 07:17 05/24/24 08:05
I&O
05/23/24 05/24/24 05/25/24
06:59 06:59 06:59
Intake Total 1710 / 1710 3770 / 3770
Output Total 1900 / 1900 2225 / 2225
Balance -190 / -190 1545 / 1545
[2024-05-24 11:21] VITALS: BP 152/79
[2024-05-24] MEDS: ROBITUSSIN 200 MG PO ×3 (13:16→21:40)
[2024-05-24] MEDS: ENTOCORT EC 3 MG PO (13:16)
[2024-05-24 15:46] VITALS: BP 150/76
[2024-05-24] MEDS: LOVENOX 40 MG SC (17:25)
[2024-05-24 18:15] LABS: LDL Cholesterol, Direct 69 mg/dl
[2024-05-24 19:00] VITALS: BP 120/75
[2024-05-24 23:00] VITALS: BP 160/78
[2024-05-25 03:00] VITALS: BP 155/81
[2024-05-25] MEDS: D5/0.9% SODIUM CHLORIDE 1000 IV ×2 (03:48→18:40)
[2024-05-25] MEDS: ZOSYN 50 IV ×4 (03:48→22:04)
[2024-05-25 08:17] LABS: Hematocrit 33.5 % (39.0-52.0); Hemoglobin 11.5 g/dL (13.0-18.0); Mean Corp Hgb Conc. 34.3 g/dL (33.0-37.0); Mean Corpuscular Hgb 30.7 pg (27.0-31.0); Mean Corpuscular Volume 89.6 fL (80.0-94.0); Mean Platelet Volume 8.8 fL (7.4-10.4); Platelet Count 567 10^3/uL (130-400); Red Blood Cell Count 3.74 10^6/uL (4.70-6.10); White Blood Cell Count 12.2 10^3/uL (4.8-10.8)
[2024-05-25 08:24] VITALS: BP 164/84
[2024-05-25 08:52] LABS: Blood Urea Nitrogen 6 mg/dl (9-20); Calcium 8.5 mg/dl (8.4-10.2); Carbon Dioxide 28 mmol/L (22-30); Chloride 105 mmol/L (98-107); Estimated Creatinine Clearance 64 ml/min; Glucose 105 mg/dl (70-99); Potassium 4.3 mmol/L (3.5-5.1); Sodium 140 mmol/L (135-145); eGFR > 60.00
[2024-05-25 09:10] LABS: TSH Reflex To Free T4 1.55 uIU/ml (0.47-4.68)
--- NOTE | 2024-05-25 09:45 | CARDSERVLU ---
Echocardiogram with Lumason completed after protocol screening completed. Allergies verified.
Patent IV site: Rt AC
IV site flushed with 0.9% NaCl pre and post administration.
Diluted bolus method utilized to enhance visualization of ventricular tejada.
Total volume given: _3__ mL
Patient tolerated all procedures well without complications.
[2024-05-25] MEDS: NSS (PRESERVATIVE FREE) 10 ML IV (10:33)
[2024-05-25] MEDS: VIMPAT 100 MG IV ×2 (10:34→20:14)
[2024-05-25] MEDS: PROTONIX IV 40 MG IV (10:34)
[2024-05-25] MEDS: ROBITUSSIN PO ×3 (10:37→23:23)
[2024-05-25 11:02] LABS: Glycohemoglobin (HgbA1c) 6.4 % (4.0-5.6)
[2024-05-25 11:48] VITALS: BP 134/79
--- NOTE | 2024-05-25 13:13 | W.PN.ID1 ---
Date of Service
Date of Service: May 25, 2024
Today's Communication
Continue antibiotics
Assessment / Plan
Right lower lobe pneumonia
Pleural effusion vs. empyema
- cultures negative
Dysphagia/aspiration
Marked leukocytosis
- trending down
Anemia
Thrombocytosis
- suspect reactive
Reported rash.
- Not clear whether this is secondary to antibiotics, or if this is a contact of rash (would favor the latter)
- resolved
CVA
HTN
Seizure disorder
Hx TBI
Recommendations:
Patient previously reports rash with cefepime, limiting antibiotic selection.
Continue current course of Zosyn.
Aspiration precaution
Office follow-up in 2 to 3 weeks.
����������������������������������������������������������
Chief Complaint
-: Pneumonia (Suspected empyema)
Subjective / Review of Systems
Patient seen and examined. at the bedside. Notes some ongoing cough which occasionally is productive. No shortness of breath.
Review of Systems: No Fever
Vital Signs / Physical Exam
Vital Signs
Vital Signs
Temp Pulse Resp BP Pulse Ox
98.3 F 68 18 134/79 95
05/25/24 11:48 05/25/24 11:48 05/25/24 11:48 05/25/24 11:48 05/25/24 11:48
Physical Exam
Constitutional: Cachetic
Eyes: Sclera Anicteric
Cardiovascular: S1/S2; Negative S3/S4
Pulmonary: Non Labored and Other (decreased airway movement bilaterally; coughing up phlegm)
Gastrointestinal: Soft, Non Tender and Non Distended
Neurological: Awake, Alert and AO x 3
Objective Data
Lab Data
Lab Results
05/25/24 08:02
05/25/24 08:02
Estimated Creat Clear 64 ml/min 05/25/24 08:02
Lactic Acid 1.9 mmol/L (0.7-2.0) 05/12/24 17:01
Total Bilirubin 0.7 mg/dl (0.2-1.3) 05/12/24 15:36
AST 33 U/L (17-59) 05/12/24 15:36
ALT 37 U/L (0-50) 05/12/24 15:36
Alkaline Phosphatase 114 U/L (38-126) 05/12/24 15:36
Most recent labs reviewed.
Micro Results:
05/12/24 17:01 Blood Culture - Final
Blood/Venous No Growth - Final Report
05/12/24 17:01 Blood Culture - Final
Blood/Venous No Growth - Final Report
05/13/24 11:58 Body Fluid Culture - Final
Pleural Fluid No Growth After 72 Hours
Gram Stain - Final
05/13/24 07:41 Respiratory Culture - Final
Sputum Usual Respiratory Noemi
Gram Stain - Final
05/13/24 20:52 MRSA Screen - Final
Nose No Methicillin Resistant Staphylococcus aureus isolated.
05/13/24 05:32 Legionella Urinary Antigen - Final
Urine Negative for Legionella pneumophila Serogroup 1 antigen.
A negative result does not rule out the possiblity of
Legionella infection due to other serogroups or species of
Legionella. Clinical correlation is recommended.
05/12/24 15:36 Influenza Types A & B (KRISTYN) - Final
Nasal Swab Negative for Influenza A & B, NAAT
Negative results must be combined with clinical observations
and patient history.
Nucleic Acid Amplification test (NAAT)performed on the
[employer] platform.
Imaging:
05/13/2024 CXR (portable): Persistent moderate loculated right-sided pleural effusion with adjacent atelectasis. No visible pneumothorax.
05/12/2024 CT chest with contrast: Moderate to large lobulated right pleural effusion, possibly partially loculated, new in the interval since the comparison CT of 2020. Accompanying somewhat rounded/oblong shaped area of heterogeneous slight
decreased attenuation in the right lower lobe measuring approximately 5 cm. Differential diagnostic possibilities include infectious process (such as pneumonia) or mass/tumor. Please see full dictation for additional detail. Film personally
reviewed.
[2024-05-25] MEDS: ENTOCORT EC 3 MG PO (14:39)
[2024-05-25] MEDS: ROBITUSSIN 200 MG PO (14:40)
--- NOTE | 2024-05-25 15:43 | W.PN.NEURO.1 ---
Documented by User: Diana Apodaca NP 05/25/24 15:53
Today's Communication / Plan
-
.
Neuro Assessment/Plan
Assessment
This is a 78-year-old RH man who was admitted to [facility] on May 12, 2024 with malaise and was found to have right lower lobe heterogeneous attenuation and moderate pleural effusion.
Neurology consultation was requested for evaluation and management of dysphagia. According to patient's spouse Mr. David Goldman has had progressive non fluctuating dysphagia to liquids over the last 1-1/2 years. He was reportedly seen by ENT. No
reports of diplopia, sialorrhea. He has reportedly has had cognitive deficits for at least 1-2 years.
-MRI brain 05/22/24: No abnormal diffusion signal to suggest acute or subacute infarction. There is a small focus of encephalomalacia with cortical laminar necrosis along the inferior left temporal lobe which is new from 2020 and likely late
subacute/chronic infarction. Mild atrophy with sequelae of mild small vessel ischemic disease and prior anterior left frontal lobe microhemorrhage.
I. Dysphagia to liquids. MRI brain negative for acute stroke.
II. History of stroke, TBI, seizure.
III. Multifactorial encephalopathy(posttraumatic, neurodegenerative?)
IV. Severe distal symmetric large fiber polyneuropathy
Plan
-Continue aspirin 81mg daily for stroke prevention.
-Fall and aspiration precautions
-LDL goal <70. LDL is 69. Reasonable to hold off on starting statin therapy as LDL is at goal.
-Goal normoglycemia, hbA1c is 6.4.
-SPEP/IF pending.
-May consider paraneoplastic panel based on the above results
-Polyneuropathy blood work
-OP NCS/EMG with RNS
-Consider outpatient testing of myasthenia antibodies.
-Patient should follow-up with Neurology as an outpatient, may see the BALANCING MACHINE OPERATOR or one of the physicians.
Subjective/Objective
Subjective Data
Date of Service: May 25, 2024
No acute events overnight. Reports ongoing excessive saliva and swallowing difficulty. Denies headache, dizziness, vision change, speech difficulty, numbness, weakness, chest pain, palpitations, and shortness of breath.
Objective Data
Vital Signs
Temp Pulse Resp BP Pulse Ox
98.3 F 68 18 134/79 95
05/25/24 11:48 05/25/24 11:48 05/25/24 11:48 05/25/24 11:48 05/25/24 11:48
Lab Results
05/25/24 08:02
05/25/24 08:02
Sodium 140 mmol/L (135-145) 05/25/24 08:02
Potassium 4.3 mmol/L (3.5-5.1) 05/25/24 08:02
BUN 6 mg/dl (9-20) L 05/25/24 08:02
Glucose 105 mg/dl (70-99) H 05/25/24 08:02
Calcium 8.5 mg/dl (8.4-10.2) 05/25/24 08:02
LDL Cholesterol Direct 69 mg/dl 05/24/24 17:32
Vitamin B12 > 1000 pg/ml (239-931) H 05/23/24 12:06
Patient Allergies
levetiracetam [From [facility]] Allergy (Verified 05/12/24 15:33)
Unknown
oxcarbazepine Allergy (Verified 05/12/24 15:33)
Unknown
Review of Systems
-
History Source: Patient
EENT: Swallowing Difficulty; Negative Blurry Vision or Decreased Vision
Respiratory: Negative Cough or Trouble Breathing
Cardiac: Negative Chest Pain or Palpitations
Abdomen/GI: Negative Nausea
Neuro: Negative Dizzy, Headache, Weakness, Numbness, Ataxia, Tremors or Speech Problem
Physical Exam
-
General: No Apparent Distress
Eyes: No Ptosis and PERRLA
HEENT: Normocephalic and Atraumatic
Neck: Full Range of Motion
Respiratory: No Dyspnea
GI: Non-distended
Extremities: No Clubbing, No Cyanosis and No Edema
Psych: Unremarkable
Extended Neurological Exam
Mood & Affect: Mood Unremarkable and Affect Unremarkable
Attention Span & Concentration: Awake, Alert and Interactive
Memory: Unremarkable (AAOx3) and Able to Recall
Tremor: Hand Tremor Absent and Head Tremor Absent
Involuntary Movement: None
Speech: Dysarthric
Cranial Nerve II: Left Eye: Pupillary Reactivity Unremarkable, Pupillary Size Unremarkable and Visual Muhammad Intact
Cranial Nerve II: Right Eye: Pupillary Reactivity Unremarkable, Pupillary Size Unremarkable and Visual Muhammad Intact
Cranial Nerves III, IV, : Extraocular Movement: Extraocular Movement Full in all Directions
Cranial Nerve V: Facial Sensation: Intact to Light Touch
Cranial Nerve VII: Facial Symmetry: Normal Facial Symmetry
Cranial Nerve VIII: Hearing: Unremarkable Hearing to Normal Conversational Volume
Cranial Nerves IX, X: Palate Movement: Palate Elevation Symmetric
Cranial Nerve XI: Shoulder Shrug: Unremarkable
Cranial Nerve XII: Tongue Protusion: Midline
Muscle Strength, Overall: Full Throughout
Muscle Bulk & Tone: Bulk Unremarkable and Tone Unremarkable
Pronator Drift: No Drift in Upper Extremities and No Drift in Lower Extremities
Cold Sensation: Reduced Severely Distally
Vibration Sensation: Unremarkable
Touch Sensation: Double Simultaneous Stimulation Unremarkable
Coordination: [id number] Testing Unremarkable
Babinski Sign: Absent Bilaterally
Modified Weld Score (MRS)
-
Modified Weld Scale (mRS): No symptoms
Score: 0
Data Reviewed
-
MRI Head: Report Reviewed and Image Reviewed
Labs: Report Reviewed
Lipid Profile: Report Reviewed
HgbA1C: Report Reviewed
Reviewed with: Physician and Patient
Medications
-
Active Medications
Generic Name Dose Route Start Last Admin
Trade Name Freq PRN Reason Stop Dose Admin
Acetaminophen 650 mg 05/14/24 16:38 05/23/24 05:26
Acetaminophen 325 Mg Tablet PO 06/09/24 20:10 650 mg
Q4HPRN PRN Administration
mild pain /fever>100.4 F
Al Hydrox/Mg Hydrox/Simethicone 15 ml 05/12/24 20:11
Mag/Al/Simethicone Suspension 30 Ml Cup PO 06/09/24 20:10
QIDPRN PRN
dyspepsia
Aspirin 81 mg 05/13/24 13:00 05/22/24 13:40
Aspirin 81 Mg (Enteric Coated) Tablet PO 06/10/24 12:59 81 mg
DAILY@1299 FRIDA Administration
Benzonatate 100 mg 05/12/24 20:11
Benzonatate 100 Mg Capsule PO 06/09/24 20:10
TIDPRN PRN
cough
Budesonide 3 mg 05/13/24 13:00 05/25/24 14:39
Budesonide 3 Mg Capsule PO 06/10/24 12:59 3 mg
DAILY@1299 FRIDA Administration
Cyanocobalamin 1,000 mcg 05/13/24 13:00 05/22/24 13:40
Cyanocobalamin 1,000 Mcg Tablet PO 06/10/24 12:59 1,000 mcg
DAILY@1299 FRIDA Administration
Diphenhydramine HCl 25 mg 05/16/24 15:17 05/18/24 01:41
Diphenhydramine 25 Mg Capsule PO 06/13/24 15:16 25 mg
Q4HPRN PRN Administration
itching
Docusate Sodium 100 mg 05/12/24 20:11
Docusate Sodium 100 Mg Capsule PO 06/09/24 20:10
BIDPRN PRN
constipation
Doxazosin Mesylate 1 mg 05/13/24 08:00 05/23/24 10:39
Doxazosin 1 Mg Tablet PO 06/10/24 07:59 1 mg
DAILY FRIDA Administration
Enoxaparin Sodium 40 mg 05/13/24 18:00 05/24/24 17:25
Enoxaparin Sodium 40 Mg/0.4 Ml Syringe SC 06/10/24 17:59 40 mg
QPM FRIDA Administration
Gabapentin 100 mg 05/12/24 20:11 05/22/24 18:42
Gabapentin 100 Mg Capsule PO 06/09/24 20:10 100 mg
QPM FRIDA Administration
Guaifenesin 1,200 mg 05/19/24 14:09 05/23/24 10:39
Guaifenesin 600 Mg Extended Release Tablet PO 06/09/24 20:10 1,200 mg
Q12 FRIDA Administration
Guaifenesin 200 mg 05/23/24 13:00 05/25/24 14:40
Guaifenesin Oral Solution (200 Mg/10 Ml) Cup PO 06/20/24 12:59 200 mg
QID FRIDA Administration
Guaifenesin/Dextromethorphan 5 ml 05/12/24 20:11
Guaifenesin/Dextromethorphan 200 Mg/10 Ml Cup PO 06/09/24 20:10
Q6HPRN PRN
cough
Piperacillin Sod/Tazobactam Sod 3.375 gram in 50 mls @ 100 mls/hr 05/21/24 16:00 05/25/24 11:17
Zosyn IV 50 mls
Q6H FRIDA Administration
Dextrose/Sodium Chloride 1,000 mls @ 75 mls/hr 05/22/24 11:00 05/25/24 03:48
D5/0.9% Sodium Chloride IV 1,000 mls
.[id number] FRIDA Administration
Lacosamide 100 mg 05/12/24 21:00 05/23/24 10:43
Lacosamide (Vimpat) 100 Mg Tablet PO 06/09/24 20:59 100 mg
BID FRIDA Administration
Lacosamide 100 mg 05/23/24 20:00 05/25/24 10:34
Lacosamide (10 Mg/Ml) 200 Mg/20 Ml Vial IV 06/06/24 19:59 100 mg
Q12H FRIDA Administration
Lorazepam 1 mg 05/12/24 21:00 05/22/24 18:42
Lorazepam 1 Mg Tablet PO 06/09/24 20:59 1 mg
QPM FRIDA Administration
Magnesium Hydroxide 30 ml 05/12/24 20:11
Milk Of Magnesia 30 Ml Cup PO 06/09/24 20:10
Q4HPRN PRN
constipation
Melatonin 5 mg 05/12/24 22:00 05/22/24 22:03
Melatonin 5 Mg Tablet PO 06/09/24 21:59 5 mg
HS FRIDA Administration
Pantoprazole Sodium 40 mg 05/13/24 13:00 05/22/24 13:40
Pantoprazole 40 Mg Delayed Release Tablet PO 06/10/24 12:59 40 mg
DAILY@1300 FRIDA Administration
Pantoprazole Sodium 40 mg 05/23/24 13:00 05/25/24 10:34
Pantoprazole Sodium 40 Mg/10 Ml Vial IV 06/20/24 12:59 40 mg
DAILY FRIDA Administration
Sodium Chloride 0 flush 05/12/24 21:00 05/24/24 07:50
Sodium Chloride 0.9% (Flush) Syringe IV 06/09/24 20:59 3 flush
PER PROTOCOL FRIDA Administration
Sodium Chloride 10 ml 05/23/24 13:00 05/25/24 10:33
Sodium Chloride 0.9% (Preservative Free) 10 Ml Vial IV 06/20/24 12:59 10 ml
DAILY FRIDA Administration
Home Medications
�Medication �Instructions �Recorded
aspirin 81 mg tablet,delayed 81 mg PO DAILY@1300 05/12/24
release
budesonide 3 mg 3 mg PO DAILY@1300 05/12/24
capsule,delayed,extended release
cyanocobalamin (vitamin B-12) 1,000 mcg PO DAILY@1300 05/12/24
1,000 mcg tablet
doxazosin 1 mg tablet 1 mg PO DAILY 05/12/24
gabapentin 100 mg capsule 100 mg PO QPM 05/12/24
lacosamide 100 mg tablet 100 mg PO BID 05/12/24
lorazepam 1 mg tablet 1 mg PO QPM 05/12/24
omeprazole 40 mg capsule,delayed 40 mg PO DAILY@1300 05/12/24
release
NIH Stroke Score
Subsequent NIH Scale
Date of Subsequent NIH Scale: 05/25/24
Time of Subsequent NIH Scale: 10:45
NIH Stroke Score
Level of Consciousness: 0 - Alert
LOC Questions: 0-Answers both correctly
LOC Commands: 0-Performs both correctly
Best Horizontal Gaze: 0-Normal
Visual Muhammad: 0=Normal, no visual loss
Facial Palsy: 0=Normal, symmetrical
Motor - Right Arm: 0=No drift 10 seconds
Motor - Left Arm: 0=No drift 10 seconds
Motor - Right Le-No drift 5 seconds
Motor - Left Le-No drift 5 seconds
Limb Ataxia: 0-Absent
Sensation: 0-Normal
Best Language: 0-No aphasia
Dysarthria: 1-Mild slurring
Extinction and Inattention: 0-No abnormality
Total Score:: 1
Modified Bunny (mRS) Score
Modified Weld Scale (mRS): No significant disability. Able to carry out usual activities.
Score: 1

Documented by User: Gualberto Cerrato MD 05/26/24 00:38
Today's Communication / Plan
-
78-year-old RH man with h/o TBI, recurrent TIA, seizures who was admitted to [facility] on May 12, 2024 with right lower lobe heterogeneous attenuation and moderate pleural effusion. who has been suffering from chronic dysphagia. Pat
reports progressive non fluctuating dysphagia to liquids over the last 1-2 years
PLAN: ENT eval
MRI brain
Mestinon 30 mg BID
Modified Weld Score (MRS)
-
Score: 0
NIH Stroke Score
NIH Stroke Score
Total Score:: 1
Modified Weld (mRS) Score
Score: 1
[2024-05-25 15:57] VITALS: BP 129/81
[2024-05-25] MEDS: LOVENOX 40 MG SC (16:30)
--- NOTE | 2024-05-25 16:35 | W.PN.HOSP.TC ---
Today's Communication/Plan
-
Speech to reeval
DC planning
Assessment / Plan
Assessment / Plan
Community-acquired pneumonia involving the right lung and complicated by empyema. S/P chest tube placement and Intra pleural tPA with significant output and improvement of the pleural effusion. So far culture from the fluid is negative. Cytology
neg for malignancy.
Decreasing CT output. Appreciate pulmonology input, chest tube removed 05/20, pulmonology signed off.
Neg blood cultures so far; Legionella Ag neg
Chest CT noted. Status post cefepime, then meropenem/Doxy, now on Zosyn as per ID
Cleared by ID for discharge Zosyn until seen by ID in the office
PICC inserted 05/22
Dysphagia -05/22/24 VSE shows aspiration with thin liquids, deeply penetrated nectar liquids via straw, severe retention with pur�es. His dysphagia has worsened in 8 days since his last VSE on 05/13/24, that was neg for aspiration. [facility] recommends
clear liquid diet with mildly thickened liquids, meds by nonoral means. Currently tolerating diet. Appreciate neurology input, rec Brain MRI, SPEP/IF pending. B12 normal. No driving. OP NCS/EMG with RNS. Continue SPL therapy
Check ACH-R ab
MRI brain shows subacute/chronic infarct. ECHO no acute findings or TE .
Speech to eval for solid diet intake
BMI 18.7 is not significant, continue protein supplement
Leukocytosis - significant elevation with thrombocytosis - no prior hx of myeloproliferative disorder. Treat pneumonia and follow white count. Improving.
Skin rash - less prominent in back now . unclear if related abx . Cefepime switched to Meropenem, now on Zosyn. Resolved s/p triamcinolone ointment 3 times daily, continue Benadryl as needed
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
History of stroke�continue aspirin
DVT prophylaxis�subcu Lovenox
Full code
Updated at bedside 05/25
.
Anticipated Discharge: Within 24 hours
Subjective/Interval History
-
Date of Service: May 25, 2024
Still on liquid diet.
Denies SOB or CP.
No fever or chills.
Objective Data
-
Labs:
Laboratory Results
05/25/24
08:02
WBC 12.2 H
Hgb 11.5 L
Hct 33.5 L
Plt Count 567 H
Sodium 140
Potassium 4.3
Chloride 105
Carbon Dioxide 28
BUN 6 L
Creatinine 0.8
Glucose 105 H
Calcium 8.5
Vital Signs:
Vital Signs
Temp Pulse Resp BP Pulse Ox
98.7 F 76 18 129/81 98
05/25/24 15:57 05/25/24 15:57 05/25/24 15:57 05/25/24 15:57 05/25/24 15:57
I&O
05/24/24 05/25/24 05/26/24
06:59 06:59 06:59
Intake Total 3770 / 3770 1490 / 1490
Output Total 2225 / 2225 1320 / 1320 600 / 600
Balance 1545 / 1545 170 / 170 -600 / -600
Review of Systems
-
Constitutional: Denies Fever
EENT: Denies Sore Throat
Abdomen/GI: Denies Abdominal Pain, Nausea or Vomiting
Neuro: Denies Dizzy
Physical Exam
-
General: Comfortable
Respiratory: Non Labored Respirations; Negative Accessory Resp Muscle Use
Cardiac: Regular Rhythm and S1/S2
Neuro: AO x 3
Data Reviewed
-
Labs: Labs Reviewed by me
[2024-05-25 19:00] VITALS: BP 153/79
[2024-05-25 22:10] LABS: ANA, IgG Reflex to HEp-2 Detected (None Detected)
[2024-05-25] MEDS: TYLENOL 650 MG PO (22:11)
[2024-05-25 23:00] VITALS: BP 146/81
[2024-05-26] VITALS (7 sets, daily range): BP systolic 117–161; BP diastolic 63–81; PULSE 78; O2SAT 96
[2024-05-26] MEDS: ZOSYN 50 IV ×4 (03:25→21:31)
--- NOTE | 2024-05-26 08:27 | VATNOTE ---
Upon routine rounds, pt's PICC line noted to have regular IV dressing barely covering BioPatch and stat lock. This RN spoke to pt's primary RN who also had him yesterday and she stated that dressing did not look like that yesterday on her shift.
Dressing most likely changed overnight, and not by a VAT RN. Dressing changed completely today in sterile fashion. Will continue to monitor.
--- NOTE | 2024-05-26 10:20 | W.PN.UPDATE ---
Documented by User: Diana Apodaca NP 05/26/24 10:21
Update Note
Progress Note Update
Spoke with patient about starting a Mestinon trial to see if this improves his symptoms. He would like to wait until the myasthenia antibody panel results come back before starting a medication. Provided him with Neurology office info to schedule
hospital follow-up.

Documented by User: Gualberto Cerrato MD 05/26/24 22:39
Update Note
Progress Note Update
Spoke with patient about starting a Mestinon trial to see if this improves his symptoms. He would like to wait until the myasthenia antibody panel results come back before starting a medication. Provided him with Neurology office info to schedule
hospital follow-up.
Neurology Attending Note:
78 yr. old male with h/o persistent dysphagia with MRI brain study without evidence of small vessel disease in brain
PLAN: Mestinon 30 mg BID
Speech therapy
[2024-05-26] MEDS: VIMPAT 100 MG IV ×2 (10:21→21:30)
[2024-05-26] MEDS: NSS (PRESERVATIVE FREE) 10 ML IV (10:22)
[2024-05-26] MEDS: PROTONIX IV 40 MG IV (10:22)
[2024-05-26] MEDS: ROBITUSSIN PO ×3 (10:23→21:31)
--- NOTE | 2024-05-26 13:04 | PTOTSP ---
Dysphagia Therapy
Patient requesting to eat solids despite known dysphagia and risks/complications. See patient care note for details.
Consider the following with patient/medical decision maker understanding risks/complications of aspiration:
1. IDDSI Level 4 Puree (thin down with liquids so not 'thick'), IDDSI Level 2 Mildly Thick Liquids via cup
2. Medications - crushed and mixed in mildly thick liquids
3. Oral care 3x daily
4. Strategies: supervision, single sips, avoid straw, double swallows and/or alternate sips/bites to help clear throat of food
5. Aspiration Risk Hydration Protocol - sparing ice chips after oral care with supervision
6. Dysphagia therapy at the acute care level and after D/C
--- NOTE | 2024-05-26 13:24 | W.PN.HOSP.TC ---
Addendum entered and electronically signed by Seun Rock MD 05/26/24 15:38:
Sepsis POA
Original Note:
Today's Communication/Plan
-
ENT eval
DC planning
Assessment / Plan
Assessment / Plan
Community-acquired pneumonia involving the right lung and complicated by empyema. S/P chest tube placement and Intra pleural tPA with significant output and improvement of the pleural effusion. So far culture from the fluid is negative. Cytology
neg for malignancy.
Decreasing CT output. Appreciate pulmonology input, chest tube removed 05/20, pulmonology signed off.
Neg blood cultures so far; Legionella Ag neg
Chest CT noted. Status post cefepime, then meropenem/Doxy, now on Zosyn as per ID
Cleared by ID for discharge Zosyn until seen by ID in the office
PICC inserted 05/22
Dysphagia -05/22/24 VSE shows aspiration with thin liquids, deeply penetrated nectar liquids via straw, severe retention with pur�es. His dysphagia has worsened in 8 days since his last VSE on 05/13/24, that was neg for aspiration.
SPEP/IF pending. B12 normal. No driving. OP NCS/EMG with RNS. Continue SPL therapy
Check ACH-R ab -pending
MRI brain reads says no acute infarct ;old encephalomalacia area in left temp lobe noted .ECHO no acute findings or TE .
cw diet per speech
ENT eval
BMI 18.7 is not significant, continue protein supplement
Leukocytosis - significant elevation with thrombocytosis - no prior hx of myeloproliferative disorder. Treat pneumonia and follow white count. Improving.
Skin rash - less prominent in back now . unclear if related abx . Cefepime switched to Meropenem, now on Zosyn. Resolved s/p triamcinolone ointment 3 times daily, continue Benadryl as needed
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
History of stroke�continue aspirin
DVT prophylaxis�subcu Lovenox
Full code
ENT eval and DC planning
.
Anticipated Discharge: Within 24 hours
Subjective/Interval History
-
Date of Service: May 26, 2024
patient seeing the benefit of bedside oral suction. He worked with the speech therapist and understanding the risks and still wanted to go ahead with pur�ed and mildly thick liquids.
Objective Data
-
Vital Signs:
Vital Signs
Temp Pulse Resp BP Pulse Ox
97.8 F 76 18 140/75 96
05/26/24 11:14 05/26/24 11:14 05/26/24 11:14 05/26/24 11:14 05/26/24 11:14
I&O
05/25/24 05/26/24 05/27/24
06:59 06:59 06:59
Intake Total 1490 / 1490
Output Total 1320 / 1320 600 / 600 800 / 800
Balance 170 / 170 -600 / -600 -800 / -800
Review of Systems
-
Respiratory: Denies Trouble Breathing
Cardiac: Denies Chest Pain
Abdomen/GI: Denies Abdominal Pain, Nausea or Vomiting
Neuro: Denies Dizzy
Physical Exam
-
General: Comfortable
Respiratory: Non Labored Respirations; Negative Accessory Resp Muscle Use
Cardiac: Regular Rhythm and S1/S2; Negative Tachycardic
Neuro: AO x 3
Psych: Calm
Data Reviewed
-
Labs: Labs Reviewed by me (Pending ACH receptor antibody)
[2024-05-26] MEDS: ROBITUSSIN 200 MG PO (14:36)
[2024-05-26] MEDS: ENTOCORT EC 3 MG PO (14:36)
--- NOTE | 2024-05-26 14:41 | W.PN.ID1 ---
Date of Service
Date of Service: May 26, 2024
Today's Communication
Continue antibiotics.
Assessment / Plan
Right lower lobe pneumonia
Pleural effusion vs. empyema
- cultures negative
Dysphagia/aspiration
Marked leukocytosis
- trending down
Anemia
Thrombocytosis
- suspect reactive
Reported rash.
- Not clear whether this is secondary to antibiotics, or if this is a contact of rash (would favor the latter)
- resolved
CVA
HTN
Seizure disorder
Hx TBI
Recommendations:
Continue current course of Zosyn.
Aspiration precaution
Office follow-up in 2 to 3 weeks.
����������������������������������������������������������
Chief Complaint
-: Pneumonia (Suspected empyema)
Subjective / Review of Systems
Review of Systems: No Fever, No Chills, Cough and Sputum Production
Vital Signs / Physical Exam
Vital Signs
Vital Signs
Temp Pulse Resp BP Pulse Ox
97.8 F 76 18 140/75 96
05/26/24 11:14 05/26/24 11:14 05/26/24 11:14 05/26/24 11:14 05/26/24 14:00
Physical Exam
Constitutional: No Acute Distress, Comfortable, Chronically Ill and Cachetic
Eyes: Sclera Anicteric
Cardiovascular: S1/S2; Negative S3/S4
Pulmonary: Non Labored and Other (decreased airway movement bilaterally; coughing up phlegm)
Gastrointestinal: Soft, Non Tender and Non Distended
Neurological: Awake, Alert and AO x 3
Psychological: Calm
Objective Data
Lab Data
Lab Results
05/25/24 08:02
05/25/24 08:02
Estimated Creat Clear 64 ml/min 05/25/24 08:02
Lactic Acid 1.9 mmol/L (0.7-2.0) 05/12/24 17:01
Total Bilirubin 0.7 mg/dl (0.2-1.3) 05/12/24 15:36
AST 33 U/L (17-59) 05/12/24 15:36
ALT 37 U/L (0-50) 05/12/24 15:36
Alkaline Phosphatase 114 U/L (38-126) 05/12/24 15:36
Most recent labs reviewed.
Micro Results:
05/12/24 17:01 Blood Culture - Final
Blood/Venous No Growth - Final Report
05/12/24 17:01 Blood Culture - Final
Blood/Venous No Growth - Final Report
05/13/24 11:58 Body Fluid Culture - Final
Pleural Fluid No Growth After 72 Hours
Gram Stain - Final
05/13/24 07:41 Respiratory Culture - Final
Sputum Usual Respiratory Noemi
Gram Stain - Final
05/13/24 20:52 MRSA Screen - Final
Nose No Methicillin Resistant Staphylococcus aureus isolated.
05/13/24 05:32 Legionella Urinary Antigen - Final
Urine Negative for Legionella pneumophila Serogroup 1 antigen.
A negative result does not rule out the possiblity of
Legionella infection due to other serogroups or species of
Legionella. Clinical correlation is recommended.
05/12/24 15:36 Influenza Types A & B ([facility]ST[facility]) - Final
Nasal Swab Negative for Influenza A & B, NAAT
Negative results must be combined with clinical observations
and patient history.
Nucleic Acid Amplification test (NAAT)performed on the
[employer] platform.
Imaging:
05/13/2024 CXR (portable): Persistent moderate loculated right-sided pleural effusion with adjacent atelectasis. No visible pneumothorax.
05/12/2024 CT chest with contrast: Moderate to large lobulated right pleural effusion, possibly partially loculated, new in the interval since the comparison CT of 2020. Accompanying somewhat rounded/oblong shaped area of heterogeneous slight
decreased attenuation in the right lower lobe measuring approximately 5 cm. Differential diagnostic possibilities include infectious process (such as pneumonia) or mass/tumor. Please see full dictation for additional detail. Film personally
reviewed.
[2024-05-26] MEDS: LOVENOX 40 MG SC (16:11)
--- NOTE | 2024-05-26 16:19 | CM ---
CM reviewed pt with Dr Rock- [facility] tomorrow, no plan for tube feeds
VM left for [facility] and call with Yana
[facility] not able to see tomorrow
Pt placed on schedule for home visit/IV abx teaching for spouse on
Update clinicals provided to Yana and requesting ST as well
Update to Dr Rock
Discharge Disposition- home with Yana and [facility]
--- NOTE | 2024-05-26 17:10 | CON.MD ---
Consultation - Medical
-
Otolaryngology is consulted for dysphagia.
Laryngoscopy is performed at bedside; full consult dictated.
Pt is well known to me and has had dysphagia for at least 3 years.
Would continue diet as per speech therapy; he is improving as he recovers from pneumonia.
He might need tube feeding at some point in future if dysphagia progresses.
Dysphagia is the result of aging changes exacerbated by head and spinal injuries. No other recommendations for now.
[2024-05-27 03:20] VITALS: BP 142/76
--- NOTE | 2024-05-27 04:17 | DOWNTIME ---
There was a [facility] Client Director Microbiology Downtime on 05/27/2024 from 0100 to 05/27/2024 at 0355. Downtime documentation of patient's care, including medication administrations, has been reconciled in the electronic record per guidelines. Refer to the
patient's paper chart under the miscellaneous tab to see printed paper medication records and downtime forms.
[2024-05-27] MEDS: ZOSYN 50 IV ×3 (04:42→15:19)
[2024-05-27 08:10] VITALS: BP 128/63
[2024-05-27] MEDS: PROTONIX IV 40 MG IV (09:21)
[2024-05-27] MEDS: NSS (PRESERVATIVE FREE) 10 ML IV (09:22)
[2024-05-27] MEDS: ROBITUSSIN PO ×2 (09:22→12:46)
[2024-05-27] MEDS: VIMPAT 100 MG IV (09:22)
[2024-05-27 11:29] VITALS: BP 118/73
--- NOTE | 2024-05-27 12:13 | CM ---
Addendum entered by Rubia Barrientos 05/27/24 12:48:
Per Dr. Rock, plan for discharge today. Discussed with Hailey WYATT, Yancy ([facility]) and Bernadette ([facility]). Plan in place for last dose of ABX here prior to discharge home. Teaching to be done by [facility] with pt's .
Plan: Pt to discharge to home today following next dose of IV ABX. Plan in place for last dose of ABX here prior to discharge home. Teaching to be done by [facility] with pt's .
[facility]
Original Note:
spoke with Yancy ([facility]) and Bernadette ([facility]) to confirm home visit tomorrow for teaching and medication delivery.
Henri and his are prepared for discharge today. TT to Dr. Rock to determine if pt can be discharged to home today with [facility] and [facility]. Await response.
[2024-05-27] MEDS: ENTOCORT EC 3 MG PO (12:43)
[2024-05-27] MEDS: PROTONIX 40 MG PO (12:43)
--- NOTE | 2024-05-27 13:39 | W.PN.HOSP.TC ---
Today's Communication/Plan
-
DC
Assessment / Plan
Assessment / Plan
Community-acquired pneumonia involving the right lung and complicated by empyema. S/P chest tube placement and Intra pleural tPA with significant output and improvement of the pleural effusion. So far culture from the fluid is negative. Cytology
neg for malignancy.
Appreciate pulmonology input, chest tube removed 05/20, pulmonology signed off.
Neg blood cultures so far; Legionella Ag neg
Chest CT noted. Status post cefepime, then meropenem/Doxy, now on Zosyn as per ID
Cleared by ID for discharge Zosyn until seen by ID in the office
PICC inserted 05/22
Dysphagia -05/22/24 VSE shows aspiration with thin liquids, deeply penetrated nectar liquids via straw, severe retention with pur�es. His dysphagia has worsened in 8 days since his last VSE on 05/13/24, that was neg for aspiration.
SPEP/IF pending. B12 normal. No driving. OP NCS/EMG with RNS. Continue SPL therapy
Check ACH-R ab -pending
MRI brain reads says no acute infarct ;old encephalomalacia area in left temp lobe noted .ECHO no acute findings or TE .
cw diet per speech
ENT eval noted and appreciated- recommend continued speech tx, no interventions from ENT standpoint.
Leukocytosis - significant elevation with thrombocytosis - no prior hx of myeloproliferative disorder. Treat pneumonia and follow white count. Improving.
Skin rash - less prominent in back now . unclear if related abx . Cefepime switched to Meropenem, now on Zosyn. Resolved s/p triamcinolone ointment 3 times daily, continue Benadryl as needed
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
History of stroke�continue aspirin
DVT prophylaxis�subcu Lovenox
Full code
Medically stable for discharge.
Total time of discharge 32 minutes
.
Anticipated Discharge: Today
Subjective/Interval History
-
Date of Service: May 27, 2024
Doing well.
Managing modified diet ok with out much of issues.
No fever or chills.
Objective Data
-
Vital Signs:
Vital Signs
Temp Pulse Resp BP Pulse Ox
97.8 F 85 18 118/73 100
05/27/24 11:29 05/27/24 11:29 05/27/24 11:29 05/27/24 11:29 05/27/24 11:29
I&O
05/26/24 05/27/24 05/28/24
06:59 06:59 06:59
Intake Total 960 / 960
Output Total 600 / 600 1050 / 1050
Balance -600 / -600 -90 / -90
Review of Systems
-
Constitutional: Denies Fever
Respiratory: Denies Trouble Breathing
Cardiac: Denies Chest Pain or Palpitations
Abdomen/GI: Denies Abdominal Pain, Nausea or Vomiting
Neuro: Denies Dizzy
Physical Exam
-
General: No Apparent Distress
HEENT: Moist Mucous Membranes
Respiratory: Clear to Auscultation
Cardiac: Regular Rhythm and S1/S2
GI: Soft and Nontender
Neuro: AO x 3
--- NOTE | 2024-05-27 14:32 | W.PN.ID1 ---
Date of Service
Date of Service: May 27, 2024
Today's Communication
Continue antibiotics.
Assessment / Plan
Right lower lobe pneumonia
Pleural effusion vs. empyema
- cultures negative
Dysphagia/aspiration
Marked leukocytosis
- trending down
Anemia
Thrombocytosis
- suspect reactive
Rash.
- Not clear whether this is secondary to antibiotics, or if this is a contact of rash (would favor the latter)
- resolved
CVA
HTN
Seizure disorder
Hx TBI
Recommendations:
Continue current course of Zosyn.
Aspiration precaution
Office follow-up in 2 to 3 weeks.
����������������������������������������������������������
Chief Complaint
-: Pneumonia (Suspected empyema)
Subjective / Review of Systems
Review of Systems: No Fever, No Chills, Cough, No Sputum Production and No Chest Pain
Vital Signs / Physical Exam
Vital Signs
Vital Signs
Temp Pulse Resp BP Pulse Ox
97.8 F 85 18 118/73 100
05/27/24 11:29 05/27/24 11:29 05/27/24 11:29 05/27/24 11:29 05/27/24 11:29
Physical Exam
Constitutional: No Acute Distress, Comfortable, Non-toxic and Cachetic
Eyes: Sclera Anicteric
Cardiovascular: S1/S2; Negative S3/S4
Pulmonary: Coarse, Non Labored and Other (decreased airway movement bilaterally; coughing up phlegm)
Gastrointestinal: Soft, Non Tender and Non Distended
Neurological: Awake, Alert and AO x 3
Psychological: Calm
Objective Data
Lab Data
Lab Results
05/25/24 08:02
05/25/24 08:02
Estimated Creat Clear 64 ml/min 05/25/24 08:02
Lactic Acid 1.9 mmol/L (0.7-2.0) 05/12/24 17:01
Total Bilirubin 0.7 mg/dl (0.2-1.3) 05/12/24 15:36
AST 33 U/L (17-59) 05/12/24 15:36
ALT 37 U/L (0-50) 05/12/24 15:36
Alkaline Phosphatase 114 U/L (38-126) 05/12/24 15:36
Most recent labs reviewed.
Micro Results:
05/12/24 17:01 Blood Culture - Final
Blood/Venous No Growth - Final Report
05/12/24 17:01 Blood Culture - Final
Blood/Venous No Growth - Final Report
05/13/24 11:58 Body Fluid Culture - Final
Pleural Fluid No Growth After 72 Hours
Gram Stain - Final
05/13/24 07:41 Respiratory Culture - Final
Sputum Usual Respiratory Noemi
Gram Stain - Final
05/13/24 20:52 MRSA Screen - Final
Nose No Methicillin Resistant Staphylococcus aureus isolated.
05/13/24 05:32 Legionella Urinary Antigen - Final
Urine Negative for Legionella pneumophila Serogroup 1 antigen.
A negative result does not rule out the possiblity of
Legionella infection due to other serogroups or species of
Legionella. Clinical correlation is recommended.
05/12/24 15:36 Influenza Types A & B (KRISTYN) - Final
Nasal Swab Negative for Influenza A & B, NAAT
Negative results must be combined with clinical observations
and patient history.
Nucleic Acid Amplification test (NAAT)performed on the
[employer] Navigation platform.
Imaging:
05/13/2024 CXR (portable): Persistent moderate loculated right-sided pleural effusion with adjacent atelectasis. No visible pneumothorax.
05/12/2024 CT chest with contrast: Moderate to large lobulated right pleural effusion, possibly partially loculated, new in the interval since the comparison CT of 2020. Accompanying somewhat rounded/oblong shaped area of heterogeneous slight
decreased attenuation in the right lower lobe measuring approximately 5 cm. Differential diagnostic possibilities include infectious process (such as pneumonia) or mass/tumor. Please see full dictation for additional detail. Film personally
reviewed.
[2024-05-27 15:19] LABS: ANA, HEp-2, IgG Detected (<1:80)
[2024-05-27 16:04] VITALS: BP 97/57
[2024-05-27 22:02] LABS: Vitamin B1, Whole Blood 145 nmol/L (70-180)
[2024-05-28 03:17] LABS: Albumin 2.63 g/dL (3.75-5.01); Alpha 1 Globulin 0.48 g/dL (0.19-0.46); Alpha 2 Globulin 0.97 g/dL (0.48-1.05); SPEP IFE Reflex Not Done; Total Protein-Electrophoresis 5.7 g/dL (6.3-8.2)
--- NOTE | 2024-05-28 08:06 | W.DCSUMMARY ---
Discharge Summary
Discharge Data
Date of Admission: 05/12/24
Date of Discharge: 05/27/24
-
Pending Results: Yes (Acetylcholine receptor binding antibody)
Hospital Course
Primary diagnosis:
Right lung empyema needing treatments with chest tube and IV antibiotics including home IV antibiotics
Chronic dysphagia
Secondary diagnosis:
History of traumatic brain injury
Epilepsy
History of stroke
Hospital course:
Patient presented with fever cough and shortness of breath and diagnosed to have right lung empyema needing chest tube treatments.He was culture negative.He was seen by ID and was started on intravenous antibiotics and felt home antibiotics was
warranted and it was arranged. He was discharged home on IV Zosyn.
Is a chronic dysphagia that was noted here. It was worse than his baseline. He had a neurological workup including MRI of the brain which did not show any evidence of acute stroke. He in fact had a ENT eval who knows him from the last 3 years.
Laryngoscopy did not show any evidence of obstruction. He was seen by speech therapist who recommended a modified diet and outpatient continued speech treatments. No prior diagnosis of myasthenia gravis apparently on evaluation. Repeat ACH
receptor antibody was sent which was pending at the time of discharge.
Consultants on board:
ID-Riley Velez
Pulmonary-Reta Broderick
ENT - Khushi Clark
Neurology - Deniz Rolle
Discharge Plan
-
Patient Disposition: Home with Home Care
Discharge Diagnosis/Procedures: Right lung empyema status post chest tube treatments and IV antibiotics. Chronic dysphagia.
Diet: Other diet
Additional Diets: IDDSI 4(pureed) with mildly thick liquids
Activity: As tolerated
Driving Restrictions: No driving
Other Services: PT and ST
Referrals:
Chalino Knott MD [Family Provider] - in less than 1 week
Jose R Morton MD [Active] - in two to three weeks (with a CXR)
Prescriptions:
New
Zosyn in dextrose (iso-osm) 3.375 gram/50 mL Piggyback
3.375 g IV Q6H Qty: 1200 0RF
guaifenesin 100 mg/5 mL Liquid
200 mg PO QID Qty: 1000 0RF
acetaminophen 325 mg Tablet
650 mg PO Q4HPRN PRN (Reason: mild pain /fever>100.4 F) Qty: 1 0RF
Continued
doxazosin 1 mg tablet
1 mg PO DAILY
cyanocobalamin (vitamin B-12) 1,000 mcg Tablet
1,000 mcg PO DAILY@1300
omeprazole 40 mg capsule,delayed release(DR/EC)
40 mg PO DAILY@1300
aspirin 81 mg Tablet,Delayed Release (Dr/Ec)
81 mg PO DAILY@1300
gabapentin 100 mg capsule
100 mg PO QPM
lorazepam 1 mg tablet
1 mg PO QPM
Patient Comments:
05/12/2024: last filled 04/18/24, 30 tabs for 30 days from [facility]
budesonide 3 mg Capsule,Delayed,Extend.Release
3 mg PO DAILY@1300
lacosamide 100 mg tablet
100 mg PO BID
Discharge Orders:
Discharge Patient (As Directed); Ordered 05/27/24
Ordered By: Seun Rock
Discharge Date and Time
Discharge Date/Time: 05/27/24 16:17
Print Language: EGYPTIAN
[2024-05-29 07:03] LABS: ANA Pattern Speckled
== END 2024-05-27 16:17 | disposition home health service (06) | DRG 871 ==
LOC: 4 EAST ACU 19:03
PROVIDERS: Emergency Medicine; Family Medicine; Internal Medicine; Physician Assistant; Radiology Diagnostic Radiology; Radiology Neuroradiology; Radiology Vascular & Interventional Radiology; ADMITTING PHYSICIAN Internal Medicine; CONSULT PHYSICIAN Otolaryngology; CONSULT PHYSICIAN Psychiatry & Neurology Neurology; EMERGENCY PHYSICIAN Emergency Medicine; FAMILY PHYSICIAN Family Medicine; OTHER PHYSICIAN Internal Medicine Critical Care Medicine; OTHER PHYSICIAN Internal Medicine Infectious Disease
PROC: 0W993ZZ Drainage of Right Pleural Cavity, Percutaneous Approach (ICD-10-PCS; 2024-05-13)
PROC: 3E0L317 Introduction of Other Thrombolytic into Pleural Cavity, Percutaneous Approach (ICD-10-PCS; 2024-05-14)
PROC: 0W9930Z Drainage of Right Pleural Cavity with Drainage Device, Percutaneous Approach (ICD-10-PCS; 2024-05-14)
PROC: 05HY33Z Insertion of Infusion Device into Upper Vein, Percutaneous Approach (ICD-10-PCS; 2024-05-22)
PROC: 02WY33Z Revision of Infusion Device in Great Vessel, Percutaneous Approach (ICD-10-PCS; 2024-05-23)
PROC: 0CJS8ZZ Inspection of Larynx, Via Natural or Artificial Opening Endoscopic (ICD-10-PCS; 2024-05-26)
DX: A41.9 Sepsis, unspecified organism (principal); J18.9 Pneumonia, unspecified organism; J86.9 Pyothorax without fistula; J91.8 Pleural effusion in other conditions classified elsewhere; G93.49 Other encephalopathy; G40.909 Epilepsy, unspecified, not intractable, without status epilepticus; I10 Essential (primary) hypertension; F03.90 Unspecified dementia, unspecified severity, without behavioral disturbance, psychotic disturbance, mood disturbance, and anxiety; G62.9 Polyneuropathy, unspecified; D64.9 Anemia, unspecified; D75.839 Thrombocytosis, unspecified; R21 Rash and other nonspecific skin eruption; R13.12 Dysphagia, oropharyngeal phase; D72.829 Elevated white blood cell count, unspecified; Z20.822 Contact with and (suspected) exposure to COVID-19; Z79.82 Long term (current) use of aspirin; Z79.899 Other long term (current) drug therapy; Z87.820 Personal history of traumatic brain injury; Z87.891 Personal history of nicotine dependence
CPT/HCPCS: 88305; 32555; 32557; 32561; 70551; 71045; 71046; 71250; 71260; 74230; 80048; 80053; 82550; 82607; 83036; 83605; 83615; 83721; 83986; 84155; 84157; 84165; 84425; 84443; 85025; 85027; 86038; 86039; 86041; 87015; 87040; 87070; 87205; 87449; 87502; 87811; 88112; 92526; 92610; 92611; 93306; 96361; 96374; 97116; 97163; 97530; 99152; 99285; C1729; C1769; C9254; J2997; Q9950; Q9967

== ENCOUNTER → 2024-06-12 12:45 | Outpatient (REF) | payer MEDICARE, OTHER, SELFPAY | LOC: RAD 12:45 | PROVIDERS: ATTENDING PHYSICIAN Nurse Practitioner Adult Health; FAMILY PHYSICIAN Family Medicine | DX: J86.9 Pyothorax without fistula (principal); J91.8 Pleural effusion in other conditions classified elsewhere | CPT/HCPCS: 71250 ==

== ENCOUNTER → 2024-10-22 11:27 | Outpatient (REF) | payer MEDICARE, OTHER, SELFPAY | LOC: HWRAD 11:27 | PROVIDERS: ATTENDING PHYSICIAN Internal Medicine; FAMILY PHYSICIAN Family Medicine | DX: R91.1 Solitary pulmonary nodule (principal) | CPT/HCPCS: 71250 ==

== ENCOUNTER → 2024-11-06 09:57 | Outpatient (REF) | payer MEDICARE, OTHER, SELFPAY | LOC: RST 09:57 | PROVIDERS: ATTENDING PHYSICIAN Internal Medicine; FAMILY PHYSICIAN Family Medicine | DX: R13.19 Other dysphagia (principal) | CPT/HCPCS: 74230; 92611 ==